=== PATIENT | female | born 1940 | race Caucasian/White ===

== ENCOUNTER → 2016-07-10 | Outpatient (CLI) | payer MEDICARE ==
--- NOTE | 2016-07-10 11:45 | MM ---
Reason for exam: additional evaluation requested from prior study. Last mammogram was performed 1 year ago. History: Patient is postmenopausal, has history of breast cancer at age 75, and has history of high-risk lesion on a previous biopsy at age 61. Family history of breast cancer in mother at age 66. Malignant MG pre op needle loc LT of the left breast, August 30, 2015. Malignant US biopsy breast VAD LT of the left breast, July 22, 2015. Malignant US biopsy breast add'l VAD LT of the left breast, July 22, 2015. Benign stereotactic core biopsy of the left breast, May 18, 2003. Excisional biopsy of the right breast, January 03, 2002. High risk stereotactic core biopsy of the right breast, December 16, 2001. Cyst aspiration of the left breast. Core biopsy of the left breast. Core biopsy of the right breast. Physical Findings: Nurse did not find any significant physical abnormalities on exam. MG Diagnostic Mammo w CAD TYRESE Bilateral CC and MLO view(s) were taken. Prior study comparison: July 22, 2015, left breast MG diagnostic mammo LT wo CAD. June 18, 2015, bilateral MG screening mammo w CAD. Finding: There is a 7 mm equal density (isodense), obscured mass in the upper outer quadrant of the right breast. These results were verbally communicated with the patient and result sheet given to the patient on 07/10/16. ASSESSMENT: Incomplete: need additional imaging evaluation, BI-RAD 0 RECOMMENDATION: Ultrasound of the right breast.
--- NOTE | 2016-07-10 11:48 | USB ---
Reason for exam: additional evaluation requested from abnormal screening. History: Patient is postmenopausal, has history of breast cancer at age 75, and has history of high-risk lesion on a previous biopsy at age 61. Family history of breast cancer in mother at age 66. Malignant MG pre op needle loc LT of the left breast, August 30, 2015. Malignant US biopsy breast VAD LT of the left breast, July 22, 2015. Malignant US biopsy breast add'l VAD LT of the left breast, July 22, 2015. Benign stereotactic core biopsy of the left breast, May 18, 2003. Excisional biopsy of the right breast, January 03, 2002. High risk stereotactic core biopsy of the right breast, December 16, 2001. Cyst aspiration of the left breast. Core biopsy of the left breast. Core biopsy of the right breast. US Breast Limited RT Right breast ultrasound demonstrates a 8mm cystic lesion at 9 o'clock and a 5 x 4 x 4mm solid, hypoechoic lesion at 10 o'clock. These results were verbally communicated with the patient and result sheet given to the patient on 07/10/16. ASSESSMENT: Suspicious, BI-RAD 4 RECOMMENDATION: Surgical consultation and stereotactic core biopsy of the right breast. Called Dr. Lynne with mammographic findings and has scheduled an appointment for the patient for 07/23/16 at 1:[address] Garibay. Right breast ultrasound core biopsy scheduled for 07/17/16 at 11:30. PRELIMINARY REPORT CALLED AND FAXED TO DR. GARIBAY ON 07/10/16 AT 300/TP.
== END | disposition home or self-care (01) ==
LOC: RADMAMWWP 08:49
PROVIDERS: ATTEND Radiology Radiation Oncology
DX: R92.2 Inconclusive mammogram (principal); R92.8 Other abnormal and inconclusive findings on diagnostic imaging of breast; C50.412 Malignant neoplasm of upper-outer quadrant of left female breast
CPT/HCPCS: 76642; G0204

== ENCOUNTER → 2016-07-17 | Day surgery (SDC) | payer MEDICARE ==
[~2016-07-17] MED LIST: ALPRAZolam 0.25 MG TAB ONE; BACITRACIN OINT 1 EACH PACKET TOPICAL ONE; LIDOCAINE 1% INJ 10MG/ML (20 ML MDV) ONE; SODIUM BICARB 4% 5 ML VIAL (0.48 MEQ/ML) ONE
--- NOTE | 2016-07-17 12:47 | USB ---
EXAMINATION TYPE: US biopsy breast VAD RT, MG diagnostic mammo RT wo CAD DATE OF EXAM: 07/17/2016 12:19 PM CLINICAL HISTORY: US. TECHNIQUE: Ultrasound guided core biopsy of right 10:00 breast. COMPARISON: NONE FINDINGS: The procedure of ultrasound guided core biopsy was explained to the patient. Benefits, alternatives, and risks were discussed. An informed consent was then obtained. The patient was placed in supine positioning for imaging and for the procedure. The overlying skin was prepped and draped in usual sterile fashion. Lidocaine buffered with bicarbonate was used as anesthetic into the skin and subcutaneous tissue up to area of concern in the right breast. A abdulaziz was made with surgical scalpel. Under ultrasound guidance, a 12-gauge vacuum assisted biopsy gun device was used to obtain 3 core samples. Following this, a biopsy clip was left in lesion with confirmatory mammogram. The patient tolerated the procedure well without any immediate complication. The patient was kept in the radiology department for short stay after the procedure and then discharged home in stable condition. IMPRESSION: Successful, uncomplicated ultrasound guided core biopsy of area of concern in the right breast, full pathology results to follow. Pathology Results: Benign BREAST, RIGHT, CORE BIOPSY: FIBROCYSTIC CHANGES WITH DENSE FIBROSIS AND SCAR SUGGESTIVE OF PREVIOUS PROCEDURE OR TREATMENT RELATED CHANGES. NEGATIVE FOR MALIGNANCY. Recommendation Follow up ultrasound of the right breast in 6 months. ODILOND
== END ==
LOC: RADUSWWP 10:04
PROVIDERS: ATTEND Surgery
DX: R92.8 Other abnormal and inconclusive findings on diagnostic imaging of breast (principal); N60.31 Fibrosclerosis of right breast; L90.5 Scar conditions and fibrosis of skin; Z88.1 Allergy status to other antibiotic agents; Z88.2 Allergy status to sulfonamides; Z88.8 Allergy status to other drugs, medicaments and biological substances
CPT/HCPCS: 88305; 19083; G0206; A4648; J2001

== ENCOUNTER → 2016-08-18 | Outpatient (CLI) | payer MEDICARE ==
[2016-08-18 16:18] LABS: Appearance,Urine Clear (Clear); Bilirubin,Urine Negative (Negative); Glucose,Urine (UA) Negative (Negative); Ketones,Urine Negative (Negative); Leukocyte Esterase,Urine Negative (Negative); Nitrite,Urine Negative (Negative); Particle Count 762; Protein,Urine 2+ (Negative); RBC,Urine <1 /hpf (0-5); Specific Gravity,Urine 1.006 (1.001-1.035); Squamous Epithelial Cell,Urine <1 /hpf (0-4); UA Billing (MACRO vs. MICRO) MICRO; Urobilinogen,Urine <2.0 mg/dL (<2.0); WBC,Urine 2 /hpf (0-5)
[2016-08-18 16:24] LABS: Calcium 9.1 mg/dL (8.4-10.2); Magnesium 2.1 mg/dL (1.6-2.3); Phosphorous 3.3 mg/dL (2.5-4.5); Potassium 4.5 mmol/L (3.5-5.1); Total Bilirubin 0.5 mg/dL (0.2-1.3); Total Protein 5.4 g/dL (6.3-8.2); Uric Acid 5.6 mg/dL (3.7-7.4)
[2016-08-18 16:39] LABS: Creatinine,Urine Random 49.4 mg/dL
[2016-08-19 08:53] LABS: Mis test requested (Non-blood) TP Urine Random
== END | disposition home or self-care (01) ==
LOC: LABWHC1 15:44
PROVIDERS: ATTEND Internal Medicine
DX: N18.3 Chronic kidney disease, stage 3 (moderate) (principal); N39.0 Urinary tract infection, site not specified; M10.9 Gout, unspecified; R80.9 Proteinuria, unspecified; E21.3 Hyperparathyroidism, unspecified; E55.9 Vitamin D deficiency, unspecified
CPT/HCPCS: 36415; 80053; 81001; 82306; 82570; 83735; 83970; 84100; 84156; 84550

== ENCOUNTER → 2016-11-12 | Outpatient (CLI) | payer MEDICARE ==
[2016-11-12 09:11] LABS: CH 33.9; CHCM 32.9; HCT 38.1 % (34.0-46.0); HDW 2.61; HGB 12.5 gm/dL (11.4-16.0); MCHC 32.9 g/dL (31.0-37.0); MCV 103.4 fL (80.0-100.0); Macrocytosis Slight; Mean Platelet Volume 9.8; RBC 3.68 m/uL (3.80-5.40); WBC 5.2 k/uL (3.8-10.6)
[2016-11-12 11:25] LABS: Calcium 9.1 mg/dL (8.4-10.2); Magnesium 2.1 mg/dL (1.6-2.3); Phosphorous 4.2 mg/dL (2.5-4.5); Potassium 4.6 mmol/L (3.5-5.1); Total Bilirubin 0.7 mg/dL (0.2-1.3); Uric Acid 6.1 mg/dL (3.7-7.4)
[2016-11-12 11:38] LABS: % Iron Saturation 31.8 % (20-50)
== END | disposition home or self-care (01) ==
LOC: LABWHC1 08:23
PROVIDERS: ATTEND Internal Medicine
DX: N18.3 Chronic kidney disease, stage 3 (moderate) (principal); D50.9 Iron deficiency anemia, unspecified; N25.81 Secondary hyperparathyroidism of renal origin; E55.9 Vitamin D deficiency, unspecified; M10.9 Gout, unspecified; G62.9 Polyneuropathy, unspecified
CPT/HCPCS: 36415; 80053; 82306; 82607; 82728; 83540; 83550; 83735; 83970; 84100; 84550; 85027

== ENCOUNTER → 2016-12-28 | Outpatient (CLI) | payer MEDICARE ==
--- NOTE | 2016-12-29 07:14 | MM ---
Reason for exam: follow-up at short interval from prior study. Last mammogram was performed 5 months ago. History: Patient is postmenopausal, has history of breast cancer at age 75, and has history of high-risk lesion on a previous biopsy at age 61. Family history of breast cancer in mother at age 66. Benign US biopsy breast VAD RT of the right breast, July 17, 2016. Malignant MG pre op needle loc LT of the left breast, August 30, 2015. Malignant US biopsy breast VAD LT of the left breast, July 22, 2015. Malignant US biopsy breast add'l VAD LT of the left breast, July 22, 2015. Benign stereotactic core biopsy of the left breast, May 18, 2003. Excisional biopsy of the right breast, January 03, 2002. High risk stereotactic core biopsy of the right breast, December 16, 2001. Cyst aspiration of the left breast. Core biopsy of the left breast. Core biopsy of the right breast. Physical Findings: Nurse did not find any significant physical abnormalities on exam. MG 3D Diag Mammo W/Cad RT CC and MLO view(s) were taken of the right breast. Prior study comparison: July 17, 2016, right breast MG diagnostic mammo RT wo CAD. July 10, 2016, bilateral MG diagnostic mammo w CAD TYRESE. The breast tissue is heterogeneously dense. This may lower the sensitivity of mammography. Previous mammotome biopsy in the right breast. Distortion noted in the right upper outer quadrant, 9.4cm from nipple. Ultrasound is recommended. These results were verbally communicated with the patient and result sheet given to the patient on 12/28/16. ASSESSMENT: Incomplete: need additional imaging evaluation, BI-RAD 0 RECOMMENDATION: Ultrasound of the right breast.
--- NOTE | 2016-12-29 07:17 | USB ---
Reason for exam: follow-up at short interval from prior study. History: Patient is postmenopausal, has history of breast cancer at age 75, and has history of high-risk lesion on a previous biopsy at age 61. Family history of breast cancer in mother at age 66. Benign US biopsy breast VAD RT of the right breast, July 17, 2016. Malignant MG pre op needle loc LT of the left breast, August 30, 2015. Malignant US biopsy breast VAD LT of the left breast, July 22, 2015. Malignant US biopsy breast add'l VAD LT of the left breast, July 22, 2015. Benign stereotactic core biopsy of the left breast, May 18, 2003. Excisional biopsy of the right breast, January 03, 2002. High risk stereotactic core biopsy of the right breast, December 16, 2001. Cyst aspiration of the left breast. Core biopsy of the left breast. Core biopsy of the right breast. US Breast Limited RT Right breast ultrasound demonstrates a hyperechoic lesion at 11 o'clock clip and a 0.4 x 0.6 x 0.4cm oval, cystic lesion at 10 o'clock. These results were verbally communicated with the patient and result sheet given to the patient on 12/28/16. ASSESSMENT: Benign, BI-RAD 2 RECOMMENDATION: Follow-up diagnostic mammogram of both breasts in 6 months.
== END | disposition home or self-care (01) ==
LOC: RADMAMWWP 13:20
PROVIDERS: ATTEND Surgery
DX: Z08 Encounter for follow-up examination after completed treatment for malignant neoplasm (principal); Z85.3 Personal history of malignant neoplasm of breast
CPT/HCPCS: 76642; G0206; G0279

== ENCOUNTER → 2017-02-17 | Outpatient (CLI) | payer MEDICARE ==
[2017-02-17 14:59] LABS: Appearance,Urine Clear (Clear); Bilirubin,Urine Negative (Negative); Glucose,Urine (UA) Negative (Negative); Ketones,Urine Negative (Negative); Leukocyte Esterase,Urine Negative (Negative); Mucus,Urine Rare /hpf; Nitrite,Urine Negative (Negative); Particle Count 1786; Protein,Urine 2+ (Negative); Squamous Epithelial Cell,Urine <1 /hpf (0-4); UA Billing (MACRO vs. MICRO) MICRO; Urobilinogen,Urine <2.0 mg/dL (<2.0); WBC,Urine 1 /hpf (0-5)
[2017-02-17 15:05] LABS: Calcium 8.3 mg/dL (8.4-10.2); Phosphorous 4.3 mg/dL (2.5-4.5); Potassium 4.6 mmol/L (3.5-5.1); Total Bilirubin 0.4 mg/dL (0.2-1.3); Total Protein 4.6 g/dL (6.3-8.2); Uric Acid 6.5 mg/dL (3.7-7.4)
[2017-02-17 15:21] LABS: Basophils % (A) 0 %; CHCM 33.4; Eosinophils # (A) 0.3 k/uL (0-0.7); Eosinophils % (A) 3 %; HCT 34.2 % (34.0-46.0); HDW 2.82; HGB 11.6 gm/dL (11.4-16.0); Luc # (Auto) 0.33; Luc % (Auto) 5; Lymphocytes # (A) 1.7 k/uL (1.0-4.8); Lymphocytes % (A) 23 %; MCH 33.8 pg (25.0-35.0); MCV 99.7 fL (80.0-100.0); Mean Platelet Volume 9.5; Monocytes # (A) 0.8 k/uL (0-1.0); Monocytes % (A) 12 %; Neutrophils # (A) 4.2 k/uL (1.3-7.7); Neutrophils % (A) 57 %; RBC 3.44 m/uL (3.80-5.40); RDW 14.7 % (11.5-15.5); WBC 7.3 k/uL (3.8-10.6); WBC (Perox) 7.23
[2017-02-17 19:49] LABS: % Iron Saturation 39.4 % (20-50)
== END | disposition home or self-care (01) ==
LOC: LABWHC1 14:05
PROVIDERS: ATTEND Internal Medicine
DX: N18.3 Chronic kidney disease, stage 3 (moderate) (principal); D64.9 Anemia, unspecified; E55.9 Vitamin D deficiency, unspecified; M10.9 Gout, unspecified; R39.15 Urgency of urination
CPT/HCPCS: 36415; 80053; 81001; 82306; 82570; 82728; 83540; 83550; 83735; 83970; 84100; 84156; 84550; 85025; 87086

== ENCOUNTER 2017-05-15 12:37 | Emergency (ER) | payer MEDICARE ==
[2017-05-15] MEDS ORDERED: SODIUM CHLORIDE 0.9% 1,000 ML IV STA (13:29)
[2017-05-15 13:46] LABS: Basophils # (A) 0.1 k/uL (0-0.2); Basophils % (A) 1 %; CH 33.1; CHCM 32.8; Eosinophils # (A) 0.2 k/uL (0-0.7); Eosinophils % (A) 3 %; HCT 41.1 % (34.0-46.0); HDW 2.43; HGB 13.2 gm/dL (11.4-16.0); Luc # (Auto) 0.25; Luc % (Auto) 3; Lymphocytes # (A) 1.6 k/uL (1.0-4.8); Lymphocytes % (A) 22 %; MCH 32.5 pg (25.0-35.0); MCV 101.5 fL (80.0-100.0); Macrocytosis Slight; Mean Platelet Volume 8.5; Monocytes # (A) 0.8 k/uL (0-1.0); Monocytes % (A) 10 %; Neutrophils # (A) 4.5 k/uL (1.3-7.7); Neutrophils % (A) 61 %; RBC 4.05 m/uL (3.80-5.40); WBC 7.4 k/uL (3.8-10.6); WBC (Perox) 7.74
--- NOTE | 2017-05-15 13:47 | ED ---
General Adult HPI - General Chief complaint: Allergic Reaction Stated complaint: Dizzy, poss reaction from medication Time Seen by Provider: 05/15/17 13:16 Source: patient, RN notes reviewed Mode of arrival: wheelchair Limitations: no limitations - History of Present Illness Initial comments: Patient is 77-year-old female who presents emergency room today with chief complaint of feeling lightheaded off and on over the last day. Patient does admit that she started a new antibiotic dose of Floxin. She states she was at [facility] doctor had earwax removed and was placed on antibiotics along with Claritin-D and eardrums. She states that her ears feel fine today. She states that she has felt somewhat lightheaded at times and states she is using a cane which usually does not have to use. She states it's like a "wave" that comes over and is conscious that quickly. She states she does have some old on something that it's gone. She was unsure if this was related to the medication as she was reading the side effects and believes that it might be due to this Floxin. She denies any other complaints or symptoms at this time. She states she feels relatively well down here in the emergency room. Patient denies any recent fever, chills, shortness of breath, chest pain, back pain, abdominal pain , nausea or vomiting, numbness or tingling, dysuria or hematuria, constipation or diarrhea, headaches or visual changes, or any other complaints. - Related Data Home Medications Medication Instructions Recorded Confirmed Acetaminophen Tab [Tylenol] 1,000 mg PO Q6HR PRN 11/11/13 05/15/17 Albuterol Sulfate [Proair Hfa] 1 puff INHALATION RT-Q6H PRN 11/11/13 05/15/17 Zolpidem [Ambien] 5 mg PO HS PRN 11/11/13 05/15/17 Brimonidine Tartrate [Alphagan P 1 drop BOTH EYES BID 08/28/15 05/15/17 0.1% Ophth Soln] Budesonide/Formoterol Fumarate 2 puff INHALATION RT-BID 08/28/15 05/15/17 [Symbicort 80-4.5 Mcg Inhaler] Desoximetasone [Topicort] 1 applic TOPICAL BID PRN 08/28/15 05/15/17 Flaxseed [Flaxseed Oil] 1,000 mg PO DAILY 08/28/15 05/15/17 Dyess-3 Fatty Acids/Fish Oil [Fish 900 mg PO DAILY 08/28/15 05/15/17 Oil 1,000 mg Softgel] Dorzolamide 2% [Trusopt 2%] 1 drops RIGHT EYE BID 03/02/16 05/15/17 Montelukast [Singulair] 10 mg PO DAILY 03/02/16 05/15/17 Omeprazole [PriLOSEC] 20 mg PO AC-BRKFST 03/02/16 05/15/17 Propylene Glycol/Peg 400/Pf 1 drop BOTH EYES BID 03/02/16 05/15/17 [Systane 0.3-0.4% Eye Drops] Acetaminophen Tab [Tylenol Tab] 500 mg PO HS 04/27/16 05/15/17 Cimetidine [Tagamet] 400 mg PO BID 04/27/16 05/15/17 Multivitamins, Thera [Multivitamin] 1 tab PO DAILY 04/27/16 05/15/17 Polyethylene Glycol 3350 [Miralax] 17 gm PO DAILY 04/27/16 05/15/17 Simvastatin [Zocor] 80 mg PO HS 04/27/16 05/15/17 Betamethasone Dipropionate 1 applic TOPICAL BID 05/15/17 05/15/17 [Betamethasone Dipropionate 0.05%] Ergocalciferol [Vitamin D2] 50,000 unit PO Q30D 05/15/17 05/15/17 Folic Acid 0.4 mg PO DAILY 05/15/17 05/15/17 Furosemide [Lasix] 40 mg PO DAILY 05/15/17 05/15/17 Meclizine [Antivert] 12.5 mg PO QID PRN 05/15/17 05/15/17 Prochlorperazine [Compazine] 10 mg PO Q8H PRN 05/15/17 05/15/17 Zylet 1 drop BOTH EYES DAILY PRN 05/15/17 05/15/17 traMADol HCL [Ultram] 50 mg PO Q4HR PRN 05/15/17 05/15/17 Allergies Allergy/AdvReac Type Severity Reaction Status Date / Time adhesive tape Allergy PEELS OFF Verified 05/15/17 13:37 SKIN aspirin Allergy Unknown Verified 05/15/17 13:37 ciprofloxacin [From Cipro] Allergy Unknown Verified 05/15/17 13:37 codeine Allergy Hallucinati Verified 05/15/17 13:37 ons Sulfa (Sulfonamide Allergy Unknown Verified 05/15/17 13:37 Antibiotics) NSAIDS (Non-Steroidal AdvReac CAUSED Verified 05/15/17 13:37 Anti-Inflamma BLEEDING ULCER prednisone AdvReac "I WAS Verified 05/15/17 13:37 GOING A MILE A MINUTE" BACTRIM/ZINC OINTMENT Allergy BUMPS Uncoded 05/15/17 12:52 Review of Systems ROS Statement: Those systems with pertinent positive or pertinent negative responses have been documented in the HPI. ROS Other: All systems not noted in ROS Statement are negative. Past Medical History Past Medical History: Asthma, Cancer, Hyperlipidemia, Osteoarthritis (OA), Rheumatoid Arthritis (RA) Additional Past Medical History / Comment(s): left breast ca, migraines, borderline high BP, hernia, hx ulcers, abdominal pain, irregular bowel movements , scrape on rt arm(skin thin on rt arm) History of Any Multi-Drug Resistant Organisms: None Reported Past Surgical History: Breast Surgery, Section, Joint Replacement, Orthopedic Surgery, Tonsillectomy Additional Past Surgical History / Comment(s): d&c, left sided lymph nodes removed- left breast lumpectomy, retina surgery, Yuval knee replacement, left ankle surgery, yuval cataracts,left knee arthroscopy Past Anesthesia/Blood Transfusion Reactions: Motion Sickness Additional Past Anesthesia/Blood Transfusion Reaction / Comment(s): motion sickness as child Past Psychological History: Anxiety, Depression Smoking Status: Never smoker Past Alcohol Use History: None Reported Past Drug Use History: None Reported - Past Family History Mother Family Medical History: Cancer General Exam - General Exam Comments Initial Comments: General: The patient is awake and alert, in no distress, and does not appear acutely ill. Eye: Pupils are equal, round and reactive to light, extra-ocular movements are intact. No nystagmus. There is normal conjunctiva bilaterally. No signs of icterus. Ears, nose, mouth and throat: There are moist mucous membranes and no oral lesions. Neck: The neck is supple, there is no tenderness or JVD. Cardiovascular: There is a regular rate and rhythm. No murmur, rub or gallop is appreciated. Respiratory: Lungs are clear to auscultation, respirations are non-labored, breath sounds are equal. No wheezes, stridor, rales, or rhonchi. Gastrointestinal: Soft, non-distended, non-tender abdomen without masses or organomegaly noted. There is no rebound or guarding present. No CVA tenderness. Bowel sounds are unremarkable. Musculoskeletal: Normal ROM, no tenderness. Strength 5/5. Sensation intact. Pulses equal bilaterally 2+. Neurological: A&O x 3. CN II-XII intact, There are no obvious motor or sensory deficits. Coordination appears grossly intact. Speech is normal. Skin: Skin is warm and dry and no rashes or lesions are noted. Psychiatric: Cooperative, appropriate mood & affect, normal judgment. Limitations: no limitations Course Vital Signs 05/15/17 05/15/17 12:45 15:04 Temperature 97.0 F L 97.5 F L Pulse Rate 89 68 Respiratory 18 13 Rate Blood Pressure 142/67 146/84 O2 Sat by Pulse 99 98 Oximetry EKG Findings - EKG Comments: EKG Findings:: EKG performed at 1358: Shows normal sinus rhythm at 75 bpm KS interval 176. QRS 146. QT/QTc 442/493. No acute ST changes. Compared to previous EKG on 01/19/2016. Medical Decision Making - Medical Decision Making Patient reexamined at this time showing no signs of distress. Patient's labs been reviewed and are unremarkable. Patient's patient feeling better after liter bolus emergency room. Patient's CT is negative. This is an attending physician Dr. Warner. Patient advised follow-up family doctor over the next 2 days return to emergency room if any symptoms increase or worsen or for any other concerns. - Lab Data Result diagrams: 05/15/17 13:35 05/15/17 13:35 Lab Results 05/15/17 05/15/17 05/15/17 Range/Units 13:35 13:35 13:35 WBC 7.4 (3.8-10.6) k/uL RBC 4.05 (3.80-5.40) m/uL Hgb 13.2 (11.4-16.0) gm/dL Hct 41.1 (34.0-46.0) % MCV 101.5 H (80.0-100.0) fL MCH 32.5 (25.0-35.0) pg MCHC 32.0 (31.0-37.0) g/dL RDW 14.0 (11.5-15.5) % Plt Count 252 (150-450) k/uL Neutrophils % 61 % Lymphocytes % 22 % Monocytes % 10 % Eosinophils % 3 % Basophils % 1 % Neutrophils # 4.5 (1.3-7.7) k/uL Lymphocytes # 1.6 (1.0-4.8) k/uL Monocytes # 0.8 (0-1.0) k/uL Eosinophils # 0.2 (0-0.7) k/uL Basophils # 0.1 (0-0.2) k/uL Macrocytosis Slight Sodium 134 L (137-145) mmol/L Potassium 3.9 (3.5-5.1) mmol/L Chloride 101 (98-107) mmol/L Carbon Dioxide 29 (22-30) mmol/L Anion Gap 4 mmol/L BUN 28 H (7-17) mg/dL Creatinine 1.63 H (0.52-1.04) mg/dL Est GFR (MDRD) Af Amer 37 (>60 ml/min/1.73 sqM) Est GFR (MDRD) Non-Af 31 (>60 ml/min/1.73 sqM) Glucose 119 H (74-99) mg/dL Calcium 8.9 (8.4-10.2) mg/dL Total Bilirubin 0.2 (0.2-1.3) mg/dL AST 39 H (14-36) U/L ALT 47 (9-52) U/L Alkaline Phosphatase 97 (38-126) U/L Troponin I 0.025 (0.000-0.034) ng/mL Total Protein 5.3 L (6.3-8.2) g/dL Albumin 3.1 L (3.5-5.0) g/dL Disposition Clinical Impression: Lightheaded Disposition: HOME SELF-CARE Condition: Good Instructions: Lightheadedness (ED) Additional Instructions: Please continue medication as discussed. Please follow-up with family doctor in the next 2 days of symptoms have not improved. Please return to emergency room if the symptoms increase or worsen or for any other concerns. Referrals: Que Pablo MD [Primary Care Provider] - 1-2 days Time of Disposition: 15:12
[2017-05-15 13:57] LABS: Calcium 8.9 mg/dL (8.4-10.2); Potassium 3.9 mmol/L (3.5-5.1); Total Bilirubin 0.2 mg/dL (0.2-1.3); Total Protein 5.3 g/dL (6.3-8.2)
--- NOTE | 2017-05-15 14:42 | CT ---
EXAMINATION TYPE: CT brain wo con DATE OF EXAM: 05/15/2017 COMPARISON: 02/20/2010 HISTORY: Dizziness CT DLP: 920.2 mGycm Automated exposure control for dose reduction was used. FINDINGS: There is mild cerebral cortical atrophy. There is no mass effect nor midline shift. There is no sign of intracranial hemorrhage. There is a 2 cm hypodense area in the insula left temporal lobe. The calv arium is intact. 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 NO ACUTE INTRACRANIAL ABNORMALITY. NO CHANGE.
[2017-05-15 15:27] VITALS: BP 144/71; PULSE 70; RESP 16; TEMP 97.4
== END 2017-05-15 15:27 | disposition home or self-care (01) ==
LOC: EC 12:37
DX: R42 Dizziness and giddiness (principal); J45.909 Unspecified asthma, uncomplicated; E78.5 Hyperlipidemia, unspecified; Z85.3 Personal history of malignant neoplasm of breast; Z79.51 Long term (current) use of inhaled steroids; Z79.899 Other long term (current) drug therapy; Z91.048 Other nonmedicinal substance allergy status; Z88.6 Allergy status to analgesic agent; Z88.1 Allergy status to other antibiotic agents; Z88.5 Allergy status to narcotic agent; Z88.8 Allergy status to other drugs, medicaments and biological substances; Z88.2 Allergy status to sulfonamides
CPT/HCPCS: 36415; 70450; 80053; 84484; 85025; 93005; 96360; 99284

== ENCOUNTER → 2017-06-22 | Outpatient (CLI) | payer MEDICARE ==
[2017-06-22 14:29] LABS: Calcium 9.1 mg/dL (8.4-10.2); Potassium 4.4 mmol/L (3.5-5.1)
== END | disposition home or self-care (01) ==
LOC: LABWHC1 13:36
PROVIDERS: ATTEND Internal Medicine
DX: N18.9 Chronic kidney disease, unspecified (principal)
CPT/HCPCS: 36415; 80048

== ENCOUNTER → 2017-07-14 | Outpatient (CLI) | payer MEDICARE ==
[2017-07-14 15:51] LABS: Albumin 3.3 g/dL (3.5-5.0); Calcium 9.2 mg/dL (8.4-10.2); Phosphorus 3.3 mg/dL (2.5-4.5); Potassium 4.2 mmol/L (3.5-5.1)
== END | disposition home or self-care (01) ==
LOC: LABWHC1 15:00
PROVIDERS: ATTEND Internal Medicine
DX: N18.3 Chronic kidney disease, stage 3 (moderate) (principal)
CPT/HCPCS: 36415; 80048; 80069

== ENCOUNTER → 2017-09-20 | Outpatient (CLI) | payer MEDICARE ==
[2017-09-20 09:37] LABS: HCT 40.4 % (34.0-46.0); HGB 13.7 gm/dL (11.4-16.0); MCH 31.4 pg (25.0-35.0); MCHC 33.9 g/dL (31.0-37.0); MCV 92.4 fL (80.0-100.0); Mean Platelet Volume 7.6; Platelet Count 275 k/uL (150-450); RBC 4.37 m/uL (3.80-5.40); RDW 13.5 % (11.5-15.5); WBC 7.5 k/uL (3.8-10.6)
[2017-09-20 09:56] LABS: Magnesium 1.9 mg/dL (1.6-2.3); Phosphorus 4.6 mg/dL (2.5-4.5); Potassium 4.2 mmol/L (3.5-5.1); Total Bilirubin 0.4 mg/dL (0.2-1.3); Total Protein 5.3 g/dL (6.3-8.2); Uric Acid 5.4 mg/dL (3.7-7.4)
[2017-09-20 10:10] LABS: Creatinine,Urine Random 35.8 mg/dL
[2017-09-20 10:28] LABS: Appearance,Urine Clear (Clear); Bacteria,Urine Rare /hpf; Bilirubin,Urine Negative (Negative); Blood,Urine Negative (Negative); Color,Urine Light Yellow; Glucose,Urine (UA) Negative (Negative); Ketones,Urine Negative (Negative); Leukocyte Esterase,Urine Negative (Negative); Nitrite,Urine Negative (Negative); Protein,Urine 2+ (Negative); RBC,Urine 1 /hpf (0-5); Specific Gravity,Urine 1.006 (1.001-1.035); Squamous Epithelial Cell,Urine <1 /hpf (0-4); Urobilinogen,Urine <2.0 mg/dL (<2.0); WBC,Urine 1 /hpf (0-5)
[2017-09-20 15:46] LABS: Protein, Total 5.1 g/dL (6.2-8.2)
[2017-09-20 15:50] LABS: Iron Saturation 32.48 (12.00-45.00)
[2017-09-20 15:54] LABS: Parathyroid Hormone Intact 47.2 pg/mL (14.0-72.0)
[2017-09-20 15:59] LABS: Vitamin D 25 Hydroxy 29.7 ng/mL (30.0-100.0)
[2017-09-21 11:47] LABS: Immunoglobulin M 35.5 mg/dL (40.0-280.0)
[2017-09-22 10:33] LABS: Albumin 3.04 g/dL (3.80-4.90)
== END | disposition home or self-care (01) ==
LOC: LABWHC1 08:22
PROVIDERS: ATTEND Internal Medicine
DX: C50.512 Malignant neoplasm of lower-outer quadrant of left female breast (principal); J45.909 Unspecified asthma, uncomplicated; G62.9 Polyneuropathy, unspecified; E85.9 Amyloidosis, unspecified; N18.3 Chronic kidney disease, stage 3 (moderate); D63.1 Anemia in chronic kidney disease; N39.0 Urinary tract infection, site not specified; R80.9 Proteinuria, unspecified; E21.3 Hyperparathyroidism, unspecified; E55.9 Vitamin D deficiency, unspecified; M10.9 Gout, unspecified
CPT/HCPCS: 36415; 80053; 81001; 82306; 82570; 82728; 82784; 83540; 83550; 83735; 83883; 83970; 84100; 84156; 84165; 84550; 85027; 86334

== ENCOUNTER → 2017-12-20 | Outpatient (CLI) | payer MEDICARE ==
[2017-12-20 14:30] LABS: HCT 40.2 % (34.0-46.0); HGB 13.3 gm/dL (11.4-16.0); MCH 30.4 pg (25.0-35.0); MCV 92.2 fL (80.0-100.0); Mean Platelet Volume 7.8; Platelet Count 236 k/uL (150-450); RBC 4.36 m/uL (3.80-5.40); RDW 14.2 % (11.5-15.5); WBC 8.1 k/uL (3.8-10.6)
[2017-12-20 14:33] LABS: Appearance,Urine Clear (Clear); Bilirubin,Urine Negative (Negative); Blood,Urine Negative (Negative); Color,Urine Yellow; Glucose,Urine (UA) Negative (Negative); Ketones,Urine Negative (Negative); Leukocyte Esterase,Urine Trace (Negative); Mucus,Urine Rare /hpf; Nitrite,Urine Negative (Negative); Protein,Urine 2+ (Negative); RBC,Urine 1 /hpf (0-5); Specific Gravity,Urine 1.011 (1.001-1.035); Squamous Epithelial Cell,Urine <1 /hpf (0-4); Urobilinogen,Urine <2.0 mg/dL (<2.0); WBC,Urine 2 /hpf (0-5)
[2017-12-20 14:43] LABS: Albumin 3.3 g/dL (3.5-5.0); Potassium 4.6 mmol/L (3.5-5.1); Total Protein 5.3 g/dL (6.3-8.2); Uric Acid 5.5 mg/dL (3.7-7.4)
[2017-12-20 14:44] LABS: Calcium 8.9 mg/dL (8.4-10.2); Phosphorus 3.7 mg/dL (2.5-4.5); Total Bilirubin 0.3 mg/dL (0.2-1.3)
[2017-12-20 15:02] LABS: Creatinine,Urine Random 76.7 mg/dL
[2017-12-20 18:32] LABS: Parathyroid Hormone Intact 59.6 pg/mL (14.0-72.0)
[2017-12-20 18:51] LABS: Iron Saturation 22.77 (12.00-45.00)
[2017-12-20 19:03] LABS: Vitamin D 25 Hydroxy 41.7 ng/mL (30.0-100.0)
== END | disposition home or self-care (01) ==
LOC: LABWHC1 13:59
PROVIDERS: ATTEND Internal Medicine
DX: N18.3 Chronic kidney disease, stage 3 (moderate) (principal); D64.9 Anemia, unspecified; E55.9 Vitamin D deficiency, unspecified; M10.9 Gout, unspecified
CPT/HCPCS: 36415; 80053; 81001; 82306; 82570; 82728; 83540; 83550; 83735; 83970; 84100; 84156; 84550; 85027

== ENCOUNTER → 2018-03-16 | Outpatient (CLI) | payer MEDICARE ==
--- NOTE | 2018-03-16 10:23 | MM ---
Reason for exam: history of breast cancer, mastectomy. Last mammogram was performed 7 months ago. History: Patient is postmenopausal, has history of breast cancer at age 75, and has history of high-risk lesion on a previous biopsy at age 61. Family history of breast cancer in mother at age 66. Benign US biopsy breast VAD RT of the right breast, July 17, 2016. Malignant MG pre op needle loc LT of the left breast, August 30, 2015. Malignant US biopsy breast VAD LT of the left breast, July 22, 2015. Malignant US biopsy breast add'l VAD LT of the left breast, July 22, 2015. Benign stereotactic core biopsy of the left breast, May 18, 2003. Excisional biopsy of the right breast, January 03, 2002. High risk stereotactic core biopsy of the right breast, December 16, 2001. Cyst aspiration of the left breast. Core biopsy of the left breast. Core biopsy of the right breast. Took hormonal contraceptives for 6 months beginning at age 25. Physical Findings: Nurse did not find any significant physical abnormalities on exam. MG 3D Diag Mammo W/Cad TYRESE Bilateral CC and MLO view(s) were taken. Prior study comparison: August 09, 2017, bilateral MG 3d diag mammo w/cad TYRESE. December 28, 2016, right breast MG 3d diag mammo w/cad RT. June 18, 2015, bilateral MG screening mammo w CAD. The breast tissue is heterogeneously dense. This may lower the sensitivity of mammography. Previous mammotome biopsy in the right breast. Stable scattered dystrophic calcifications on the left. Fat necrosis calcifications at the left lumpectomy site, stable from 2017. No significant new findings when compared with previous films. These results were verbally communicated with the patient and result sheet given to the patient on 03/16/18. ASSESSMENT: Benign, BI-RAD 2 RECOMMENDATION: Follow-up diagnostic mammogram of both breasts in 1 year.
== END | disposition home or self-care (01) ==
LOC: RADMAMWWP 08:54
PROVIDERS: ATTEND Radiology Radiation Oncology
DX: C50.412 Malignant neoplasm of upper-outer quadrant of left female breast (principal)
CPT/HCPCS: 77066; G0279; 77062

== ENCOUNTER → 2018-04-22 | Outpatient (CLI) | payer MEDICARE ==
[2018-04-22 12:54] LABS: Appearance,Urine Clear (Clear); Bacteria,Urine Rare /hpf; Bilirubin,Urine Negative (Negative); Blood,Urine Negative (Negative); Color,Urine Light Yellow; Glucose,Urine (UA) Negative (Negative); HCT 38.2 % (34.0-46.0); HGB 12.8 gm/dL (11.4-16.0); Ketones,Urine Negative (Negative); Leukocyte Esterase,Urine Negative (Negative); MCH 31.2 pg (25.0-35.0); MCHC 33.5 g/dL (31.0-37.0); MCV 93.2 fL (80.0-100.0); Mean Platelet Volume 7.5; Nitrite,Urine Negative (Negative); PH, Urine 6.5 (5.0-8.0); Platelet Count 269 k/uL (150-450); Protein,Urine 2+ (Negative); RDW 13.8 % (11.5-15.5); Specific Gravity,Urine 1.008 (1.001-1.035); Urobilinogen,Urine <2.0 mg/dL (<2.0); WBC 9.5 k/uL (3.8-10.6); WBC,Urine <1 /hpf (0-5)
[2018-04-22 13:16] LABS: Albumin 3.2 g/dL (3.5-5.0); Calcium 8.9 mg/dL (8.4-10.2); Phosphorus 4.1 mg/dL (2.5-4.5); Potassium 4.8 mmol/L (3.5-5.1); Total Bilirubin 0.4 mg/dL (0.2-1.3); Total Protein 5.8 g/dL (6.3-8.2); Uric Acid 5.1 mg/dL (3.7-7.4)
[2018-04-22 13:18] LABS: Creatinine,Urine Random 53.4 mg/dL
[2018-04-22 19:48] LABS: Parathyroid Hormone Intact 55.9 pg/mL (14.0-72.0)
[2018-04-22 21:04] LABS: Iron Saturation 31.44 (12.00-45.00)
[2018-04-22 21:14] LABS: Vitamin D 25 Hydroxy 29.5 ng/mL (30.0-100.0)
== END | disposition home or self-care (01) ==
LOC: LABWHC1 11:24
PROVIDERS: ATTEND Internal Medicine
DX: N18.3 Chronic kidney disease, stage 3 (moderate) (principal); D63.1 Anemia in chronic kidney disease; N39.0 Urinary tract infection, site not specified; R80.9 Proteinuria, unspecified; E21.3 Hyperparathyroidism, unspecified; E55.9 Vitamin D deficiency, unspecified; M10.9 Gout, unspecified
CPT/HCPCS: 36415; 80053; 81001; 82306; 82570; 82728; 83540; 83550; 83735; 83970; 84100; 84156; 84550; 85027

== ENCOUNTER → 2018-07-29 | Outpatient (CLI) | payer MEDICARE ==
[2018-07-29 17:47] LABS: HCT 42.3 % (34.0-46.0); HGB 13.1 gm/dL (11.4-16.0); MCH 29.4 pg (25.0-35.0); MCHC 31.1 g/dL (31.0-37.0); MCV 94.6 fL (80.0-100.0); Mean Platelet Volume 7.4; Platelet Count 239 k/uL (150-450); RBC 4.47 m/uL (3.80-5.40); RDW 14.1 % (11.5-15.5); WBC 7.7 k/uL (3.8-10.6)
[2018-07-29 18:02] LABS: Appearance,Urine Clear (Clear); Bacteria,Urine Rare /hpf; Bilirubin,Urine Negative (Negative); Blood,Urine Negative (Negative); Color,Urine Light Yellow; Glucose,Urine (UA) Negative (Negative); Ketones,Urine Negative (Negative); Leukocyte Esterase,Urine Negative (Negative); Nitrite,Urine Negative (Negative); PH, Urine 6.5 (5.0-8.0); Protein,Urine 2+ (Negative); RBC,Urine <1 /hpf (0-5); Specific Gravity,Urine 1.006 (1.001-1.035); Urobilinogen,Urine <2.0 mg/dL (<2.0); WBC,Urine 3 /hpf (0-5)
[2018-07-29 22:29] LABS: Parathyroid Hormone Intact 48.4 pg/mL (14.0-72.0)
[2018-07-29 22:46] LABS: Iron Saturation 19.31 (12.00-45.00)
[2018-07-29 22:49] LABS: Vitamin D 25 Hydroxy 22.4 ng/mL (30.0-100.0)
[2018-07-29 22:51] LABS: Albumin 3.7 g/dL (3.80-4.90); Albumin/Globulin Ratio 2.06 (1.20-2.10); Anion Gap 6.3 mmol/L (4.00-12.00); Carbon Dioxide 30.7 mmol/L (21.6-31.8); Globulin 1.8 g/dL (1.6-3.3); Magnesium 1.8 mg/dL (1.5-2.4); Phosphorus 3.6 mg/dL (2.4-5.1); Potassium 4.6 mmol/L (3.5-5.5); Total Bilirubin 0.4 mg/dL (0.3-1.2); Total Protein 5.5 g/dL (6.2-8.2); Uric Acid 5.2 mg/dL (2.9-7.7)
[2018-07-29 23:09] LABS: Creatinine,Urine Random 33.5 mg/dL
== END | disposition home or self-care (01) ==
LOC: LABWHC1 16:47
PROVIDERS: ATTEND Internal Medicine
DX: N18.3 Chronic kidney disease, stage 3 (moderate) (principal); D63.1 Anemia in chronic kidney disease; N39.0 Urinary tract infection, site not specified; R80.9 Proteinuria, unspecified; E21.3 Hyperparathyroidism, unspecified; E55.9 Vitamin D deficiency, unspecified; M10.9 Gout, unspecified
CPT/HCPCS: 36415; 80053; 81001; 82306; 82570; 82728; 83540; 83550; 83735; 83970; 84100; 84156; 84550; 85027

== ENCOUNTER → 2018-10-24 | Outpatient (CLI) | payer MEDICARE ==
[2018-10-24 19:35] LABS: Albumin 3.4 g/dL (3.80-4.90); Albumin/Globulin Ratio 2.13 (1.60-3.17); Anion Gap 5.3 mmol/L (4.00-12.00); Calcium 8.6 mg/dL (8.7-10.3); Carbon Dioxide 28.7 mmol/L (21.6-31.8); Globulin 1.6 g/dL (1.6-3.3); Magnesium 1.9 mg/dL (1.5-2.4); Phosphorus 3.8 mg/dL (2.4-5.1); Potassium 4.4 mmol/L (3.5-5.5); Total Bilirubin 0.4 mg/dL (0.3-1.2)
[2018-10-24 20:16] LABS: Vitamin D 25 Hydroxy 31.3 ng/mL (30.0-100.0)
[2018-10-24 21:04] LABS: Parathyroid Hormone Intact 67.6 pg/mL (14.0-72.0)
[2018-10-25 12:51] LABS: Immunoglobulin M 43.1 mg/dL (40.0-280.0)
[2018-10-25 13:32] LABS: Albumin 2.88 g/dL (3.80-4.90); Gamma Globulin 0.67 g/dL (0.70-1.50)
== END ==
LOC: LABWHC1 13:32
PROVIDERS: ATTEND Internal Medicine Hematology & Oncology
DX: E85.9 Amyloidosis, unspecified (principal); C50.512 Malignant neoplasm of lower-outer quadrant of left female breast; G62.9 Polyneuropathy, unspecified; J45.909 Unspecified asthma, uncomplicated; N18.3 Chronic kidney disease, stage 3 (moderate); E21.3 Hyperparathyroidism, unspecified; E55.9 Vitamin D deficiency, unspecified
CPT/HCPCS: 36415; 80053; 82306; 82784; 83735; 83883; 83970; 84100; 84165; 86334

== ENCOUNTER → 2019-01-19 | Outpatient (CLI) | payer MEDICARE ==
[2019-01-19 14:22] LABS: Basophils # (A) 0.1 k/uL (0-0.2); Basophils % (A) 1 %; Eosinophils # (A) 0.2 k/uL (0-0.7); Eosinophils % (A) 3 %; HCT 41.1 % (34.0-46.0); HGB 13.2 gm/dL (11.4-16.0); Lymphocytes # (A) 2.3 k/uL (1.0-4.8); Lymphocytes % (A) 28 %; MCH 29.7 pg (25.0-35.0); MCV 92.7 fL (80.0-100.0); Mean Platelet Volume 7.8; Monocytes # (A) 0.6 k/uL (0-1.0); Monocytes % (A) 8 %; Neutrophils # (A) 4.7 k/uL (1.3-7.7); Neutrophils % (A) 57 %; Platelet Count 234 k/uL (150-450); RBC 4.43 m/uL (3.80-5.40); RDW 13.9 % (11.5-15.5); WBC 8.2 k/uL (3.8-10.6)
[2019-01-19 17:13] LABS: Erythrocyte Sedimentation Rate 14 mm/hr (0-20)
== END | disposition home or self-care (01) ==
LOC: LABWHC1 13:38
PROVIDERS: ATTEND Orthopaedic Surgery
DX: M25.571 Pain in right ankle and joints of right foot (principal); M19.071 Primary osteoarthritis, right ankle and foot
CPT/HCPCS: 36415; 85025; 85652; 86140

== ENCOUNTER → 2019-02-22 | Outpatient (CLI) | payer MEDICARE ==
[2019-02-22 15:25] LABS: HCT 39.9 % (34.0-46.0); HGB 13.3 gm/dL (11.4-16.0); MCH 31.2 pg (25.0-35.0); MCHC 33.3 g/dL (31.0-37.0); MCV 93.9 fL (80.0-100.0); Mean Platelet Volume 7.7; Platelet Count 226 k/uL (150-450); RBC 4.24 m/uL (3.80-5.40); WBC 7.4 k/uL (3.8-10.6)
[2019-02-22 15:26] LABS: Amorphous Sediment,Urine Rare /hpf; Appearance,Urine Clear (Clear); Bilirubin,Urine Negative (Negative); Blood,Urine Negative (Negative); Color,Urine Light Yellow; Glucose,Urine (UA) Negative (Negative); Hyaline Casts,Urine 1 /lpf (0-2); Ketones,Urine Negative (Negative); Leukocyte Esterase,Urine Trace (Negative); Nitrite,Urine Negative (Negative); PH, Urine 6.5 (5.0-8.0); Protein,Urine 3+ (Negative); Squamous Epithelial Cell,Urine <1 /hpf (0-4); Urobilinogen,Urine <2.0 mg/dL (<2.0); WBC,Urine 4 /hpf (0-5)
[2019-02-22 19:43] LABS: Vitamin D 25 Hydroxy 26.3 ng/mL (30.0-100.0)
[2019-02-22 19:55] LABS: African American GFR (CKD) 35.9 (60.0-200.0); Albumin 3.3 g/dL (3.80-4.90); Albumin/Globulin Ratio 1.94 (1.60-3.17); Anion Gap 5.3 mmol/L (4.00-12.00); Calcium 8.7 mg/dL (8.7-10.3); Carbon Dioxide 29.7 mmol/L (21.6-31.8); Globulin 1.7 g/dL (1.6-3.3); Magnesium 1.9 mg/dL (1.5-2.4); Phosphorus 3.6 mg/dL (2.4-5.1); Potassium 4.7 mmol/L (3.5-5.5); Total Bilirubin 0.3 mg/dL (0.3-1.2)
[2019-02-23 01:17] LABS: Creatinine,Urine Random 63.9 mg/dL
[2019-02-23 01:37] LABS: Total Protein,Urine Random 250.2 mg/dL (0.0-13.5)
== END | disposition home or self-care (01) ==
LOC: LABWHC1 14:53
PROVIDERS: ATTEND Internal Medicine
DX: N39.0 Urinary tract infection, site not specified (principal); N25.81 Secondary hyperparathyroidism of renal origin; E55.9 Vitamin D deficiency, unspecified; M10.9 Gout, unspecified; N18.3 Chronic kidney disease, stage 3 (moderate)
CPT/HCPCS: 36415; 80053; 81001; 82306; 82570; 83735; 83970; 84100; 84156; 84550; 85027

== ENCOUNTER → 2019-05-08 | Outpatient (CLI) | payer MEDICARE ==
--- NOTE | 2019-05-08 12:02 | MM ---
Reason for exam: additional evaluation requested from prior study. Last mammogram was performed 1 year and 2 months ago. History: Patient is postmenopausal, has history of breast cancer at age 75, and has history of high-risk lesion on a previous biopsy at age 61. Family history of breast cancer in mother at age 66. Benign US biopsy breast VAD RT of the right breast, July 17, 2016. Malignant MG pre op needle loc LT of the left breast, August 30, 2015. Malignant US biopsy breast VAD LT of the left breast, July 22, 2015. Malignant US biopsy breast add'l VAD LT of the left breast, July 22, 2015. Benign stereotactic core biopsy of the left breast, May 18, 2003. Excisional biopsy of the right breast, January 03, 2002. High risk stereotactic core biopsy of the right breast, December 16, 2001. Cyst aspiration of the left breast. Core biopsy of the left breast. Core biopsy of the right breast. Took hormonal contraceptives for 6 months beginning at age 25. Physical Findings: Nurse did not find any significant physical abnormalities on exam. MG 3D Diag Mammo W/Cad TYRESE Bilateral CC and MLO view(s) were taken. Prior study comparison: March 16, 2018, bilateral MG 3d diag mammo w/cad TYRESE. August 09, 2017, bilateral MG 3d diag mammo w/cad TYRESE. The breast tissue is heterogeneously dense. This may lower the sensitivity of mammography. Benign appearing bilateral calcifications. Right upper outer quadrant middle posterior depth architectural distortion 8-9cm from nipple. Post therapy change on the left. These results were verbally communicated with the patient and result sheet given to the patient on 05/08/19. ASSESSMENT: Incomplete: need additional imaging evaluation, BI-RAD 0 RECOMMENDATION: Ultrasound of the right breast. (lateral)
--- NOTE | 2019-05-08 12:05 | USB ---
Reason for exam: additional evaluation requested from abnormal screening. History: Patient is postmenopausal, has history of breast cancer at age 75, and has history of high-risk lesion on a previous biopsy at age 61. Family history of breast cancer in mother at age 66. Benign US biopsy breast VAD RT of the right breast, July 17, 2016. Malignant MG pre op needle loc LT of the left breast, August 30, 2015. Malignant US biopsy breast VAD LT of the left breast, July 22, 2015. Malignant US biopsy breast add'l VAD LT of the left breast, July 22, 2015. Benign stereotactic core biopsy of the left breast, May 18, 2003. Excisional biopsy of the right breast, January 03, 2002. High risk stereotactic core biopsy of the right breast, December 16, 2001. Cyst aspiration of the left breast. Core biopsy of the left breast. Core biopsy of the right breast. Took hormonal contraceptives for 6 months beginning at age 25. US Breast Limited RT Right limited breast ultrasound including focal area of concern, retroareolar and axilla demonstrates a 0.5 x 0.3 x 0.3cm oval, mixed, hypoechoic lesion at 10 o'clock, smaller than prior (prior 0.7 x 0.7 x 0.8cm). These results were verbally communicated with the patient and result sheet given to the patient on 05/08/19. ASSESSMENT: Suspicious, BI-RAD 4 RECOMMENDATION: Stereotactic core biopsy of the right breast. (Noted patient did not undergo biopsy recommendation in 2018) Called Dr. Lynne's office with mammographic findings. PRELIMINARY REPORT CALLED AND FAXED TO DR. LYNNE ON 05/08/19.
== END | disposition home or self-care (01) ==
LOC: RADMAMWWP 07:14
PROVIDERS: ATTEND Radiology Radiation Oncology
DX: R92.8 Other abnormal and inconclusive findings on diagnostic imaging of breast (principal)
CPT/HCPCS: 77066; 76642; G0279; 77062

== ENCOUNTER → 2019-07-03 | Outpatient (CLI) | payer MEDICARE ==
[2019-07-03 10:23] LABS: HCT 41.5 % (34.0-46.0); HGB 13.3 gm/dL (11.4-16.0); MCH 30.7 pg (25.0-35.0); MCHC 32.1 g/dL (31.0-37.0); MCV 95.6 fL (80.0-100.0); Mean Platelet Volume 8.7; Platelet Count 235 k/uL (150-450); RBC 4.34 m/uL (3.80-5.40); RDW 13.4 % (11.5-15.5); WBC 8.3 k/uL (3.8-10.6)
[2019-07-03 10:45] LABS: Appearance,Urine Clear (Clear); Bilirubin,Urine Negative (Negative); Blood,Urine Negative (Negative); Color,Urine Yellow; Glucose,Urine (UA) Negative (Negative); Ketones,Urine Negative (Negative); Leukocyte Esterase,Urine Trace (Negative); Nitrite,Urine Negative (Negative); PH, Urine 6.5 (5.0-8.0); Protein,Urine 3+ (Negative); RBC,Urine <1 /hpf (0-5); Specific Gravity,Urine 1.011 (1.001-1.035); Urobilinogen,Urine <2.0 mg/dL (<2.0); WBC,Urine 5 /hpf (0-5)
[2019-07-03 16:37] LABS: African American GFR (CKD) 35.7 (60.0-200.0); Albumin 3.4 g/dL (3.80-4.90); Anion Gap 4.5 mmol/L (4.00-12.00); BUN/Creat Ratio 17.5 Ratio (12.00-20.00); Calcium 8.8 mg/dL (8.7-10.3); Carbon Dioxide 31.5 mmol/L (21.6-31.8); Globulin 1.7 g/dL (1.6-3.3); Non-African American GFR(CKD) 30.8 (60.0-200.0); Potassium 4.7 mmol/L (3.5-5.5); Total Bilirubin 0.5 mg/dL (0.2-1.2); Total Protein 5.1 g/dL (6.2-8.2); Uric Acid 6.9 mg/dL (2.9-7.7)
[2019-07-03 19:33] LABS: Creatinine,Urine Random 85.7 mg/dL
== END ==
LOC: LABWHC1 09:40
PROVIDERS: ATTEND Nurse Practitioner Family
DX: N18.3 Chronic kidney disease, stage 3 (moderate) (principal)
CPT/HCPCS: 36415; 80053; 81001; 82306; 82570; 84156; 84550; 85027

== ENCOUNTER → 2019-10-05 | Outpatient (CLI) | payer MEDICARE ==
[2019-10-05 10:38] LABS: Basophils # (A) 0.1 k/uL (0-0.2); Basophils % (A) 1 %; Eosinophils # (A) 0.2 k/uL (0-0.7); Eosinophils % (A) 3 %; HCT 38.1 % (34.0-46.0); HGB 12.4 gm/dL (11.4-16.0); Lymphocytes # (A) 1.7 k/uL (1.0-4.8); Lymphocytes % (A) 25 %; MCHC 32.7 g/dL (31.0-37.0); MCV 94.7 fL (80.0-100.0); Mean Platelet Volume 8.8; Monocytes # (A) 0.7 k/uL (0-1.0); Monocytes % (A) 10 %; Neutrophils # (A) 3.8 k/uL (1.3-7.7); Neutrophils % (A) 56 %; Platelet Count 223 k/uL (150-450); RBC 4.02 m/uL (3.80-5.40); RDW 12.9 % (11.5-15.5); WBC 6.8 k/uL (3.8-10.6)
[2019-10-05 17:25] LABS: % Iron Saturation 32.47 (12.00-45.00); African American GFR (CKD) 33.1 (60.0-200.0); Albumin/Globulin Ratio 1.76 (1.60-3.17); Anion Gap 5.5 mmol/L (4.00-12.00); BUN/Creat Ratio 18.82 Ratio (12.00-20.00); Calcium 8.3 mg/dL (8.7-10.3); Carbon Dioxide 28.5 mmol/L (21.6-31.8); Chol/HDL Ratio 2.01; Globulin 1.7 g/dL (1.6-3.3); LDL Cholesterol,Calculated 47.8 mg/dL (0.0-131.0); Non-African American GFR(CKD) 28.6 (60.0-200.0); Potassium 4.5 mmol/L (3.5-5.5); Total Bilirubin 0.3 mg/dL (0.3-1.2); Total Protein 4.7 g/dL (6.2-8.2); VLDL Calculation 25.2 mg/dL (5.00-40.00)
[2019-10-05 17:27] LABS: T4, Free (Free Thyroxine) 1.3 ng/dL (0.80-1.80)
== END | disposition home or self-care (01) ==
LOC: LABWHC1 10:08
PROVIDERS: ATTEND Radiology Radiation Oncology
DX: E03.2 Hypothyroidism due to medicaments and other exogenous substances (principal); C50.412 Malignant neoplasm of upper-outer quadrant of left female breast; C90.00 Multiple myeloma not having achieved remission; E11.22 Type 2 diabetes mellitus with diabetic chronic kidney disease; E55.9 Vitamin D deficiency, unspecified; E78.2 Mixed hyperlipidemia; D63.0 Anemia in neoplastic disease; R53.82 Chronic fatigue, unspecified
CPT/HCPCS: 36415; 80053; 80061; 82306; 82607; 82784; 83540; 83550; 84439; 84443; 84481; 85025

== ENCOUNTER → 2019-10-12 | Outpatient (CLI) | payer MEDICARE ==
[2019-10-12 15:44] LABS: Chol/HDL Ratio 1.97
== END | disposition home or self-care (01) ==
LOC: LABWHC1 08:51
PROVIDERS: ATTEND Otolaryngology
DX: E78.5 Hyperlipidemia, unspecified (principal)
CPT/HCPCS: 36415; 80061

== ENCOUNTER → 2019-11-24 | Outpatient (CLI) | payer MEDICARE ==
[2019-11-24 12:43] LABS: HCT 38.6 % (34.0-46.0); HGB 12.6 gm/dL (11.4-16.0); MCH 31.2 pg (25.0-35.0); MCHC 32.6 g/dL (31.0-37.0); MCV 95.8 fL (80.0-100.0); Mean Platelet Volume 9.3; Platelet Count 246 k/uL (150-450); RBC 4.03 m/uL (3.80-5.40); RDW 13.5 % (11.5-15.5); WBC 7.1 k/uL (3.8-10.6)
[2019-11-24 14:09] LABS: Protein/Creatinine Ratio,Urine 7.207
[2019-11-24 14:30] LABS: Appearance,Urine Clear (Clear); Bilirubin,Urine Negative (Negative); Blood,Urine Negative (Negative); Color,Urine Light Yellow; Glucose,Urine (UA) Negative (Negative); Ketones,Urine Negative (Negative); Leukocyte Esterase,Urine Negative (Negative); Nitrite,Urine Negative (Negative); Protein,Urine 3+ (Negative); RBC,Urine <1 /hpf (0-5); Specific Gravity,Urine 1.007 (1.001-1.035); Squamous Epithelial Cell,Urine <1 /hpf (0-4); Urobilinogen,Urine <2.0 mg/dL (<2.0); WBC,Urine 1 /hpf (0-5)
[2019-11-24 19:54] LABS: Protein, Total 4.6 g/dL (6.2-8.2)
[2019-11-24 20:08] LABS: African American GFR (CKD) 33.1 (60.0-200.0); Albumin 2.8 g/dL (3.80-4.90); Albumin/Globulin Ratio 1.47 (1.60-3.17); Anion Gap 8.1 mmol/L (4.00-12.00); BUN/Creat Ratio 19.41 Ratio (12.00-20.00); Calcium 8.4 mg/dL (8.7-10.3); Carbon Dioxide 27.9 mmol/L (21.6-31.8); Globulin 1.9 g/dL (1.6-3.3); Magnesium 1.8 mg/dL (1.5-2.4); Non-African American GFR(CKD) 28.6 (60.0-200.0); Phosphorus 4.1 mg/dL (2.4-5.1); Potassium 5.5 mmol/L (3.5-5.5); Total Bilirubin 0.3 mg/dL (0.3-1.2); Total Protein 4.7 g/dL (6.2-8.2); Uric Acid 5.5 mg/dL (2.9-7.7)
[2019-11-25 10:02] LABS: Free Kappa Lt Chain Qnt, Serum 2.24 mg/dL (0.33-1.94)
[2019-11-29 15:47] LABS: Albumin 2.35 g/dL (3.80-4.90); Gamma Globulin 0.65 g/dL (0.70-1.50)
== END | disposition home or self-care (01) ==
LOC: LABWHC1 10:00
PROVIDERS: ATTEND Internal Medicine
DX: R00.0 Tachycardia, unspecified (principal); E85.4 Organ-limited amyloidosis; N08 Glomerular disorders in diseases classified elsewhere; N39.0 Urinary tract infection, site not specified; R80.9 Proteinuria, unspecified; E55.9 Vitamin D deficiency, unspecified; M10.9 Gout, unspecified; N18.3 Chronic kidney disease, stage 3 (moderate); D63.1 Anemia in chronic kidney disease
CPT/HCPCS: 36415; 80053; 81001; 82306; 82570; 83735; 83883; 83970; 84100; 84156; 84165; 84166; 84443; 84550; 85027

== ENCOUNTER → 2020-01-04 | Outpatient (CLI) | payer MEDICARE ==
[2020-01-04 08:03] LABS: Basophils # (A) 0.1 k/uL (0-0.2); Basophils % (A) 1 %; Eosinophils # (A) 0.2 k/uL (0-0.7); Eosinophils % (A) 1 %; HGB 11.7 gm/dL (11.4-16.0); Lymphocytes # (A) 1.2 k/uL (1.0-4.8); Lymphocytes % (A) 9 %; MCH 31.7 pg (25.0-35.0); MCHC 32.6 g/dL (31.0-37.0); MCV 97.2 fL (80.0-100.0); Mean Platelet Volume 8.8; Monocytes # (A) 0.8 k/uL (0-1.0); Monocytes % (A) 5 %; Neutrophils # (A) 11.8 k/uL (1.3-7.7); Neutrophils % (A) 83 %; Platelet Count 203 k/uL (150-450); RDW 13.7 % (11.5-15.5); WBC 14.2 k/uL (3.8-10.6)
[2020-01-04 08:13] LABS: Appearance,Urine Cloudy (Clear); Bacteria,Urine Occasional /hpf; Bilirubin,Urine Negative (Negative); Blood,Urine Moderate (Negative); Color,Urine Light Yellow; Glucose,Urine (UA) Negative (Negative); Ketones,Urine Negative (Negative); Leukocyte Esterase,Urine Large (Negative); Mucus,Urine Rare /hpf; Nitrite,Urine Negative (Negative); Protein,Urine 3+ (Negative); RBC,Urine 89 /hpf (0-5); Urobilinogen,Urine <2.0 mg/dL (<2.0); WBC,Urine 141 /hpf (0-5)
[2020-01-04 11:44] LABS: Protein, Total 4.5 g/dL (6.2-8.2)
[2020-01-04 11:55] LABS: T4, Free (Free Thyroxine) 1.3 ng/dL (0.80-1.80)
[2020-01-04 12:03] LABS: Albumin 2.9 g/dL (3.80-4.90); Albumin/Globulin Ratio 1.71 (1.60-3.17); Anion Gap 6.4 mmol/L (4.00-12.00); BUN/Creat Ratio 18.95 Ratio (12.00-20.00); Bilirubin, Conjugated 0.2 mg/dL (0.20-0.40); Bilirubin,Unconjugated 0.3 mg/dL; Calcium 8.5 mg/dL (8.7-10.3); Carbon Dioxide 27.6 mmol/L (21.6-31.8); Globulin 1.7 g/dL (1.6-3.3); Potassium 4.5 mmol/L (3.5-5.5); Total Bilirubin 0.5 mg/dL (0.3-1.2); Total Protein 4.6 g/dL (6.2-8.2)
[2020-01-04 12:09] LABS: Immunoglobulin E 28.1 IU/mL (0.00-114.00)
[2020-01-04 13:09] LABS: Free Kappa Lt Chain Qnt, Serum 1.95 mg/dL (0.33-1.94); Immunoglobulin M 27.1 mg/dL (40.0-280.0)
[2020-01-10 09:10] LABS: Albumin 2.31 g/dL (3.80-4.90); Gamma Globulin 0.63 g/dL (0.70-1.50)
== END | disposition home or self-care (01) ==
LOC: LABWHC1 07:11
PROVIDERS: ATTEND Radiology Radiation Oncology
DX: C90.00 Multiple myeloma not having achieved remission (principal); C50.912 Malignant neoplasm of unspecified site of left female breast; Z92.3 Personal history of irradiation; Z17.0 Estrogen receptor positive status [ER+]; N18.3 Chronic kidney disease, stage 3 (moderate); E55.9 Vitamin D deficiency, unspecified
CPT/HCPCS: 36415; 80048; 80076; 81001; 82306; 82607; 82784; 82785; 83883; 84165; 84439; 84443; 84481; 85025; 87077; 87086; 87186

== ENCOUNTER → 2020-01-10 | Outpatient (CLI) | payer MEDICARE ==
--- NOTE | 2020-01-10 13:27 | MM ---
Reason for exam: follow-up at short interval from prior study. Last mammogram was performed 8 months ago. History: Patient is postmenopausal, has history of breast cancer at age 75, and has history of high-risk lesion on a previous biopsy at age 61. Family history of breast cancer in mother at age 66. Benign US biopsy breast VAD RT of the right breast, July 17, 2016. Malignant MG pre op needle loc LT of the left breast, August 30, 2015. Malignant US biopsy breast VAD LT of the left breast, July 22, 2015. Malignant US biopsy breast add'l VAD LT of the left breast, July 22, 2015. Benign stereotactic core biopsy of the left breast, May 18, 2003. Excisional biopsy of the right breast, January 03, 2002. High risk stereotactic core biopsy of the right breast, December 16, 2001. Cyst aspiration of the left breast. Core biopsy of the left breast. Core biopsy of the right breast. Took hormonal contraceptives for 6 months beginning at age 25. Physical Findings: Nurse did not find any significant physical abnormalities on exam. MG 3D Diag Mammo W/Cad TYRESE Bilateral CC and MLO view(s) were taken. Prior study comparison: May 08, 2019, bilateral MG 3d diag mammo w/cad TYRESE. March 16, 2018, bilateral MG 3d diag mammo w/cad TYRESE. The breast tissue is heterogeneously dense. This may lower the sensitivity of mammography. No significant new findings when compared with previous films. These results were verbally communicated with the patient and result sheet given to the patient on 01/10/20. ASSESSMENT: Benign, BI-RAD 2 RECOMMENDATION: Follow-up diagnostic mammogram of both breasts in 1 year. Manage patient on a clinical basis.
== END | disposition home or self-care (01) ==
LOC: RADMAMWWP 08:43
PROVIDERS: ATTEND Radiology Radiation Oncology
DX: C50.912 Malignant neoplasm of unspecified site of left female breast (principal); R92.8 Other abnormal and inconclusive findings on diagnostic imaging of breast; C90.00 Multiple myeloma not having achieved remission; Z92.3 Personal history of irradiation; Z17.0 Estrogen receptor positive status [ER+]
CPT/HCPCS: 77066; G0279; 77062

== ENCOUNTER → 2020-02-28 | Outpatient (CLI) | payer MEDICARE ==
[2020-02-28 09:07] LABS: Appearance,Urine Clear (Clear); Bilirubin,Urine Negative (Negative); Blood,Urine Trace (Negative); Color,Urine Light Yellow; Glucose,Urine (UA) Negative (Negative); Ketones,Urine Negative (Negative); Leukocyte Esterase,Urine Negative (Negative); Nitrite,Urine Negative (Negative); PH, Urine 6.5 (5.0-8.0); Protein,Urine 2+ (Negative); Specific Gravity,Urine 1.004 (1.001-1.035); Urobilinogen,Urine <2.0 mg/dL (<2.0); WBC,Urine 2 /hpf (0-5)
[2020-02-28 09:20] LABS: HGB 11.1 gm/dL (11.4-16.0); MCH 30.5 pg (25.0-35.0); MCHC 31.8 g/dL (31.0-37.0); MCV 96.1 fL (80.0-100.0); Platelet Count 167 k/uL (150-450); RBC 3.64 m/uL (3.80-5.40); RDW 13.9 % (11.5-15.5); WBC 6.7 k/uL (3.8-10.6)
[2020-02-28 09:25] LABS: Creatinine,Urine Random 40.1 mg/dL
[2020-02-28 09:33] LABS: Protein/Creatinine Ratio,Urine 8.504
[2020-02-28 16:52] LABS: % Iron Saturation 30.21 (12.00-45.00); Albumin 2.7 g/dL (3.80-4.90); Albumin/Globulin Ratio 1.69 (1.60-3.17); Anion Gap 3.3 mmol/L (4.00-12.00); Calcium 8.4 mg/dL (8.7-10.3); Carbon Dioxide 30.7 mmol/L (21.6-31.8); Globulin 1.6 g/dL (1.6-3.3); Magnesium 1.9 mg/dL (1.5-2.4); Non-African American GFR(CKD) 23.3 (60.0-200.0); Phosphorus 4.2 mg/dL (2.4-5.1); Potassium 4.1 mmol/L (3.5-5.5); Total Bilirubin 0.4 mg/dL (0.2-1.2); Total Protein 4.3 g/dL (6.2-8.2)
[2020-02-28 17:00] LABS: Ferritin 258.9 ng/mL (10.0-291.0)
== END | disposition home or self-care (01) ==
LOC: LAB 07:24
PROVIDERS: ATTEND Internal Medicine
DX: N39.0 Urinary tract infection, site not specified (principal); D63.1 Anemia in chronic kidney disease; N18.3 Chronic kidney disease, stage 3 (moderate); N25.81 Secondary hyperparathyroidism of renal origin; E55.9 Vitamin D deficiency, unspecified; R80.9 Proteinuria, unspecified; M10.9 Gout, unspecified
CPT/HCPCS: 36415; 80053; 81001; 82306; 82570; 82728; 83540; 83550; 83735; 83970; 84100; 84156; 84550; 85027

== ENCOUNTER → 2020-07-12 | Outpatient (CLI) | payer MEDICARE ==
[2020-07-12 11:38] LABS: Basophils # (A) 0.1 k/uL (0-0.2); Basophils % (A) 2 %; Eosinophils # (A) 0.6 k/uL (0-0.7); Eosinophils % (A) 9 %; HGB 10.9 gm/dL (11.4-16.0); Lymphocytes # (A) 1.2 k/uL (1.0-4.8); Lymphocytes % (A) 17 %; MCH 32.4 pg (25.0-35.0); MCV 95.3 fL (80.0-100.0); Mean Platelet Volume 8.7; Monocytes # (A) 0.5 k/uL (0-1.0); Monocytes % (A) 8 %; Neutrophils # (A) 4.1 k/uL (1.3-7.7); Neutrophils % (A) 61 %; Platelet Count 209 k/uL (150-450); RBC 3.36 m/uL (3.80-5.40); WBC 6.7 k/uL (3.8-10.6)
[2020-07-12 12:20] LABS: Appearance,Urine Clear (Clear); Bilirubin,Urine Negative (Negative); Blood,Urine Small (Negative); Color,Urine Colorless; Glucose,Urine (UA) Negative (Negative); Ketones,Urine Negative (Negative); Leukocyte Esterase,Urine Negative (Negative); Mucus,Urine Rare /hpf; Nitrite,Urine Negative (Negative); Protein,Urine 2+ (Negative); RBC,Urine <1 /hpf (0-5); Specific Gravity,Urine 1.005 (1.001-1.035); Squamous Epithelial Cell,Urine <1 /hpf (0-4); Urobilinogen,Urine <2.0 mg/dL (<2.0); WBC,Urine 1 /hpf (0-5)
[2020-07-12 20:18] LABS: ALT 48 U/L (8-44); AST 62 U/L (13-35); African American GFR (CKD) 24.1 (60.0-200.0); Alkaline Phosphatase 97 U/L (41-126); BUN/Creat Ratio 19.55 Ratio (12.00-20.00); Bilirubin, Conjugated <0.20 mg/dL (0.20-0.40); Calcium 8.4 mg/dL (8.7-10.3); Carbon Dioxide 33.5 mmol/L (21.6-31.8); Chloride 101 mmol/L (96-109); Globulin 1.5 g/dL (1.6-3.3); Glucose 94 mg/dL (70-110); Non-African American GFR(CKD) 20.8 (60.0-200.0); Potassium 3.7 mmol/L (3.5-5.5); Sodium 139 mmol/L (135-145); Total Bilirubin 0.2 mg/dL (0.3-1.2); Total Protein 4.2 g/dL (6.2-8.2)
[2020-07-14 12:01] LABS: Free Kappa Lt Chain Qnt, Serum 3.58 mg/dL (0.33-1.94)
== END | disposition home or self-care (01) ==
LOC: LABWHC1 10:06
PROVIDERS: ATTEND Radiology Radiation Oncology
DX: E03.2 Hypothyroidism due to medicaments and other exogenous substances (principal); C90.00 Multiple myeloma not having achieved remission; C50.912 Malignant neoplasm of unspecified site of left female breast; D63.0 Anemia in neoplastic disease; E55.9 Vitamin D deficiency, unspecified; N39.0 Urinary tract infection, site not specified; R53.82 Chronic fatigue, unspecified; Z92.3 Personal history of irradiation; Z17.0 Estrogen receptor positive status [ER+]
CPT/HCPCS: 36415; 80048; 80076; 81001; 83883; 84439; 84443; 84481; 85025; 87086

== ENCOUNTER 2020-11-03 09:58 | Inpatient (IN) | payer MEDICARE ==
[2020-11-03] MEDS ORDERED: DIPH,PERTUS(ACELL)TETVAC-LF 0.5 ML VIAL IM ONE (10:16)
--- NOTE | 2020-11-03 10:20 | ED ---
General Adult HPI - General Chief complaint: Syncope Stated complaint: Syncope Time Seen by Provider: 11/03/20 10:10 Source: patient, EMS, RN notes reviewed Mode of arrival: EMS Limitations: no limitations - History of Present Illness Initial comments: Patient is a pleasant 80-year-old female presenting to the emergency Department with complaints of syncopal episode. Patient was in her kitchen when she suddenly felt woke up on the floor. He should states she did scratch her right hand. Otherwise no injury. Patient does not believe she hit her head however is not certain. Patient does believe that she lost consciousness. Patient believes she has had similar symptoms previously however unclear how many. No chest pain or dyspnea. No neck or back pain. No abdominal pain. No headache. No weakness or confusion. Patient is essentially symptom-free at this point. - Related Data Home Medications Medication Instructions Recorded Confirmed Ergocalciferol [Vitamin D2] 50,000 unit PO Q14D 05/15/17 11/03/20 Atorvastatin [Lipitor] 80 mg PO HS 11/03/20 11/03/20 Famotidine [Pepcid] 20 mg PO DAILY 11/03/20 11/03/20 Fludrocortisone Acetate 0.1 mg PO DAILY 11/03/20 11/03/20 Levothyroxine Sodium 25 mcg PO DAILY 11/03/20 11/03/20 Olopatadine HCl [Pataday] 1 drop BOTH EYES DAILY 11/03/20 11/03/20 Allergies Allergy/AdvReac Type Severity Reaction Status Date / Time adhesive tape Allergy PEELS OFF Verified 11/03/20 11:24 SKIN aspirin Allergy Unknown Verified 11/03/20 11:24 bacitracin Allergy Rash/Hives Verified 11/03/20 11:24 ciprofloxacin [From Cipro] Allergy Unknown Verified 11/03/20 11:24 Sulfa (Sulfonamide Allergy Unknown Verified 11/03/20 11:24 Antibiotics) zinc oxide Allergy Rash/Hives Verified 11/03/20 11:24 codeine AdvReac Hallucinati Verified 11/03/20 11:24 ons NSAIDS (Non-Steroidal AdvReac CAUSED Verified 11/03/20 11:24 Anti-Inflamma BLEEDING ULCER prednisone AdvReac "I WAS Verified 11/03/20 11:24 GOING A MILE A MINUTE" Review of Systems ROS Statement: Those systems with pertinent positive or pertinent negative responses have been documented in the HPI. ROS Other: All systems not noted in ROS Statement are negative. Constitutional: Denies: fever Eyes: Denies: eye pain ENT: Denies: ear pain Respiratory: Denies: cough Cardiovascular: Denies: chest pain Endocrine: Denies: fatigue Gastrointestinal: Denies: abdominal pain Genitourinary: Denies: urgency Musculoskeletal: Denies: back pain Skin: Denies: rash Neurological: Denies: headache, weakness, confusion Past Medical History Past Medical History: Asthma, Cancer, Hyperlipidemia, Osteoarthritis (OA), Rheumatoid Arthritis (RA) Additional Past Medical History / Comment(s): left breast ca, migraines, border line high BP, hernia, hx ulcers, abdominal pain, irregular bowel movements, scrape on rt arm(skin thin on rt arm) History of Any Multi-Drug Resistant Organisms: None Reported Past Surgical History: Breast Surgery, Section, Joint Replacement, Orthopedic Surgery, Tonsillectomy Additional Past Surgical History / Comment(s): d&c, left sided lymph nodes removed- left breast lumpectomy, retina surgery, Yuval knee replacement, left ankle surgery, yuval cataracts,left knee arthroscopy Past Anesthesia/Blood Transfusion Reactions: Motion Sickness Additional Past Anesthesia/Blood Transfusion Reaction / Comment(s): motion sickness as child Past Psychological History: Anxiety, Depression Smoking Status: Never smoker Past Alcohol Use History: None Reported Past Drug Use History: None Reported - Past Family History Mother Family Medical History: Cancer General Exam Limitations: no limitations General appearance: alert, in no apparent distress Head exam: Present: atraumatic, normocephalic Eye exam: Present: normal appearance, PERRL, EOMI ENT exam: Present: normal oropharynx Neck exam: Present: normal inspection. Absent: tenderness Respiratory exam: Present: normal lung sounds bilaterally Cardiovascular Exam: Present: regular rate, normal rhythm Expanded Peripheral pulses: 2+: Radial (R), Radial (L), Posterior Tibialis (R), Posterior Tibialis (L) GI/Abdominal exam: Present: soft. Absent: tenderness Extremities exam: Present: normal inspection, full ROM. Absent: tenderness, pedal edema, calf tenderness Back exam: Present: normal inspection. Absent: tenderness, vertebral tenderness Neurological exam: Present: alert, oriented X3, CN II-XII intact. Absent: motor sensory deficit Expanded Neurological exam: Present: protecting the airway Patient oriented to: Present: person, place, time Speech: Present: fluid speech Motor strength exam: RUE: 5, LUE: 5, RLE: 5, LLE: 5 Eye Response: (4) open spontaneously Motor Response: (6) obeys commands Verbal Response: (5) oriented Psychiatric exam: Present: normal affect, normal mood Skin exam: Present: normal color Course Vital Signs 11/03/20 10:02 Temperature 97.7 F Pulse Rate 80 Respiratory 18 Rate Blood Pressure 141/90 O2 Sat by Pulse 98 Oximetry EKG Findings - EKG Comments: EKG Findings:: Sinus rhythm with a rate of 90. For screening AV block AR 234. QRS 132. QT 402. QTC 41. Left axis. Right bundle branch block. No acute ST change. Medical Decision Making - Medical Decision Making Patient reevaluated and resting comfortably in bed. Patient and family updated on results and plan. Dr. Pablo has been paged for admission. Case was discussed with Dr. Pablo who will admit with nephrology consult. - Lab Data Result diagrams: 11/03/20 10:18 11/03/20 10:18 Lab Results 11/03/20 11/03/20 11/03/20 Range/Units 10:18 10:18 10:18 WBC 5.1 (3.8-10.6) k/uL RBC 3.46 L (3.80-5.40) m/uL Hgb 10.6 L (11.4-16.0) gm/dL Hct 33.0 L (34.0-46.0) % MCV 95.2 (80.0-100.0) fL MCH 30.6 (25.0-35.0) pg MCHC 32.1 (31.0-37.0) g/dL RDW 14.9 (11.5-15.5) % Plt Count 172 (150-450) k/uL MPV 9.3 Neutrophils % 49 % Lymphocytes % 35 % Monocytes % 7 % Eosinophils % 4 % Basophils % 1 % Neutrophils # 2.5 (1.3-7.7) k/uL Lymphocytes # 1.8 (1.0-4.8) k/uL Monocytes # 0.4 (0-1.0) k/uL Eosinophils # 0.2 (0-0.7) k/uL Basophils # 0.1 (0-0.2) k/uL PT 11.0 (9.0-12.0) sec INR 1.0 (<1.2) APTT 20.2 L (22.0-30.0) sec Sodium 130 L (137-145) mmol/L Potassium 4.7 (3.5-5.1) mmol/L Chloride 101 (98-107) mmol/L Carbon Dioxide 27 (22-30) mmol/L Anion Gap 2 mmol/L BUN 52 H (7-17) mg/dL Creatinine 3.53 H (0.52-1.04) mg/dL Est GFR (CKD-EPI)AfAm 14 (>60 ml/min/1.73 sqM) Est GFR (CKD-EPI)NonAf 12 (>60 ml/min/1.73 sqM) Glucose 92 (74-99) mg/dL Calcium 7.8 L (8.4-10.2) mg/dL Magnesium 2.7 H (1.6-2.3) mg/dL Total Bilirubin 0.3 (0.2-1.3) mg/dL AST 43 H (14-36) U/L ALT 33 (4-34) U/L Alkaline Phosphatase 65 (38-126) U/L Troponin I (0.000-0.034) ng/mL Total Protein 4.3 L (6.3-8.2) g/dL Albumin 2.0 L (3.5-5.0) g/dL 11/03/20 Range/Units 10:18 WBC (3.8-10.6) k/uL RBC (3.80-5.40) m/uL Hgb (11.4-16.0) gm/dL Hct (34.0-46.0) % MCV (80.0-100.0) fL MCH (25.0-35.0) pg MCHC (31.0-37.0) g/dL RDW (11.5-15.5) % Plt Count (150-450) k/uL MPV Neutrophils % % Lymphocytes % % Monocytes % % Eosinophils % % Basophils % % Neutrophils # (1.3-7.7) k/uL Lymphocytes # (1.0-4.8) k/uL Monocytes # (0-1.0) k/uL Eosinophils # (0-0.7) k/uL Basophils # (0-0.2) k/uL PT (9.0-12.0) sec INR (<1.2) APTT (22.0-30.0) sec Sodium (137-145) mmol/L Potassium (3.5-5.1) mmol/L Chloride (98-107) mmol/L Carbon Dioxide (22-30) mmol/L Anion Gap mmol/L BUN (7-17) mg/dL Creatinine (0.52-1.04) mg/dL Est GFR (CKD-EPI)AfAm (>60 ml/min/1.73 sqM) Est GFR (CKD-EPI)NonAf (>60 ml/min/1.73 sqM) Glucose (74-99) mg/dL Calcium (8.4-10.2) mg/dL Magnesium (1.6-2.3) mg/dL Total Bilirubin (0.2-1.3) mg/dL AST (14-36) U/L ALT (4-34) U/L Alkaline Phosphatase (38-126) U/L Troponin I 0.027 (0.000-0.034) ng/mL Total Protein (6.3-8.2) g/dL Albumin (3.5-5.0) g/dL - Radiology Data Radiology results: report reviewed (Computed tomography scan of the brain reveals degenerative and remote ischemic change without acute hemorrhage or mass effect.), image reviewed (Chest x-ray shows no acute process) Disposition Clinical Impression: Syncope, Renal insufficiency Disposition: ADMITTED IP TO THIS HOSP Is patient prescribed a controlled substance at d/c from ED?: No Decision Time: 11:25
[2020-11-03 10:31] LABS: Basophils # (A) 0.1 k/uL (0-0.2); Basophils % (A) 1 %; Eosinophils # (A) 0.2 k/uL (0-0.7); Eosinophils % (A) 4 %; HGB 10.6 gm/dL (11.4-16.0); Lymphocytes # (A) 1.8 k/uL (1.0-4.8); Lymphocytes % (A) 35 %; MCH 30.6 pg (25.0-35.0); MCHC 32.1 g/dL (31.0-37.0); MCV 95.2 fL (80.0-100.0); Mean Platelet Volume 9.3; Monocytes # (A) 0.4 k/uL (0-1.0); Monocytes % (A) 7 %; Neutrophils # (A) 2.5 k/uL (1.3-7.7); Neutrophils % (A) 49 %; Platelet Count 172 k/uL (150-450); RBC 3.46 m/uL (3.80-5.40); RDW 14.9 % (11.5-15.5); WBC 5.1 k/uL (3.8-10.6)
[2020-11-03 10:46] LABS: Calcium 7.8 mg/dL (8.4-10.2); Magnesium 2.7 mg/dL (1.6-2.3); Potassium 4.7 mmol/L (3.5-5.1); Total Bilirubin 0.3 mg/dL (0.2-1.3); Total Protein 4.3 g/dL (6.3-8.2)
--- NOTE | 2020-11-03 11:00 | XR ---
EXAMINATION TYPE: XR chest 2V DATE OF EXAM: 11/03/2020 COMPARISON: NONE TECHNIQUE: PA and lateral views submitted. HISTORY: Syncope FINDINGS: The lungs are clear and there is no pneumothorax, pleural effusion, or focal pneumonia. Diffuse ost eopenia and arthropathy of the shoulders. Hyperinflation lungs. Heart size normal no overt failure. H ypertrophic and degenerative change of the spine. Atherosclerotic change aorta. IMPRESSION: 1. No acute process.
--- NOTE | 2020-11-03 11:03 | CT ---
EXAMINATION TYPE: CT brain wo con DATE OF EXAM: 11/03/2020 COMPARISON: 05/15/2017 HISTORY: Syncope/Fall CT DLP: 1090.4 mGycm Automated exposure control for dose reduction was used. FINDINGS: Low attenuation involving the left basal ganglia suggestive of remote infarct. Mild generalized degen erative change of the slightly greater frontal lobe component stable. Dural calcifications are seen. No midline shift or mass effect. No acute hemorrhage. Intracranial atherosclerotic changes noted. Cerebellar tonsils slightly low-lying in position level of foramen magnum. Calvarium intact. Orbits s ymmetric. No significant changes of sinusitis. Sella turcica has a normal appearance. IMPRESSION: DEGENERATIVE AND REMOTE ISCHEMIC CHANGE WITH NO ACUTE HEMORRHAGE OR MASS EFFECT.
[2020-11-03 11:05] LABS: Partial Thromboplastin Time 20.2 sec (22.0-30.0)
[2020-11-03] MEDS ORDERED: NALOXONE 0.4 MG/ML 1 ML VIAL IV PRN (11:25)
[2020-11-03] MEDS: SODIUM CHLORIDE 0.9% 1,000 ML IV SCH (11:49)
--- NOTE | 2020-11-03 16:52 | P.NPCON ---
History of Present Illness - Reason for Consult Consult date: 11/03/20 acute renal failure - Chief Complaint Syncope - History of Present Illness Admitted to the hospital with syncope. She was in the kitchen and suddenly woke up on the floor. CT head was negative for any bleed. She follows with Dr. Saucedo for C daily care. She had biopsy-proven amyloidosis. Her baseline creatinine was 1.5-1.6 in 2015, slowly progressing to 3.1 in October 2020. She also got proteinuria currently nephrotic range about 10 g in October 2020. She was treated with dexamethasone and bortezomib for amyloidosis which was held in due to side effects. Currently not on any treatment. On admission serum creatinine 3.5. She developed hyperkalemia in October 2020 for which she was prescribed fludrocortisone. Denies any nausea vomiting diarrhea. No chest pain or shortness of breath. No recent contrast studies or NSAID use. Review of Systems Constitutional: Reports as per HPI Past Medical History Past Medical History: Asthma, Cancer, Hyperlipidemia, Osteoarthritis (OA), Rheumatoid Arthritis (RA) Additional Past Medical History / Comment(s): left breast ca, migraines, borderline high BP, hernia, hx ulcers, abdominal pain, irregular bowel movements, scrape on rt arm(skin thin on rt arm) History of Any Multi-Drug Resistant Organisms: None Reported Past Surgical History: Breast Surgery, Section, Joint Replacement, Orthopedic Surgery, Tonsillectomy Additional Past Surgical History / Comment(s): d&c, left sided lymph nodes removed- left breast lumpectomy, retina surgery, Yuval knee replacement, left ankle surgery, yuval cataracts,left knee arthroscopy Past Anesthesia/Blood Transfusion Reactions: Motion Sickness Additional Past Anesthesia/Blood Transfusion Reaction / Comment(s): motion sickness as child Past Psychological History: Anxiety, Depression Smoking Status: Never smoker Past Alcohol Use History: None Reported Past Drug Use History: None Reported - Past Family History Mother Family Medical History: Cancer Medications and Allergies Home Medications Medication Instructions Recorded Confirmed Type Ergocalciferol [Vitamin D2] 50,000 unit PO Q14D 05/15/17 11/03/20 History Atorvastatin [Lipitor] 80 mg PO HS 11/03/20 11/03/20 History Famotidine [Pepcid] 20 mg PO DAILY 11/03/20 11/03/20 History Fludrocortisone Acetate 0.1 mg PO DAILY 11/03/20 11/03/20 History Levothyroxine Sodium 25 mcg PO DAILY 11/03/20 11/03/20 History Olopatadine HCl [Pataday] 1 drop BOTH EYES DAILY 11/03/20 11/03/20 History Allergies Allergy/AdvReac Type Severity Reaction Status Date / Time adhesive tape Allergy PEELS OFF Verified 11/03/20 11:24 SKIN aspirin Allergy Unknown Verified 11/03/20 11:24 bacitracin Allergy Rash/Hives Verified 11/03/20 11:24 ciprofloxacin [From Cipro] Allergy Unknown Verified 11/03/20 11:24 Sulfa (Sulfonamide Allergy Unknown Verified 11/03/20 11:24 Antibiotics) zinc oxide Allergy Rash/Hives Verified 11/03/20 11:24 codeine AdvReac Hallucinati Verified 11/03/20 11:24 ons NSAIDS (Non-Steroidal AdvReac CAUSED Verified 11/03/20 11:24 Anti-Inflamma BLEEDING ULCER prednisone AdvReac "I WAS Verified 11/03/20 11:24 GOING A MILE A MINUTE" Physical Exam Vitals: Vital Signs Temp Pulse Resp BP Pulse Ox 11/03/20 12:15 96 18 128/84 98 11/03/20 11:40 107 H 18 132/92 99 11/03/20 10:02 97.7 F 80 18 141/90 98 Intake and Output 11/03/20 11/03/20 11/03/20 06:59 14:59 22:59 Other: Weight 49.895 kg No acute distress S1-S2 heard Lungs clear No edema Results - Lab Results Most recent lab results Calcium 7.8 mg/dL (8.4-10.2) L 11/03/20 10:18 Magnesium 2.7 mg/dL (1.6-2.3) H 11/03/20 10:18 11/03/20 10:18 11/03/20 10:18 Assessment and Plan Assessment: #1 acute kidney injury/progressive chronic kidney disease with underlying amyloidosis. 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 Currently not on treatment. 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 #4 hyperkalemia currently on fludrocortisone. Potassiums better. #5 hypertension with chronic kidney disease #6 metabolic bone disease. Plan: #1 syncope workup by the primary team. #2 check orthostatic vitals, with history of neuropathy #3 stop fludrocortisone, continue with IV fluids at 75 ML's an hour. #4 check urine analysis, protein creatinine ratio. #5 avoid nephrotoxic agents and hypotensive episodes.
[2020-11-04] MEDS: SODIUM CHLORIDE 0.9% 1,000 ML IV SCH ×2 (02:57→18:19)
[2020-11-04 06:05] LABS: Appearance,Urine Clear (Clear); Bacteria,Urine Rare /hpf; Bilirubin,Urine Negative (Negative); Blood,Urine Trace (Negative); Color,Urine Light Yellow; Glucose,Urine (UA) Negative (Negative); Ketones,Urine Negative (Negative); Leukocyte Esterase,Urine Negative (Negative); Nitrite,Urine Negative (Negative); Protein,Urine 3+ (Negative); RBC,Urine <1 /hpf (0-5); Specific Gravity,Urine 1.008 (1.001-1.035); Squamous Epithelial Cell,Urine <1 /hpf (0-4); Urobilinogen,Urine <2.0 mg/dL (<2.0); WBC,Urine 3 /hpf (0-5)
[2020-11-04 08:55] LABS: Glucose,Whole Blood 90 mg/dL (75-99)
[2020-11-04 09:26] LABS: African American GFR (CKD) 13.3 (60.0-200.0); Anion Gap 5.7 mmol/L (4.00-12.00); BUN/Creat Ratio 14.72 Ratio (12.00-20.00); Calcium 7.7 mg/dL (8.7-10.3); Carbon Dioxide 25.3 mmol/L (21.6-31.8); Non-African American GFR(CKD) 11.5 (60.0-200.0)
--- NOTE | 2020-11-04 14:43 | PN ---
PROGRESS NOTE Patient is seen for followup for chronic kidney disease and acute kidney injury. The patient has underlying CKD with baseline creatinine about 1.7-2 mg/dL. Creatinine was 2.2 in on 07/12/2020. The patient was admitted to the hospital with syncope. Her creatinine was at 3.5 on initial admission. Blood pressures are slightly on the lower side, although no significant hypotension with systolic less than 100 documented at this point. The patient is maintained on IV fluids. She has been voiding. Patient was not on any nephrotoxic medications prior to admission. PHYSICAL EXAMINATION: On examination today, blood pressure was 115/77, heart rate 81 per minute. Patient is afebrile. EXAMINATION OF THE HEART: S1, S2. EXAMINATION OF THE LUNGS: Bilateral breath sounds are heard. Abdomen is soft, nontender. Examination of lower extremities shows no significant edema. ELEVATOR CONDUCTOR exam grossly intact. LABS: Labs show sodium 132, potassium 5.0, BUN 53, creatinine 3.6. UA shows 3+ protein, trace blood. ASSESSMENT: 1. Acute kidney injury most likely prerenal, maintained on IV fluids. No significant improvement in 24 hours yet. Rule out urine retention. 2. Chronic kidney disease with history of biopsy-proven amyloidosis, status post treatment in 2017. Currently not on any treatment. 3. The patient does have nephrotic range proteinuria. 4. Syncope, currently being worked up. A CT of the brain was negative for acute findings. Blood pressure was not low, although I do not have a blood pressure on initial presentation when EMS arrived. PLAN: Continue with IV fluids. Repeat labs in a.m. Check bladder scan. Rule out urine retention. MMODL / IJN: [id number] /
--- NOTE | 2020-11-04 18:38 | HP ---
HISTORY AND PHYSICAL CHIEF COMPLAINT: Syncope. HISTORY OF PRESENT ILLNESS: This is another admission for this 80-year-old white female. The day before her coming to the hospital we had a telehealth discussion with her, whereby she indicated her blood pressure had been getting quite low from time to time. She described it as getting down to 70 or 80 systolically. The next day she apparently passed out in her kitchen and was brought to the emergency room. At the time she passed out she was standing up. She had no prodrome. She had no dizziness, aura, chest pain, focal neurologic symptoms, etc. She woke up and found herself on the floor and was able to summon EMS. When she awoke she had no focal neurologic signs or symptoms, chest pain, abdominal pain, loss of sphincter control, etc. In the emergency room she was completely normal. REVIEW OF SYSTEMS: She denied any other complaints or symptoms. She had no chills, fever, nausea, vomiting, confusion, etc. Past medical history, family history, and personal and social histories are significant in that she has amyloidosis, which is probably causing slow deterioration in her kidney function, for which she also sees Nephrology. She has been having a little bit more shortness of breath lately and there has been concern that she may be developing congestive heart failure. She has had a prior malignancy in the breast, for which she was treated with a lumpectomy, but she refused radiation therapy. CURRENT MEDICATIONS: Current medications include: 1. Levothyroxine 0.025 mg once a day. 2. Atorvastatin 80 mg once a day. 3. Fludrocortisone 0.1 mg once a day. 4. Pepcid 20 mg once a day. 5. ProAir inhaler p.r.n. 6. Vitamin D 2000 units a day. 7. Olopatadine eye drops. 8. Dorzolamide eye drops. 9. Symbicort. 10.Systane ophthalmic solution. ALLERGIES: QUINOLONES, XANAX, BACITRACIN, PREDNISONE, NSAIDS, SULFA, CODEINE AND ASPIRIN. PHYSICAL EXAMINATION: Blood pressure is 100/60 with a pulse of 83 and regular, respirations of 25, and she is afebrile. In general she appeared to be slightly pale and in no acute distress. Skin color was normal otherwise. Lymph nodes were not enlarged. Head, ears, eyes, nose, mouth and throat were normal. Neck veins were not distended. Thyroid was not enlarged. Carotids were normal. The chest was clear. Cardiac exam demonstrated normal sinus rhythm and no murmurs or extra sounds. The abdomen was soft and nontender without any visceromegaly or masses. Bowel sounds were present. Extremities were normal. She did have mild edema of the ankles. Neurologically she was intact. Cranial nerves were intact. Sensory and motor exam was normal. She is admitted to the hospital with diagnoses: 1. Syncope. 2. Hypotension. 3. Amyloidosis. 4. Chronic renal failure. 5. History of carcinoma of the left breast. PLAN: 1. Bedrest. 2. IV fluids. 3. Rehydrate. 4. Consult with Nephrology and Cardiology. MMODL / IJN: [id number] /
--- NOTE | 2020-11-04 18:57 | PN ---
PROGRESS NOTE DATE OF SERVICE: 11/04/2020 CHIEF COMPLAINT: Syncope. HISTORY OF PRESENT ILLNESS: This lady has been stable during the night, with no chest pain or any other abnormalities. She has had no arrhythmias. PHYSICAL EXAMINATION: Her chest is clear. Cardiac exam is normal. Abdomen is soft, nontender. IMPRESSION: Syncope. PLAN: Continue with further workup and await recommendations from Cardiology and Nephrology. MMODL / IJN: [id number] /
[2020-11-04] MEDS: DORZOLAMIDE HCL 2% DROPS 10 ML BTL RIGHT EYE SCH (20:46)
[2020-11-04] MEDS: ATORVASTATIN 40 MG TAB PO SCH (20:46)
[2020-11-04] MEDS: traZODone HCL 50 MG TAB PO SCH (21:22)
[2020-11-05] MEDS: SODIUM CHLORIDE 0.9% 1,000 ML IV SCH ×2 (03:44→18:12)
[2020-11-05] MEDS: LEVOTHYROXINE 25 MCG TAB PO SCH (05:44)
[2020-11-05] MEDS: FAMOTIDINE 20 MG TAB PO SCH (08:02)
[2020-11-05] MEDS: FLUDROCORTISONE 0.1 MG TAB PO SCH (08:02)
[2020-11-05] MEDS: KETOTIFEN 0.025% OPHTH DROPS 5 ML BTL BOTH EYES SCH (08:05)
[2020-11-05] MEDS: DORZOLAMIDE HCL 2% DROPS 10 ML BTL RIGHT EYE SCH ×2 (08:05→22:45)
[2020-11-05 09:04] LABS: African American GFR (CKD) 15 (>60 ml/min/1.73 sqM); Anion Gap 3 mmol/L; Blood Urea Nitrogen 49 mg/dL (7-17); Calcium 7.6 mg/dL (8.4-10.2); Carbon Dioxide 22 mmol/L (22-30); Chloride 104 mmol/L (98-107); Glucose 122 mg/dL (74-99); Non-African American GFR(CKD) 13 (>60 ml/min/1.73 sqM); Potassium 4.8 mmol/L (3.5-5.1); Sodium 129 mmol/L (137-145)
--- NOTE | 2020-11-05 10:41 | P.CRDCN ---
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 She follows in the office with Dr Cee. We have been asked to see in consultation for syncope. She states over the previous couple of months she has had frequent episodes of syncope at home. Most recently on Wednesday she was up in her kitchen when she started to feel acutely dizzy and fell to the floor striking her right knee and hand. She did pass out for unknown amount of time. She denies feeling chest pain, shortness of breath, palpitations, nausea or diaphoresis prior to or after waking up. She denies prior history of arrhythmia or seizures. She states last night while being assisted back to the bathroom by the nurse she had a similar type episode however she did not actually pass out she just felt dizzy. The nurse was able to stabilize her and get her back to bed. Telemetry tracings throughout that episode were unremarkable. DIAGNOSTICS EKG reveals sinus mechanism with heart rate of 90 with first-degree AV block, right bundle branch block and left anterior fascicular block with nonspecific ST abnormalities noted. Telemetry tracings indicate sinus mechanism with no significant pauses or arrhythmia. Chest xray negative for any acute cardiopulmonary process. CT of the brain reveals low attenuation involving the left basal ganglia suggestive of remote infarct. Laboratory reviewed, WBC 5.1, hemoglobin 10.6, platelets 172, sodium 129, potassium 4.8, creatinine 3.22, cardiac enzymes negative 3, magnesium 2.7. Current cardiac medications include Orva statin 40 mg at bedtime. REVIEW OF SYSTEMS At the time of my exam: CONSTITUTIONAL: Denies fever or chills. CARDIOVASCULAR: Denies chest pain, shortness of breath, orthopnea, PND or palpitations. RESPIRATORY: Denies cough. GASTROINTESTINAL: Denies abdominal pain, diarrhea, constipation, nausea or vomiting. MUSCULOSKELETAL: Denies myalgias. NEUROLOGIC: Denies numbness, tingling, headacbe or weakness. ENDOCRINE: Denies fatigue, weight change, polydipsia or polyurina. GENITOURINARY: Denies burning, hematuria or urgency with micturation. HEMATOLOGIC: Denies history of anemia or bleeding. PHYSICAL EXAMINATION Blood pressure 133/68 heart rate 84 afebrile and maintaining oxygen saturation on room air. CONSTITUTIONAL: No apparent distress. HEENT: Head is normocephalic. Pupils are equal, round. Sclerae anicteric. Mucous membranes of the mouth are moist. No JVD. No carotid bruit. CHEST EXAMINATION: Lungs are clear to auscultation. No chest wall tenderness is noted on palpation or with deep breathing. HEART EXAMINATION: Regular rate and rhythm. S1, S2 heard. No murmurs, gallops or rub. ABDOMEN: Soft, nontender. Positive bowel sounds. EXTREMITIES: 2+ peripheral pulses, no lower extremity edema and no calf tenderness. NEUROLOGIC EXAMINATION: Patient is awake, alert and oriented x3. 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 Ongoing telemetry monitoring. She may require pacemaker implantation. Check for orthostatic changes. Repeat magnesium level and check TSH. Obtain 2D echocardiogram and doppler study to assess cardiac structure and function. Neurology is following. Further recommendations to follow based on clinical course. Thank you kindly for this consultation. Nurse Practitioner note has been reviewed, I agree with a documented findings and plan of care. Patient was seen and examined. Past Medical History Past Medical History: Asthma, Cancer, Hyperlipidemia, Osteoarthritis (OA), Rheumatoid Arthritis (RA) Additional Past Medical History / Comment(s): 2016 L breast cancer with lumpectomy, 2016 amloidosis with chemotherapy and numbness/tingling bilateral hands/feet from chemo, bilateral leg weakness especially R leg, havfever, sinus problems, generalized arthritis, RA also affects eyes soft tissue, migraines, hypothyroid History of Any Multi-Drug Resistant Organisms: None Reported Past Surgical History: Breast Surgery, Section, Joint Replacement, Orthopedic Surgery, Tonsillectomy Additional Past Surgical History / Comment(s): Bilateral breast biopsies, L breast lumpectomy, bone marrow aspiration, renal biopsy, multiple D&Cs, R eye retinal surgery, bilateral cataract removals, bilateral blepharoplasties, colonoscopy, L ankle ORIF, L knee arthroscopy, bilateral total knee arth roplasties. Past Anesthesia/Blood Transfusion Reactions: Motion Sickness Additional Past Anesthesia/Blood Transfusion Reaction / Comment(s): motion si ckness as child Smoking Status: Never smoker - Past Family History Mother Family Medical History: Cancer Additional Family Medical History / Comment(s): Mother had breast cancer. Father Family Medical History: Coronary Artery Disease (CAD) Medications and Allergies Home Medications Medication Instructions Recorded Confirmed Type Ergocalciferol [Vitamin D2] 50,000 unit PO Q14D 05/15/17 11/03/20 History Atorvastatin [Lipitor] 40 mg PO HS 11/03/20 11/04/20 History Famotidine [Pepcid] 20 mg PO DAILY 11/03/20 11/03/20 History Fludrocortisone Acetate 0.1 mg PO DAILY 11/03/20 11/03/20 History Levothyroxine Sodium 25 mcg PO DAILY 11/03/20 11/03/20 History Olopatadine HCl [Pataday] 1 drop BOTH EYES DAILY 11/03/20 11/03/20 History Dorzolamide 2% [Trusopt 2%] 1 drops RIGHT EYE BID 11/04/20 11/04/20 History Allergies Allergy/AdvReac Type Severity Reaction Status Date / Time adhesive tape Allergy PEELS OFF Verified 11/03/20 11:24 SKIN aspirin Allergy Unknown Verified 11/03/20 11:24 bacitracin Allergy Rash/Hives Verified 11/03/20 11:24 ciprofloxacin [From Cipro] Allergy Unknown Verified 11/03/20 11:24 Sulfa (Sulfonamide Allergy Unknown Verified 11/03/20 11:24 Antibiotics) zinc oxide Allergy Rash/Hives Verified 11/03/20 11:24 codeine AdvReac Hallucinati Verified 11/03/20 11:24 ons NSAIDS (Non-Steroidal AdvReac CAUSED Verified 11/03/20 11:24 Anti-Inflamma BLEEDING ULCER prednisone AdvReac "I WAS Verified 11/03/20 11:24 GOING A MILE A MINUTE" Physical Exam Vitals: Vital Signs Temp Pulse Pulse Resp BP BP Pulse Ox 11/05/20 07:00 97.9 F 84 16 133/68 98 11/05/20 02:00 100 15 11/05/20 00:52 97.9 F 100 15 105/61 97 11/04/20 19:10 16 11/04/20 19:09 97.5 F L 98 16 123/67 98 11/04/20 14:00 18 11/04/20 12:50 97.6 F 100 18 133/88 98 Intake and Output 11/04/20 11/05/20 11/05/20 22:59 06:59 14:59 Intake Total 540 200 Balance 540 200 Intake: Oral 540 200 Other: Voiding Method Toilet Toilet # Voids 2 1 Results 11/03/20 10:18 11/05/20 08:30 Comprehensive Metabolic Panel 11/05/20 Range/Units 08:30 Sodium 129 L (137-145) mmol/L Potassium 4.8 (3.5-5.1) mmol/L Chloride 104 (98-107) mmol/L Carbon Dioxide 22 (22-30) mmol/L BUN 49 H (7-17) mg/dL Creatinine 3.22 H (0.52-1.04) mg/dL Glucose 122 H (74-99) mg/dL Calcium 7.6 L (8.4-10.2) mg/dL Current Medications Generic Name Dose Route Start Last Admin Trade Name Freq PRN Reason Stop Dose Admin Atorvastatin Calcium 40 mg 11/04/20 21:00 11/04/20 20:46 Atorvastatin 40 Mg Tab PO 40 mg HS KAITLIN Administration Dorzolamide HCl 1 drops 11/04/20 21:00 11/05/20 08:05 Dorzolamide Hcl 2% Drops 10 Ml Btl RIGHT EYE 1 drops BID KAITLIN Administration Famotidine 20 mg 11/05/20 09:00 11/05/20 08:02 Famotidine 20 Mg Tab PO 20 mg DAILY KAITLIN Administration Fludrocortisone Acetate 0.1 mg 11/05/20 09:00 11/05/20 08:02 Fludrocortisone 0.1 Mg Tab PO 0.1 mg DAILY KAITLIN Administration Sodium Chloride 1,000 mls @ 75 mls/hr 11/03/20 11:30 11/05/20 03:44 Saline 0.9% IV 75 mls/hr .[id number] KAITLIN Administration Ketotifen Fumarate 1 drops 11/05/20 09:00 11/05/20 08:05 Ketotifen 0.025% Ophth Drops 5 Ml Btl BOTH EYES 1 drops DAILY KAITLIN Administration Levothyroxine Sodium 25 mcg 11/05/20 06:30 11/05/20 05:44 Levothyroxine 25 Mcg Tab PO 25 mcg DAILY@0630 KAITLIN Administration Naloxone HCl 0.2 mg 11/03/20 11:25 Naloxone 0.4 Mg/Ml 1 Ml Vial IV Q2M PRN Opioid Reversal Trazodone HCl 50 mg 11/04/20 21:15 11/04/20 21:22 Trazodone Hcl 50 Mg Tab PO 50 mg HS KAITLIN Administration Intake and Output 11/04/20 11/05/20 11/05/20 22:59 06:59 14:59 Intake Total 540 200 Balance 540 200 Intake: Oral 540 200 Other: Voiding Method Toilet Toilet # Voids 2 1 11/03/20 10:18 11/05/20 08:30
[2020-11-05 11:07] LABS: Magnesium 2.3 mg/dL (1.6-2.3)
--- NOTE | 2020-11-05 12:23 | P.CNNES ---
History of Present Illness Consult date: 11/05/20 Requesting physician: Que Pablo Reason for Consult: Syncope History of Present Illness: Patient is a 80-year-old female came to the hospital by ambulance on 11/03/2020 for syncopal episode. Patient states she has been having these syncopal episodes for last 3-5 years. There could be months apart between she has these episodes. However this seems to be getting worse, occurring more often. Patient states that on Wednesday, 2 days ago she was in usual state of health, walking with her walker with tray, trying to get glass to drink cranberry juice when she felt it coming on. She felt a sensation in the head like something is closing on the top of head and she has a feeling that if she would not sit, will fall on the floor. She tried to sit, but did not make it and went on the floor. She does not know if she passed out, but she thinks may have been out for just a few seconds. If she did, was not too long. She did not have any tongue bite, loss of control of urine, or any seizure-like activity. She came to the ER. EMS flow sheet not available in the chart. Patient's vitals on arrival blood pressure 141/90, pulse rate 80, temperature 97.7. Computed tomography scan of head showed degenerative and remote ischemic changes with no acute hemorrhage or mass effect. Chest x-ray showed no acute process. EKG shows sinus rhythm with sinus arrhythmia with first-degree AV block. Right bundle branch block. Left anterior fascicular block. Blood test shows normal WBC hemoglobin 10.6, platelets 172. PT is normal INR 1.0. Sodium 1:30 potassium 4.7, BUN 52, creatinine 3.53. Patient does have a history of mild renal insufficiency, but is not acutely worse. AST is mildly elevated 43, ALT 33. Troponins negative. UA negative. Influenza screen negative, RSV negative, SARS Cov-2 PCR negative Patient takes Florinef 0.1 mg, levothyroxine, Lipitor 40 mg and vitamin D. On her medication list separately, it appears that patient was also on midodrine in the past and was doing better. Somehow her dose of midodrine was decreased to only as needed if she has blood pressure less than 100. Patient has history of amyloidosis that was diagnosed after she has unexplained weight loss. She was given chemotherapy after which she has developed bilateral leg weakness, right more than left. She uses a walker. The neuropathy is affecting her hands and feet. Review of Systems As above in detail. All other review of systems noncontributory. Denies any chest pain, shortness of breath, wheezing or cough. Denies any bowel pain, nausea vomiting diarrhea. Patient has peripheral neuropathy. Denies loss of control of urine. No bowel incontinence. Past Medical History Past Medical History: Asthma, Cancer, Hyperlipidemia, Osteoarthritis (OA), Rheumatoid Arthritis (RA) Additional Past Medical History / Comment(s): 2015 L breast cancer with lumpectomy, 2016 amloidosis with chemotherapy and numbness/tingling bilateral hands/feet from chemo, bilateral leg weakness especially R leg, havfever, sinus problems, generalized arthritis, RA also affects eyes soft tissue, migraines, hypothyroid History of Any Multi-Drug Resistant Organisms: None Reported Past Surgical History: Breast Surgery, Section, Joint Replacement, Orthopedic Surgery, Tonsillectomy Additional Past Surgical History / Comment(s): Bilateral breast biopsies, L breast lumpectomy, bone marrow aspiration, renal biopsy, multiple D&Cs, R eye retinal surgery, bilateral cataract removals, bilateral blepharoplasties, colonoscopy, L ankle ORIF, L knee arthroscopy, bilateral total knee arthroplasties. Past Anesthesia/Blood Transfusion Reactions: Motion Sickness Additional Past Anesthesia/Blood Transfusion Reaction / Comment(s): motion sickness as child Smoking Status: Never smoker - Past Family History Mother Family Medical History: Cancer Additional Family Medical History / Comment(s): Mother had breast cancer. Father Family Medical History: Coronary Artery Disease (CAD) Medications and Allergies Home Medications Medication Instructions Recorded Confirmed Type Ergocalciferol [Vitamin D2] 50,000 unit PO Q14D 05/15/17 11/03/20 History Atorvastatin [Lipitor] 40 mg PO HS 11/03/20 11/04/20 History Famotidine [Pepcid] 20 mg PO DAILY 11/03/20 11/03/20 History Fludrocortisone Acetate 0.1 mg PO DAILY 11/03/20 11/03/20 History Levothyroxine Sodium 25 mcg PO DAILY 11/03/20 11/03/20 History Olopatadine HCl [Pataday] 1 drop BOTH EYES DAILY 11/03/20 11/03/20 History Dorzolamide 2% [Trusopt 2%] 1 drops RIGHT EYE BID 11/04/20 11/04/20 History Allergies Allergy/AdvReac Type Severity Reaction Status Date / Time adhesive tape Allergy PEELS OFF Verified 11/03/20 11:24 SKIN aspirin Allergy Unknown Verified 11/03/20 11:24 bacitracin Allergy Rash/Hives Verified 11/03/20 11:24 ciprofloxacin [From Cipro] Allergy Unknown Verified 11/03/20 11:24 Sulfa (Sulfonamide Allergy Unknown Verified 11/03/20 11:24 Antibiotics) zinc oxide Allergy Rash/Hives Verified 11/03/20 11:24 codeine AdvReac Hallucinati Verified 11/03/20 11:24 ons NSAIDS (Non-Steroidal AdvReac CAUSED Verified 11/03/20 11:24 Anti-Inflamma BLEEDING ULCER prednisone AdvReac "I WAS Verified 11/03/20 11:24 GOING A MILE A MINUTE" Physical Examination - Vital Signs Vital Signs: Vital Signs Temp Pulse Pulse Resp BP BP Pulse Ox 11/05/20 07:00 97.9 F 84 16 133/68 98 11/05/20 02:00 100 15 11/05/20 00:52 97.9 F 100 15 105/61 97 11/04/20 19:10 16 11/04/20 19:09 97.5 F L 98 16 123/67 98 11/04/20 14:00 18 11/04/20 12:50 97.6 F 100 18 133/88 98 Intake and Output 11/04/20 11/05/20 11/05/20 22:59 06:59 14:59 Intake Total 540 Balance 540 Intake: Oral 540 Other: Voiding Method Toilet Toilet # Voids 2 1 Patient is an elderly female, in no acute distress. Patient is alert awake oriented to time place and person. Speech and language functions are normal. Attention, concentration and fund of knowledge is adequa te. On cranial examination, pupils are round and reacting to light, visual lockwood are full on confrontation, extraocular muscles are intact with no nystagmus. Face is symmetric, tongue protrudes to the midline. Palatal elevation and sensation normal, hearing and shoulder shrug normal, facial sensation normal. Shoulder shrug normal. On muscle strength testing, there is no pronator drift and the strength is normal in arms except interossei which is 5-bilaterally. In the lower extremities, Hip flexion 4, knees are 5, ankles 2-3 on the right, 4 on the left. Deep tendon reflexes are trace at the biceps, 0 brachioradialis, 0 at the knees and 0 at the ankles and plantars are flat. Sensory to touch is equal with no neglect. Cerebellar function showed no ataxia for [id number] testing. No dysdiadochokinesia. Tone and bulk of muscles normal. Gait deferred. On general examination, there is no carotid bruit or murmur, S1-S2 audible. Abdomen is soft nontender. Chest is clear. Peripheral pulses are present. No edema. Results Patient is an elderly female, very pleasant, in no acute distress. Patient is alert awake oriented to time place and person. Speech and language functions are normal. Attention, concentration and fund of knowledge is adequate. On cranial examination, pupils are round and reacting to light, visual lockwood are full on confrontation, extraocular muscles are intact with no nystagmus. Face is symmetric, tongue protrudes to the midline. Palatal elevation and sensation normal, hearing and shoulder shrug normal, facial sensation normal. Shoulder shrug normal. On muscle strength testing, there is no pronator drift and the strength is normal in arms proximally in the shoulder biceps and triceps. [place] is 5-, interossei 5-. Hip flexion is 4+, knee extension 5, ankle dorsiflexion 3 right/4+ left. Deep tendon reflexes are trace at the biceps, but absent elsewhere and big radialis, knees and ankles. Sensory to touch is equal with no neglect. Cerebellar function showed no ataxia for [id number] testing. No dysdiadochokinesia. Tone and bulk of muscles normal. Gait deferred. On general examination, there is no carotid bruit or murmur, S1-S2 audible. Abdomen is soft nontender. Chest is clear. Peripheral pulses are present. No edema. - Laboratory Findings CBC and BMP: 11/03/20 10:18 11/05/20 08:30 Abnormal Lab Findings: Abnormal Labs 11/03/20 11/03/20 11/03/20 10:18 10:18 10:18 RBC 3.46 L Hgb 10.6 L Hct 33.0 L APTT 20.2 L Sodium 130 L BUN 52 H Creatinine 3.53 H Est GFR (CKD-EPI)AfAm Est GFR (CKD-EPI)NonAf Calcium 7.8 L Magnesium 2.7 H AST 43 H Total Protein 4.3 L Albumin 2.0 L Urine Protein Urine Blood Urine Bacteria 11/04/20 11/04/20 05:35 05:52 RBC Hgb Hct APTT Sodium 132 L BUN 53.0 H Creatinine 3.6 H Est GFR (CKD-EPI)AfAm 13.3 L Est GFR (CKD-EPI)NonAf 11.5 L Calcium 7.7 L Magnesium AST Total Protein Albumin Urine Protein 3+ H Urine Blood Trace H Urine Bacteria Rare H Assessment and Plan Assessment: * Recurrent syncopal spells, likely orthostatic. Patient had orthostatics checked, which was significantly abnormal. Patient has history of amyloidosis, which can produce autonomic dysfunction with orthostatic hypotension as well. * Rheumatoid arthritis * History of amyloidosis, with history of chemotherapy with subsequent development of peripheral neuropathy. * History of bilateral total knee arthroplasty. Plan: * Orthostatics were checked and her supine blood pressure was 137/89, with pulse of 85. Sitting up was 106/68 and pulse of 120. Standing up was 98/65 with pulse of 122. * Suggest starting midodrine 10 mg 3 times a day if okay from a cardiology standpoint. Patient is already on Florinef 0.1 mg every morning. If symptoms persist, patient could be a candidate for Northera. * Carotid Doppler was performed, which revealed mild atherosclerotic changes bilaterally with no hemodynamic significant stenosis. Antegrade flow in both vertebral arteries. * Telemetry monitoring showing heart rate of 91 with normal sinus rhythm. Cardiology also on the case.
--- NOTE | 2020-11-05 13:07 | US ---
EXAMINATION TYPE: US carotid duplex BILAT DATE OF EXAM: 11/05/2020 COMPARISON: NONE CLINICAL HISTORY: Syncope. EXAM MEASUREMENTS: RIGHT: Peak Systolic Velocity (PSV) cm/sec ----- Right CCA: 61.1 ----- Right ICA: 40.2 ----- Right ECA: 74.5 ICA/CCA ratio: 0.65 RIGHT: End Diastole cm/sec ----- Right CCA: 18.0 ----- Right ICA: 15.5 ----- Right ECA: 8.2 LEFT: Peak Systolic Velocity (PSV) cm/sec ----- Left CCA: 65.2 ----- Left ICA: 70.5 ----- Left ECA: 90.7 ICA/CCA ratio: 1.07 LEFT: End Diastole cm/sec ----- Left CCA: 19.3 ----- Left ICA: 24.6 ----- Left ECA: 10.9 VERTEBRALS (direction of flow): Right Vertebral: Antegrade Left Vertebral: Antegrade Rhythm: Normal Mild atherosclerotic changes with no significant velocity increases seen bilaterally. IMPRESSION: Mild sclerotic changes bilaterally, no hemodynamic significant stenoses in either internet marketing strategist al carotid artery. Criteria for Assigning % of Stenosis / Diameter reduction (Estimation based on the indirect measurements of the internal carotid artery velocities (ICA PSV). 1. Normal (no stenosis)=ICA PSV < 125 cm/s: ratio < 2.0: ICA EDV<40 cm/s. 2. Less than 50% stenosis=ICA PSV < 125 cm/s: ratio < 2.0: ICA EDV<40 cm/s. 3. 50 to 69% stenosis=ICA PSV of 125 to 230 cm/s: ration 2.0 ? 4.0: ICA EDV 40-100 cm/s. 4. Greater than 70% stenosis to near occlusion= ICA PSV > 230 cm/s: ratio > 4.0: ICA EDV > 100 cm/s. 5. Near occlusion= ICA PSV velocities may be low or undetectable: variable ratio and ICA EDV. 6. Total occlusion=unable to detect flow.
[2020-11-05 13:29] VITALS: BMI 21.4
--- NOTE | 2020-11-05 15:53 | PN ---
PROGRESS NOTE Patient is seen for followup for chronic kidney disease. She was admitted to the hospital with syncope. She is currently maintained on IV fluids. Serum creatinine was noted to be 3.5 and 3.6 mg/dL on admission, which is up from her usual baseline of about 2 to 2.2 mg/dL. Patient is currently maintained on IV fluids. Overall she states she is feeling better. She is scheduled for further cardiac evaluation for episodes of complete heart block. PHYSICAL EXAMINATION: On examination today, blood pressure is 133/68, heart rate 84 per minute. Patient is afebrile. She does have evidence of orthostatic hypotension. EXAMINATION OF THE HEART: S1 and S2. EXAMINATION OF LUNGS: Bilateral breath sounds are heard. ABDOMEN: Soft, non-tender. Examination of lower extremities shows no evidence of edema. ASSORTER exam is grossly intact. LABS: Sodium 129, potassium 4.8, chloride 104, BUN 49, creatinine 3.2 mg/dL. ASSESSMENT: 1. Acute kidney injury, mostly prerenal, associated with hypoperfusion and possible hypotension as well. Patient has had episodes of heart block which most likely contributed to her syncope. Her creatinine is slightly improved. She is maintained on IV fluids, which I will continue for now. No nephrotoxic agents on board. Blood pressure is currently stable, although she does have orthostatic hypotension. 2. Hypothyroidism. 3. Syncope, mostly related to heart block and orthostatic hypotension. 4. Chronic kidney disease, stage 4, with history of biopsy-proven amyloidosis; baseline creatinine 1.7 to 2 mg/dL. PLAN: Repeat labs in a.m. Continue IV fluids. Check cortisol level. MMODL / IJN: [id number] /
--- NOTE | 2020-11-05 19:35 | PN ---
PROGRESS NOTE DATE OF SERVICE: 11/05/2020 CHIEF COMPLAINT: Syncope. HISTORY OF PRESENT ILLNESS: This lady seems to be stable, but she is complaining of being dizzy. She has had no headache, difficulties with her vital signs. Blood pressure is adequate and it is not low any longer. Renal function is not good, with a BUN of 49 and creatinine of 3.2. PHYSICAL EXAMINATION: She is slightly pale. Chest is clear. Cardiac exam is normal. Abdomen is soft, nontender. IMPRESSION: 1. Syncope, etiology unknown. 2. Dizziness or vertigo, etiology unknown. 3. Episode of hypotension. 4. Chronic renal failure. PLAN: Await further evaluation and reports from Cardiology and Nephrology as well as Neurology. MMODL / IJN: [id number] /
[2020-11-05 21:17] LABS: Urine Creatinine 22.8 mg/dL
[2020-11-05] MEDS: traZODone HCL 50 MG TAB PO SCH (22:20)
[2020-11-05] MEDS: ATORVASTATIN 40 MG TAB PO SCH (22:20)
[2020-11-06] MEDS: SODIUM CHLORIDE 0.9% 1,000 ML IV SCH ×2 (04:43→21:23)
[2020-11-06] MEDS: LEVOTHYROXINE 25 MCG TAB PO SCH (06:00)
[2020-11-06] MEDS: FAMOTIDINE 20 MG TAB PO SCH (07:42)
[2020-11-06] MEDS: DORZOLAMIDE HCL 2% DROPS 10 ML BTL RIGHT EYE SCH ×2 (07:42→21:23)
[2020-11-06] MEDS: KETOTIFEN 0.025% OPHTH DROPS 5 ML BTL BOTH EYES SCH (07:42)
[2020-11-06] MEDS: FLUDROCORTISONE 0.1 MG TAB PO SCH (07:42)
[2020-11-06] MEDS: MIDODRINE 5 MG TAB PO SCH ×3 (08:58→17:53)
--- NOTE | 2020-11-06 10:09 | P.PN ---
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 She follows in the office with Dr Cee. We have been asked to see in consultation for syncope. She states over the previous couple of months she has had frequent episodes of syncope at home. Most recently on Wednesday she was up in her kitchen when she started to feel ac utely dizzy and fell to the floor striking her right knee and hand. She did pass out for unknown amount of time. She denies feeling chest pain, shortness of breath, palpitations, nausea or diaphoresis prior to or after waking up. She denies prior history of arrhythmia or seizures. She states last night while being assisted back to the bathroom by the nurse she had a similar type episode however she did not actually pass out she just felt dizzy. The nurse was able to stabilize her and get her back to bed. Telemetry tracings throughout that episode were unremarkable. EKG reveals sinus mechanism with heart rate of 90 with first-degree AV block, right bundle branch block and left anterior fascicular block with nonspecific ST abnormalities noted. Telemetry tracings indicate sinus mechanism with no significant pauses or arrhythmia. Chest xray negative for any acute cardiopulmonary process. CT of the brain reveals low attenuation involving the left basal ganglia suggestive of remote infarct. Laboratory reviewed, WBC 5.1, hemoglobin 10.6, platelets 172, sodium 129, potassium 4.8, creatinine 3.22, cardiac enzymes negative 3, magnesium 2.7. Current cardiac medications include Orva statin 40 mg at bedtime. 11/06/2020 Patient examined this morning at the bedside. Patient denies chest pain or pressure. She denies shortness of breath. She reports feeling "woozy" this morning. She reports dizziness when she gets out of bed or changes positions quickly. Orthostatic blood pressures obtained this morning reveal a blood pressure supine 131/77, blood pressure sitting 97/62, and blood pressure standing 85/52. Patient gives further history of having approximately 5 episodes of syncope over the past few months. PHYSICAL EXAM: VITAL SIGNS: Reviewed. GENERAL: Well-developed in no acute distress. NECK: Supple. No JVD or thyromegaly LUNGS: Respirations even and unlabored. Lungs essentially clear to auscultation bilaterally. HEART: Regular rate and rhythm. S1 and S2 heard. EXTREMITIES: Normal range of motion. No clubbing or cyanosis. Peripheral pul ses intact. No lower extremity edema ASSESSMENT: Trifascicular block Syncope, recurrent Orthostatic hypotension Possibly left basal ganglia remote infarct Chronic kidney disease secondary to amyloidosis Hyponatremia Dyslipidemia History of breast cancer status post lumpectomy PLAN: Obtain 2D echo to assess cardiac structure and function Continue telemetry monitoring Begin Midodrine 10mg TID Monitor orthostatic blood pressures daily Recommend permanent pacemaker insertion. Will speak with Dr. Wu regarding timing of procedure. Further recommendations pending patient course Nurse practitioner note has been reviewed by physician. Signing provider agrees with the documented findings, assessment, and plan of care. Objective - Vital Signs Vital signs: Vital Signs Temp 97.7 F 11/06/20 07:00 Pulse 109 H 11/06/20 07:26 Resp 18 11/06/20 07:00 BP 131/77 11/06/20 07:26 Pulse Ox 97 11/06/20 07:00 Intake & Output 11/05/20 11/06/20 11/06/20 18:59 06:59 18:59 Intake Total 200 350 Balance 200 350 Weight 49.895 kg Intake: Oral 200 350 Other: Voiding Method Toilet # Voids 1 3 1 - Labs CBC & Chem 7: 11/03/20 10:18 11/05/20 08:30 Labs: Abnormal Lab Results - Last 24 Hours (Table) 11/05/20 Range/Units 06:28 Ur Random Microalbumin 130.4 H (0.0-1.9) mg/dL Microalb/Creat Ratio 5719 H (0-30) mg/g Creat <Timothy Jones - Last Filed: 11/06/20 21:55> Objective - Vital Signs Vital signs: Vital Signs Temp 98.4 F 11/06/20 20:00 Pulse 66 11/06/20 21:25 Resp 17 11/06/20 21:25 BP 118/73 11/06/20 20:00 Pulse Ox 97 11/06/20 20:00 Intake & Output 11/06/20 11/06/20 11/07/20 06:59 18:59 06:59 Intake Total 350 860 Output Total 150 Balance 350 710 Intake: Oral 350 860 Output: Urine 150 Post Void Residual 0 Other: Voiding Method Toilet Toilet # Voids 3 1 1 - Labs CBC & Chem 7: 11/03/20 10:18 11/06/20 06:56 Labs: Abnormal Lab Results - Last 24 Hours (Table) 11/06/20 Range/Units 06:56 BUN 47.0 H (9.0-27.0) mg/dL Creatinine 3.5 H (0.6-1.5) mg/dL Est GFR (CKD-EPI)AfAm 13.7 L (60.0-200.0) Est GFR (CKD-EPI)NonAf 11.9 L (60.0-200.0) Calcium 7.3 L (8.7-10.3) mg/dL AST 48 H (13-35) U/L ALT 45 H (8-44) U/L Total Protein 3.7 L (6.2-8.2) g/dL Albumin 2.10 L (3.80-4.90) g/dL Albumin/Globulin Ratio 1.31 L (1.60-3.17) g/dL
--- NOTE | 2020-11-06 12:35 | ECHOF ---
Referral Reason:LV function MEASUREMENTS -------- HEIGHT: 152.4 cm WEIGHT: 49.9 kg BP: 97/62 RVIDd: 3.7 cm (< 3.3) IVSd: 1.4 cm (0.6 - 1.1) LVIDd: 3.0 cm (3.9 - 5.3) LVPWd: 1.5 cm (0.6 - 1.1) IVSs: 2.0 cm LVIDs: 1.9 cm LVPWs: 2.1 cm LAESV Index (A-L): 29.50 ml/m Ao Diam: 2.8 cm (2.0 - 3.7) AV Cusp: 1.7 cm (1.5 - 2.6) MV EXCURSION: 25.206 mm (> 18.000) MV EF SLOPE: 79 mm/s (70 - 150) EPSS: 0.1 cm RAP: 5.00 mmHg RVSP: 36.30 mmHg FINDINGS -------- Resting tachycardia (HR>100bpm). This was a technically adequate study. The left ventricular size is normal. There is moderate concentric left ventricular hypertrophy. O verall left ventricular systolic function is normal with, an EF between 55 - 60 %. There is increa sed LV thickness with mild speckled appearance. May be consistent with cardiac amyloidosis. Diasto lic filling is predominantly A wave dependent. The right ventricle is mildly enlarged. LA is midly dilated 29-33ml/m2. The right atrial size is normal. Interatrial and interventricular septum intact. There is mild aortic valve sclerosis. There is no evidence of aortic regurgitation. There is no e vidence of aortic stenosis. Mild mitral annular calcification present. There is trace to mild mitral regurgitation. Mild tricuspid regurgitation present. There is no evidence of pulmonary hypertension. The right v entricular systolic pressure, as measured by Doppler, is 36.30mmHg. There is no pulmonic regurgitation present. The aortic root size is normal. IVC Not well visulized. There is no pericardial effusion. CONCLUSIONS -------- 1. Resting tachycardia (HR>100bpm). 2. The left ventricular size is normal. 3. There is moderate concentric left ventricular hypertrophy. 4. Overall left ventricular systolic function is normal with, an EF between 55 - 60 %. 5. 6. There is increased LV thickness with mild speckled appearance. May be consistent with cardiac danielle loidosis. 7. The right ventricle is mildly enlarged. 8. LA is midly dilated 29-33ml/m2. 9. There is mild aortic valve sclerosis. 10. Mild mitral annular calcification present. 11. There is trace to mild mitral regurgitation. 12. Mild tricuspid regurgitation present. 13. There is no evidence of pulmonary hypertension. 14. The right ventricular systolic pressure, as measured by Doppler, is 36.30mmHg. WOODYARD OPERATOR: Addie Silverio RDCS
[2020-11-06 13:22] LABS: African American GFR (CKD) 13.7 (60.0-200.0); Albumin 2.1 g/dL (3.80-4.90); Albumin/Globulin Ratio 1.31 (1.60-3.17); Anion Gap 4.5 mmol/L (4.00-12.00); BUN/Creat Ratio 13.43 Ratio (12.00-20.00); Calcium 7.3 mg/dL (8.7-10.3); Carbon Dioxide 22.5 mmol/L (21.6-31.8); Globulin 1.6 g/dL (1.6-3.3); Non-African American GFR(CKD) 11.9 (60.0-200.0); Potassium 4.5 mmol/L (3.5-5.5); Total Bilirubin 0.3 mg/dL (0.2-1.2); Total Protein 3.7 g/dL (6.2-8.2)
--- NOTE | 2020-11-06 14:52 | PN ---
PROGRESS NOTE Patient is seen for followup for chronic kidney disease and acute kidney injury. Her renal function remains about the same since admission. Patient is maintained on IV fluids. Her creatinine did go down to 3.2 yesterday. Today it is back up to 3.5. She is scheduled for pacemaker placement today. The patient did have evidence of orthostatic hypotension when she first came in. She was found to have heart block and is scheduled for pacemaker placement today. No significant complaints. PHYSICAL EXAMINATION: On examination today, blood pressure was 97/62, heart rate 109 per minute. She is afebrile. Examination shows patient appears to be euvolemic with no evidence of edema lower extremity. SALES FACILITATOR exam grossly intact. LABS: Labs show sodium 136, potassium 4.5, BUN of 47, creatinine 3.5 mg/dL. ASSESSMENT: 1. Acute kidney injury, most likely related to some degree of hypoperfusion, although serum creatinine has not improved much since admission. It did go down to 3.2 yesterday, but back up to 3.5. Patient has had good urine output. I will obtain an ultrasound of the kidneys and we will check a post-void residual. Rule out urine retention. 2. Heart block, being followed by Cardiology. Scheduled for pacemaker placement. 3. Hypothyroidism. 4. Syncope, most likely related to underlying heart block. 5. 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 Baseline creatinine now 1.7-2 mg/dL. PLAN: Check ultrasound of the kidneys and check postvoid residual. Continue with the IV fluids. Repeat labs in a.m.. MMODL / IJN: [id number] /
--- NOTE | 2020-11-06 16:10 | P.PN ---
Subjective Progress Note Date: 11/06/20 Patient was seen for a follow-up. No new syncopal spells. Patient states that she has not been walking long enough to check for any symptoms. Patient's orthostatics today this morning was supine blood pressure 131/77, pulse rate 108, sitting was 97/62 with pulse of 109 and on standing up was 85/52 with pulse of 89. Patient was started on midodrine 10 mg 3 times a day. Her blood pressure seems to be now going up 196/100. Objective - Vital Signs Vital signs: Vital Signs Temp 97.5 F L 11/06/20 14:10 Pulse 103 H 11/06/20 14:10 Resp 17 11/06/20 14:10 BP 210/102 11/06/20 16:01 Pulse Ox 97 11/06/20 14:10 Intake & Output 11/05/20 11/06/20 11/06/20 18:59 06:59 18:59 Intake Total 200 350 680 Output Total 150 Balance 200 350 530 Weight 49.895 kg Intake: Oral 200 350 680 Output: Urine 150 Other: Voiding Method Toilet # Voids 1 3 1 - Exam Essentially unchanged. Detail testing deferred. Patient undergoing physical therapy evaluation now. - Labs CBC & Chem 7: 11/03/20 10:18 11/06/20 06:56 Labs: Abnormal Lab Results - Last 24 Hours (Table) 11/05/20 11/06/20 Range/Units 06:28 06:56 BUN 47.0 H (9.0-27.0) mg/dL Creatinine 3.5 H (0.6-1.5) mg/dL Est GFR (CKD-EPI)AfAm 13.7 L (60.0-200.0) Est GFR (CKD-EPI)NonAf 11.9 L (60.0-200.0) Calcium 7.3 L (8.7-10.3) mg/dL AST 48 H (13-35) U/L ALT 45 H (8-44) U/L Total Protein 3.7 L (6.2-8.2) g/dL Albumin 2.10 L (3.80-4.90) g/dL Albumin/Globulin Ratio 1.31 L (1.60-3.17) g/dL Ur Random Microalbumin 130.4 H (0.0-1.9) mg/dL Microalb/Creat Ratio 5719 H (0-30) mg/g Creat Assessment and Plan Assessment: * Recurrent syncopal spells, likely orthostatic. Patient had orthostatics checked, which was significantly abnormal. Patient has history of amyloidosis, which can produce autonomic dysfunction with orthostatic hypotension as well. * Rheumatoid arthritis * History of amyloidosis, with history of chemotherapy with subsequent development of peripheral neuropathy. * History of bilateral total knee arthroplasty. Plan: * Patient continues to have severe orthostatics. Midodrine has been started. Watch for blood pressure, as it seems to be rising up. Cardiology on the case. * Patient is already on Florinef 0.1 mg every morning. If symptoms persist, patient could be a candidate for Northera. * Carotid Doppler was performed, which revealed mild atherosclerotic changes bilaterally with no hemodynamic significant stenosis. Antegrade flow in both vertebral arteries. * Telemetry monitoring showing heart rate of 91 with normal sinus rhythm. Cardiology also on the case.
[2020-11-06] MEDS ORDERED: lisinopriL 20 MG TAB PO SCH (17:30)
--- NOTE | 2020-11-06 17:55 | PN ---
PROGRESS NOTE CHIEF COMPLAINT: Syncopal episode. HISTORY OF PRESENT ILLNESS: This lady is doing fairly well and studies so far have not revealed any significant abnormality or pathology. Her blood pressure is starting to rise. She was orthostatic when she came in. REVIEW OF SYSTEMS: She denies any headaches, neurologic problems, dizziness, syncope, shortness of breath, chest pain, etc. PHYSICAL EXAMINATION: Blood pressure is elevating, with systolic running up into the 170s. Her chest is clear. Cardiac exam is normal. Abdomen is soft, nontender. IMPRESSION: 1. Syncope, probably due to hypotension. 2. Hypertension. 3. Amyloidosis. PLAN: 1. Continue workup. 2. Introduce Lotensin 40 mg once a day to see if her blood pressure can be tolerated without hypotension. MMODL / IJN: [id number] /
[2020-11-06] MEDS: traZODone HCL 50 MG TAB PO SCH (21:23)
[2020-11-06] MEDS: ATORVASTATIN 40 MG TAB PO SCH (21:23)
--- NOTE | 2020-11-06 23:57 | US ---
EXAMINATION TYPE: US kidneys/renal and bladder DATE OF EXAM: 11/06/2020 COMPARISON: US, 04/24/16, CT 01/23/16 CLINICAL HISTORY: rf. EXAM MEASUREMENTS: Right Kidney: 11.3 x 5.5 x 5.2 cm Left Kidney: 11.8 x 5.6 x 5.3 cm Right Kidney: No hydronephrosis or masses seen Left Kidney: 2 lower pole cysts = 2.4 x 1.7 x 1.7 cm lateral 2.0 x 1.4 x 1.2 cm medial Bladder: fully distended Bilateral Jets seen: yes Normal Post Void Residual: Not calculated on this inpatient. There is no evidence for hydronephrosis at this point in time. No nephrolithiasis is seen. No blank s are identified. The urinary bladder is anechoic. Bilateral ureteral jets are seen. IMPRESSION: There is left renal simple cortical cysts. No solid renal mass or obstruction. Normal urinary bladder .
[2020-11-07] MEDS: LEVOTHYROXINE 25 MCG TAB PO SCH (05:32)
[2020-11-07] MEDS: SODIUM CHLORIDE 0.9% 1,000 ML IV SCH ×2 (08:25→17:59)
[2020-11-07] MEDS: MIDODRINE 5 MG TAB PO SCH ×3 (08:25→17:57)
[2020-11-07] MEDS: DORZOLAMIDE HCL 2% DROPS 10 ML BTL RIGHT EYE SCH ×2 (08:26→20:48)
[2020-11-07] MEDS: KETOTIFEN 0.025% OPHTH DROPS 5 ML BTL BOTH EYES SCH (08:26)
[2020-11-07] MEDS: FLUDROCORTISONE 0.1 MG TAB PO SCH (08:26)
[2020-11-07] MEDS: FAMOTIDINE 20 MG TAB PO SCH (08:26)
--- NOTE | 2020-11-07 10:48 | P.PN ---
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 She follows in the office with Dr Cee. We have been asked to see in consultation for syncope. She states over the previous couple of months she has had frequent episodes of syncope at home. Most recently on Wednesday she was up in her kitchen when she started to feel acutely dizzy and fell to the floor striking her right knee and hand. She did pass out for unknown amount of time. She denies feeling chest pain, shortness of breath, palpitations, nausea or diaphoresis prior to or after waking up. She denies prior history of arrhythmia or seizures. She states last night while being assisted back to the bathroom by the nurse she had a similar type episode however she did not actually pass out she just felt dizzy. The nurse was able to stabilize her and get her back to bed. Telemetry tracings throughout that episode were unremarkable. EKG reveals sinus mechanism with heart rate of 90 with first-degree AV block, right bundle branch block and left anterior fascicular block with nonspecific ST abnormalities noted. Telemetry tracings indicate sinus mechanism with no significant pauses or arrhythmia. Chest xray negative for any acute cardiopulmonary process. CT of the brain reveals low attenuation involving the left basal ganglia suggestive of remote infarct. Laboratory reviewed, WBC 5.1, hemoglobin 10.6, platelets 172, sodium 129, potassium 4.8, creatinine 3.22, cardiac enzymes negative 3, magnesium 2.7. Current cardiac medications include Orva statin 40 mg at bedtime. 11/06/2020 Patient examined this morning at the bedside. Patient denies chest pain or pressure. She denies shortness of breath. She reports feeling "woozy" this morning. She reports dizziness when she gets out of bed or changes positions quickly. Orthostatic blood pressures obtained this morning reveal a blood pressure supine 131/77, blood pressure sitting 97/62, and blood pressure standing 85/52. Patient gives further history of having approximately 5 episodes of syncope over the past few months. 11/07/2020 Patient examined this morning at the bedside with Dr. Jones. Patient was started on Midodrine yesterday for orthostatic hypotension. Her blood pressure subsequently increased to the 180-200s. She was started on 40mg of lisinopril by Dr. Pablo. Patients blood pressure then dropped to 67/41 when orthostatic blood pressures were performed overnight. Patient continues to report feeling lightheaded. Orthostatic blood pressures this morning were 113/70 supine, 91/58 sitting, and 93/53 standing. Echocardiogram completed yesterday revealed ejection fraction 55-60%, trace to mild mitral regurgitation, and mild tricuspid regurgitation. PHYSICAL EXAM: VITAL SIGNS: Reviewed. GENERAL: Well-developed in no acute distress. NECK: Supple. No JVD or thyromegaly LUNGS: Respirations even and unlabored. Lungs essentially clear to auscultation bilaterally. HEART: Regular rate and rhythm. S1 and S2 heard. EXTREMITIES: Normal range of motion. No clubbing or cyanosis. Peripheral pulses intact. No lower extremity edema ASSESSMENT: Trifascicular block Syncope, recurrent Orthostatic hypotension Possibly left basal ganglia remote infarct Chronic kidney disease secondary to amyloidosis Hyponatremia Dyslipidemia History of breast cancer status post lumpectomy PLAN: Continue telemetry monitoring Discontinue Lisinopril Decrease Midodrine to 5mg TID Monitor orthostatic blood pressures daily Dr. Jones spoke with Dr. Wu regarding patient case and possible PPM secondary to trifascicular block and recurrent syncope. Dr. Wu recommends tilt table testing to be performed first. Further recommendations to follow after tilt table testing is performed. Nurse practitioner note has been reviewed by physician. Signing provider agrees with the documented findings, assessment, and plan of care. Objective - Vital Signs Vital signs: Vital Signs Temp 97.8 F 11/07/20 07:00 Pulse 103 H 11/07/20 07:00 Resp 20 11/07/20 07:00 BP 113/70 11/07/20 07:00 Pulse Ox 96 11/07/20 07:00 Intake & Output 11/06/20 11/07/20 11/07/20 18:59 06:59 18:59 Intake Total 860 Output Total 150 Balance 710 Intake: Oral 860 Output: Urine 150 Post Void Residual 0 Other: Voiding Method Toilet # Voids 1 1 # Bowel Movements 1 - Labs CBC & Chem 7: 11/03/20 10:18 11/06/20 06:56 Labs: Abnormal Lab Results - Last 24 Hours (Table) 11/06/20 Range/Units 06:56 BUN 47.0 H (9.0-27.0) mg/dL Creatinine 3.5 H (0.6-1.5) mg/dL Est GFR (CKD-EPI)AfAm 13.7 L (60.0-200.0) Est GFR (CKD-EPI)NonAf 11.9 L (60.0-200.0) Calcium 7.3 L (8.7-10.3) mg/dL AST 48 H (13-35) U/L ALT 45 H (8-44) U/L Total Protein 3.7 L (6.2-8.2) g/dL Albumin 2.10 L (3.80-4.90) g/dL Albumin/Globulin Ratio 1.31 L (1.60-3.17) g/dL
[2020-11-07 15:22] LABS: African American GFR (CKD) 15 (>60 ml/min/1.73 sqM); Anion Gap 1 mmol/L; Blood Urea Nitrogen 45 mg/dL (7-17); Calcium 7.9 mg/dL (8.4-10.2); Carbon Dioxide 21 mmol/L (22-30); Chloride 108 mmol/L (98-107); Glucose 83 mg/dL (74-99); Non-African American GFR(CKD) 13 (>60 ml/min/1.73 sqM); Potassium 3.9 mmol/L (3.5-5.1); Sodium 130 mmol/L (137-145)
--- NOTE | 2020-11-07 15:34 | P.EPPROC ---
- EP Procedure Note Electrophysiology Procedure Note: Diagnosis Recurrent syncope Twelve-lead EKG was reviewed and shows sinus rhythm mildly prolonged TX interval right bundle branch block left anterior fascicular block, QRS duration 134 ms Tilt table test per protocol Baseline blood pressure elevated at 174/87 mmHg, pulse rate 112 beats a minute Patient was tilted upright at an angle of 70 per protocol She had an abrupt immediate drop in blood pressure with a heart rate going up 120 beats a minute. With ClearSite, blood pressure is between 40-50 mmHg systolic recorded She felt dizzy and then became syncopal When she was laid supine she did not even remember standing up. She complained of nausea After about 15 minutes this was repeated once again Supine blood pressure 158/85 mmHg, pulse rate 89 beats a minute She was tilted upright once again Initial blood pressure dropped to 106/60 mmHg then subsequently to 90/54, 82/46 and 74/59 and then was unrecordable by arm cuff blood pressure readings ClearSite recorded lows blood pressure at 39mmHg She complained of nausea felt as if she will pass out and then became syncopal She was laid supine and her blood pressure rebounded back 269/92 mmHg At no point did she experience any bradycardia. Lowest heart rate 89 beats a minute Impression Very Severe dysautonomic response with orthostatic hypotension syndrome and syncope Is the most likely mechanism of her syncope rather than AV block of bradycardia
--- NOTE | 2020-11-07 15:41 | PN ---
PROGRESS NOTE Patient is seen for followup for chronic kidney disease. Patient was admitted with syncope. She has significant postural hypotension. She is maintained on IV fluids and midodrine. Patient does have history of amyloidosis, and this is most likely contributing to her orthostatic hypotension. Initially there were plans for pacemaker placement; however, it looks like it is on hold at this time. ON EXAMINATION Pt is comfortable, awake, alert and oriented x3. Euvolemic. No edema noted. Lungs are clear CVS. S1 and S2 SKIN FORMER exam grossly intact ASSESSMENT 1.Chronic kidney disease, stage 4, with biopsy-proven amyloidosis, status post initial treatment 2016. Currently creatinine is staying at about 1.7 to 2 mg/dL prior to this admission. 2Orthostatic hypotension, most likely related to underlying amyloidosis. 3.NATHALIA, pre renal versus progression of underlying kidney disease. PLAN: Continue with IV fluids. Check labs today. If renal function does not improve, we may need to consider re-biopsy, as she does continue to have proteinuria. At this time I am not sure how much it would add to her management unless we try to treat amyloidosis again. MMODL / IJN: [id number] / CASIE
--- NOTE | 2020-11-07 17:41 | PN ---
PROGRESS NOTE DATE OF SERVICE: 11/07/2020 CHIEF COMPLAINT: Syncope. HISTORY OF PRESENT ILLNESS: This lady is doing fairly well and is stable. She is reportedly going for a tilt-table test. Last night, her blood sugars were quite high and she was started on lisinopril 40 mg once a day. Today they have dropped down and her lisinopril will be stopped. PHYSICAL EXAMINATION: Chest is clear. Cardiac exam is normal. Abdomen is soft, nontender. Extremities are normal. IMPRESSION: 1. Syncope. 2. Hypertension. 3. Amyloidosis. 4. Renal failure. 5. Depression. PLAN: 1. Stop Lotensin. 2. Work on discharge plan. MMODL / IJN: [id number] /
[2020-11-07] MEDS: ATORVASTATIN 40 MG TAB PO SCH (20:47)
[2020-11-07] MEDS: traZODone HCL 50 MG TAB PO SCH (20:48)
[2020-11-08] MEDS: LEVOTHYROXINE 25 MCG TAB PO SCH (05:43)
[2020-11-08] MEDS: KETOTIFEN 0.025% OPHTH DROPS 5 ML BTL BOTH EYES SCH (07:24)
[2020-11-08] MEDS: MIDODRINE 5 MG TAB PO SCH (07:24)
[2020-11-08] MEDS: FLUDROCORTISONE 0.1 MG TAB PO SCH (07:24)
[2020-11-08] MEDS: FAMOTIDINE 20 MG TAB PO SCH (07:24)
[2020-11-08] MEDS: DORZOLAMIDE HCL 2% DROPS 10 ML BTL RIGHT EYE SCH (07:25)
[2020-11-08 07:28] VITALS: BP 120/72; PULSE 112; RESP 16; TEMP 98.4
[2020-11-08] MEDS: SODIUM CHLORIDE 0.9% 1,000 ML IV SCH (11:00)
--- NOTE | 2020-11-08 12:22 | P.PN ---
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 She follows in the office with Dr Cee. We have been asked to see in consultation for syncope. She states over the previous couple of months she has had frequent episodes of syncope at home. Most recently on Wednesday she was up in her kitchen when she started to feel acutely dizzy and fell to the floor striking her right knee and hand. She did pass out for unknown amount of time. She denies feeling chest pain, shortness of breath, palpitations, nausea or diaphoresis prior to or after waking up. She denies prior history of arrhythmia or seizures. She states last night while being assisted back to the bathroom by the nurse she had a similar type episode however she did not actually pass out she just felt dizzy. The nurse was able to stabilize her and get her back to bed. Telemetry tracings throughout that episode were unremarkable. EKG reveals sinus mechanism with heart rate of 90 with first-degree AV block, right bundle branch block and left anterior fascicular block with nonspecific ST abnormalities noted. Telemetry tracings indicate sinus mechanism with no significant pauses or arrhythmia. Chest xray negative for any acute cardiopulmonary process. CT of the brain reveals low attenuation involving the left basal ganglia suggestive of remote infarct. Laboratory reviewed, WBC 5.1, hemoglobin 10.6, platelets 172, sodium 129, potassium 4.8, creatinine 3.22, cardiac enzymes negative 3, magnesium 2.7. Current cardiac medications include Orva statin 40 mg at bedtime. 11/06/2020 Patient examined this morning at the bedside. Patient denies chest pain or pressure. She denies shortness of breath. She reports feeling "woozy" this morning. She reports dizziness when she gets out of bed or changes positions quickly. Orthostatic blood pressures obtained this morning reveal a blood pressure supine 131/77, blood pressure sitting 97/62, and blood pressure standing 85/52. Patient gives further history of having approximately 5 episodes of syncope over the past few months. 11/07/2020 Patient examined this morning at the bedside with Dr. Jones. Patient was started on Midodrine yesterday for orthostatic hypotension. Her blood pressure subsequently increased to the 180-200s. She was started on 40mg of lisinopril by Dr. Pablo. Patients blood pressure then dropped to 67/41 when orthostatic blood pressures were performed overnight. Patient continues to report feeling lightheaded. Orthostatic blood pressures this morning were 113/70 supine, 91/58 sitting, and 93/53 standing. Echocardiogram completed yesterday revealed ejection fraction 55-60%, trace to mild mitral regurgitation, and mild tricuspid regurgitation. 11/08/2020 Patient underwent tilt table test yesterday revealing severe dysautonomia and syncope. Patient examined this morning at the bedside. Systolic blood pressures running 100-120. She is on midodrine 5mg TID. Lisinopril has been discontinued PHYSICAL EXAM: VITAL SIGNS: Reviewed. GENERAL: Well-developed in no acute distress. NECK: Supple. No JVD or thyromegaly LUNGS: Respirations even and unlabored. Lungs essentially clear to auscultation bilaterally. HEART: Regular rate and rhythm. S1 and S2 heard. EXTREMITIES: Normal range of motion. No clubbing or cyanosis. Peripheral pulses intact. No lower extremity edema ASSESSMENT: Trifascicular block Syncope, recurrent Orthostatic hypotension Severe dysautonomia Possibly left basal ganglia remote infarct Chronic kidney disease secondary to amyloidosis Hyponatremia Dyslipidemia History of breast cancer status post lumpectomy PLAN: Increase Midodrine to 10mg TID Patient to have thigh high YOSI hose applied today Patient instructed in increase fluid intake and salt intake by Dr. Jones 30 day event monitor to be placed today No plans for PPM at this time Patient may be discharged home today from a cardiac standpoint Nurse practitioner note has been reviewed by physician. Signing provider agrees with the documented findings, assessment, and plan of care. Objective - Vital Signs Vital signs: Vital Signs Temp 98.4 F 11/08/20 07:00 Pulse 112 H 11/08/20 07:00 Resp 16 11/08/20 07:00 BP 120/72 11/08/20 07:00 Pulse Ox 97 11/08/20 07:00 Intake & Output 11/07/20 11/08/20 11/08/20 18:59 06:59 18:59 Intake Total 200 240 Balance 200 240 Weight 49.895 kg Intake: Oral 200 240 Other: Voiding Method Toilet Toilet # Voids 2 2 # Bowel Movements 1 - Labs CBC & Chem 7: 11/03/20 10:18 11/07/20 13:50 Labs: Abnormal Lab Results - Last 24 Hours (Table) 11/07/20 Range/Units 13:50 Sodium 130 L (137-145) mmol/L Chloride 108 H (98-107) mmol/L Carbon Dioxide 21 L (22-30) mmol/L BUN 45 H (7-17) mg/dL Creatinine 3.19 H (0.52-1.04) mg/dL Calcium 7.9 L (8.4-10.2) mg/dL
[2020-11-08] MEDS ORDERED: MIDODRINE 5 MG TAB PO SCH (12:30)
--- NOTE | 2020-11-08 14:32 | PN ---
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 There was possible component of prerenal state with episodes of heart block with significant orthostatic hypotension. However, creatinine has not improved much in spite of being on fluids for about 3 days now. No plans for pacemaker placement. The patient is encouraged to follow with her primary care professionals/oncologist as outpatient for another trial of treatment of amyloidosis. PHYSICAL EXAMINATION: On examination today, blood pressure was 100/58, heart rate 84 per minute. She is afebrile. Examination shows patient is euvolemic. No evidence of edema lower extremities. LABS: Labs show sodium 130, potassium 3.9, BUN 45, creatinine of 3.1. ASSESSMENT: 1. Acute kidney injury, most likely related to progression of underlying kidney disease which is amyloidosis with plans for possible second trial of treatment. First trial was in 2017 and patient had developed significant neuropathy at that time. She will follow up with her primary care professionals as outpatient. 2. Orthostatic hypotension most likely related to amyloidosis. 3. Heart block noted on initial admission, being followed by Cardiology. PLAN: The patient is encouraged to follow up as outpatient with Hematology for second trial of treatment of amyloidosis. The orthostatic hypotension is most likely secondary to the amyloidosis as well. MMODL / IJN: [id number] /
--- NOTE | 2020-11-08 18:31 | DS ---
DISCHARGE SUMMARY CHIEF COMPLAINT: Syncope. HISTORY OF PRESENT ILLNESS AND PHYSICAL EXAMINATION: Details of this lady's history and physical can be found in the initial workup. LABORATORY STUDIES: While she was in the hospital, she had laboratory studies, details which can be found in the laboratory section of her chart. COURSE IN THE HOSPITAL: After admission, she was placed at bedrest and followed by Neurology and Cardiology. She was also seen by Nephrology. After her antihypertensives were stopped, her blood pressure started to climb. She underwent a workup by Cardiology and it was recognized that she did not respond normally to orthostatic testing and it was thought that this may be due to amyloid heart. She was cleared to go home on November 08 and will try to live independently at home. She does have some family support. She will be supplied with a walker and a wheelchair. She will be set up with home nursing. Her prognosis is poor considering her extremely poor renal function, congestive heart failure and probable amyloidosis of the heart. FINAL DIAGNOSES: 1. Syncope. 2. Bradycardia. 3. Orthostatic hypotension. 4. Amyloidosis. 5. Chronic renal failure, stage IV. OPERATIONS: None. CONSULTATIONS: Nephrology, cardiology and Neurology. MMODL / IJN: [id number] /
--- NOTE | 2020-11-10 17:01 | P.PN ---
Subjective Progress Note Date: 11/07/20 Patient was seen for a follow-up. Patient denies any further syncopal spells. She is going for tilt table test today. Patient states that she did went up and down the hallway. Cardiology is contemplating if syncope is due to orthostatic hypotension or from heart block/bradycardia. In later case, patient may need a pacer. Her orthostatics today, supine blood pressure 101/55 with pulse of 90. Sitting up was 67/41 with pulse of 109. On standing up 71/39 and pulse of 120. Another reading later was supine 113/70, sitting 91/58 and standing 93/53. This is somewhat better than yesterday. Objective - Vital Signs Vital signs: Vital Signs Temp 97.8 F 11/07/20 07:00 Pulse 103 H 11/07/20 07:00 Resp 20 11/07/20 07:00 BP 113/70 11/07/20 07:00 Pulse Ox 96 11/07/20 07:00 Intake & Output 11/06/20 11/07/20 11/07/20 18:59 06:59 18:59 Intake Total 860 Output Total 150 Balance 710 Intake: Oral 860 Output: Urine 150 Post Void Residual 0 Other: Voiding Method Toilet # Voids 1 1 # Bowel Movements 1 - Exam Essentially unchanged. Detail testing deferred. Patient's mental status speech and language functions are normal. No ataxia. Cranial nerves normal. No ataxia, gait deferred. - Labs CBC & Chem 7: 11/03/20 10:18 11/07/20 13:50 Labs: Abnormal Lab Results - Last 24 Hours (Table) 11/06/20 Range/Units 06:56 BUN 47.0 H (9.0-27.0) mg/dL Creatinine 3.5 H (0.6-1.5) mg/dL Est GFR (CKD-EPI)AfAm 13.7 L (60.0-200.0) Est GFR (CKD-EPI)NonAf 11.9 L (60.0-200.0) Calcium 7.3 L (8.7-10.3) mg/dL AST 48 H (13-35) U/L ALT 45 H (8-44) U/L Total Protein 3.7 L (6.2-8.2) g/dL Albumin 2.10 L (3.80-4.90) g/dL Albumin/Globulin Ratio 1.31 L (1.60-3.17) g/dL Assessment and Plan Assessment: * Severe orthostatic hypotension, with recurrent syncope. * Severe dysautonomia due to history of amyloidosis, which can produce autonomic dysfunction with orthostatic hypotension as well. * Rheumatoid arthritis * History of amyloidosis, with history of chemotherapy with subsequent development of peripheral neuropathy. * History of bilateral total knee arthroplasty. Plan: * Patient continues to have severe orthostatics. Midodrine has been started. Her orthostatics have slightly improved. * Patient underwent tilt table test today. It revealed very severe dysautonomic response with orthostatic hypotension syndrome and syncope is most likely mechanism of her syncope, rather than AV block or bradycardia. Cardiology on the case. * Patient is already on Florinef 0.1 mg every morning, and also started on midodrine. If symptoms persist, patient could be a candidate for Northera. * Carotid Doppler was performed, which revealed mild atherosclerotic changes bilaterally with no hemodynamic significant stenosis. Antegrade flow in both vertebral arteries.
== END 2020-11-08 15:13 | disposition home health service (06) | DRG 312 ==
LOC: EC 09:58 → 6NMEDSUR 11:26 → OBSVTOIN 11-05 15:57
PROVIDERS: ADMIT Family Medicine; ATTEND Family Medicine
PROC: 4A02XFZ Measurement of Cardiac Rhythm, External Approach (ICD-10-PCS; principal; 2020-11-07 07:30)
PROC: 4A03XB1 Measurement of Arterial Pressure, Peripheral, External Approach (ICD-10-PCS; principal; 2020-11-07 07:30)
DX: I95.1 Orthostatic hypotension (principal); I45.3 Trifascicular block; E85.9 Amyloidosis, unspecified; E87.1 Hypo-osmolality and hyponatremia; N17.9 Acute kidney failure, unspecified; N18.4 Chronic kidney disease, stage 4 (severe); I44.0 Atrioventricular block, first degree; I45.10 Unspecified right bundle-branch block; M05.60 Rheumatoid arthritis of unspecified site with involvement of other organs and systems; J45.909 Unspecified asthma, uncomplicated; E03.9 Hypothyroidism, unspecified; E78.5 Hyperlipidemia, unspecified; E87.5 Hyperkalemia; E83.9 Disorder of mineral metabolism, unspecified; F32.9 Major depressive disorder, single episode, unspecified; G62.0 Drug-induced polyneuropathy; G90.1 Familial dysautonomia [Riley-Day]; I12.9 Hypertensive chronic kidney disease with stage 1 through stage 4 chronic kidney disease, or unspecified chronic kidney disease; M06.9 Rheumatoid arthritis, unspecified; M13.0 Polyarthritis, unspecified; T45.1X5A Adverse effect of antineoplastic and immunosuppressive drugs, initial encounter; Z91.81 History of falling; R00.1 Bradycardia, unspecified; Z20.822 Contact with and (suspected) exposure to COVID-19; Z79.52 Long term (current) use of systemic steroids; Z79.890 Hormone replacement therapy; Z79.899 Other long term (current) drug therapy; Z80.3 Family history of malignant neoplasm of breast; Z82.49 Family history of ischemic heart disease and other diseases of the circulatory system; Z85.3 Personal history of malignant neoplasm of breast; Z96.653 Presence of artificial knee joint, bilateral; Z98.42 Cataract extraction status, left eye; Z98.41 Cataract extraction status, right eye; Z88.1 Allergy status to other antibiotic agents; Z88.2 Allergy status to sulfonamides; Z88.8 Allergy status to other drugs, medicaments and biological substances
CPT/HCPCS: 36415; 70450; 71046; 76770; 80048; 80053; 81001; 82043; 82533; 82570; 83735; 84300; 84443; 84484; 84540; 85025; 85610; 85730; 87636; 90715; 93005; 93270; 93306; 93660; 93880; 99285

== ENCOUNTER 2020-11-16 08:27 | Inpatient (IN) | payer MEDICARE ==
--- NOTE | 2020-11-16 08:41 | ED ---
General Adult HPI - General Stated complaint: Syncope Time Seen by Provider: 11/16/20 08:32 Source: patient, RN notes reviewed, old records reviewed Mode of arrival: ambulatory Limitations: no limitations - History of Present Illness Initial comments: 80-year-old female presents with syncope, collapsed. Patient has had recurrent episodes and has been diagnosed with severe dysautonomia and orthostatic hypotension. She is on Midodrine. She had not taken this yet this morning. She was transported by EMS after they were called for fall. She is found to be hypotensive by EMS. Additionally she when she was discharged one week ago she was discharged with a Holter monitor. She denies chest pain or palpitations. She denies dyspnea or cough. Denies fever. No vomiting. No abdominal pain. No injury with the fall. She did have one episode of diarrhea but has not had c onsistent diarrhea. No dysuria or urinary frequency. - Related Data Home Medications Medication Instructions Recorded Confirmed Ergocalciferol [Vitamin D2 50,000 unit PO Q14D 05/15/17 11/03/20 (DRISDOL)] Atorvastatin [Lipitor] 40 mg PO HS 11/03/20 11/04/20 Famotidine [Pepcid] 20 mg PO DAILY 11/03/20 11/03/20 Fludrocortisone Acetate 0.1 mg PO DAILY 11/03/20 11/03/20 Levothyroxine Sodium 25 mcg PO DAILY 11/03/20 11/03/20 Olopatadine HCl [Pataday] 1 drop BOTH EYES DAILY 11/03/20 11/03/20 Dorzolamide 2% [Trusopt 2%] 1 drops RIGHT EYE BID 11/04/20 11/04/20 Previous Rx's Medication Instructions Recorded Midodrine [ProAmatine] 10 mg PO AC-TID #30 tab 11/08/20 Allergies Allergy/AdvReac Type Severity Reaction Status Date / Time adhesive tape Allergy PEELS OFF Verified 11/03/20 11:24 SKIN aspirin Allergy Unknown Verified 11/03/20 11:24 bacitracin Allergy Rash/Hives Verified 11/03/20 11:24 ciprofloxacin [From Cipro] Allergy Unknown Verified 11/03/20 11:24 Sulfa (Sulfonamide Allergy Unknown Verified 11/03/20 11:24 Antibiotics) zinc oxide Allergy Rash/Hives Verified 11/03/20 11:24 codeine AdvReac Hallucinati Verified 11/03/20 11:24 ons NSAIDS (Non-Steroidal AdvReac CAUSED Verified 11/03/20 11:24 Anti-Inflamma BLEEDING ULCER prednisone AdvReac "I WAS Verified 11/03/20 11:24 GOING A MILE A MINUTE" Review of Systems ROS Statement: Those systems with pertinent positive or pertinent negative responses have been documented in the HPI. ROS Other: All systems not noted in ROS Statement are negative. Past Medical History Past Medical History: Asthma, Cancer, Hyperlipidemia, Osteoarthritis (OA), Rheumatoid Arthritis (RA) Additional Past Medical History / Comment(s): 2015 L breast cancer with lumpectomy, 2015 amloidosis with chemotherapy and numbness/tingling bilateral hands/feet from chemo, bilateral leg weakness especially R leg, havfever, sinus problems, generalized arthritis, RA also affects eyes soft tissue, migraines, hypothyroid, November 20- pt wearing holer monitor History of Any Multi-Drug Resistant Organisms: None Reported Past Surgical History: Breast Surgery, Section, Joint Replacement, Ort hopedic Surgery, Tonsillectomy Additional Past Surgical History / Comment(s): Bilateral breast biopsies, L breast lumpectomy, bone marrow aspiration, renal biopsy, multiple D&Cs, R eye retinal surgery, bilateral cataract removals, bilateral blepharoplasties, colonoscopy, L ankle ORIF, L knee arthroscopy, bilateral total knee arthroplasties. Past Anesthesia/Blood Transfusion Reactions: Motion Sickness Additional Past Anesthesia/Blood Transfusion Reaction / Comment(s): motion sickness as child Past Psychological History: Anxiety, Depression Smoking Status: Never smoker Past Alcohol Use History: None Reported Past Drug Use History: None Reported - Past Family History Mother Family Medical History: Cancer Additional Family Medical History / Comment(s): Mother had breast cancer. Father Family Medical History: Coronary Artery Disease (CAD) General Exam Limitations: no limitations General appearance: alert, in no apparent distress Head exam: Present: atraumatic, normocephalic Eye exam: Present: normal appearance, PERRL ENT exam: Present: normal exam Neck exam: Present: normal inspection. Absent: tenderness, meningismus Respiratory exam: Present: normal lung sounds bilaterally. Absent: respiratory distress, wheezes Cardiovascular Exam: Present: regular rate, normal rhythm GI/Abdominal exam: Present: soft. Absent: distended, tenderness, guarding Extremities exam: Present: normal inspection, normal capillary refill. Absent: pedal edema, calf tenderness Neurological exam: Present: alert, oriented X3, CN II-XII intact. Absent: motor sensory deficit Psychiatric exam: Present: normal affect, normal mood Skin exam: Present: warm, dry, intact. Absent: cyanosis, diaphoretic Course Vital Signs 11/16/20 11/16/20 08:29 08:59 Temperature 98.0 F Pulse Rate 69 72 Respiratory 18 18 Rate Blood Pressure 156/85 137/85 O2 Sat by Pulse 98 98 Oximetry EKG Findings - EKG Comments: EKG Findings:: Sinus rhythm first-degree AV block,, right bundle branch block, left anterior fascicular block, trifascicular block rate of 72, KS interval 240, QRS duration 142, QTC 510. Medical Decision Making - Medical Decision Making 72-year-old female with recurrent syncope. Patient has initial stable blood pressure. She has a trifascicular block on EKG. No complaints of chest pain or palpitations. No vomiting. No fever. Patient is well-appearing. Chest x-rays clear no focal pneumonia or acute findings. She has mild anemia which is stable. Electrolytes abnormality including a potassium of 3.0 which is replaced. She has an elevated creatinine which is slightly worse than baseline at 3.64. Her troponin minimally elevated 0.097 with no active chest pain in the setting of chronic kidney disease. This level will be trended. Additionally her albumin is low at 2.1 which is likely contributing. She will be observed on telemetry, cardiology placed on consult, troponin level will be trended. - Lab Data Result diagrams: 11/16/20 08:38 11/16/20 08:38 Lab Results 11/16/20 11/16/20 11/16/20 Range/Units 08:38 08:38 08:38 WBC 5.8 (3.8-10.6) k/uL RBC 3.11 L (3.80-5.40) m/uL Hgb 10.3 L (11.4-16.0) gm/dL Hct 29.3 L (34.0-46.0) % MCV 94.0 (80.0-100.0) fL MCH 33.0 (25.0-35.0) pg MCHC 35.1 (31.0-37.0) g/dL RDW 14.6 (11.5-15.5) % Plt Count 184 (150-450) k/uL MPV 8.8 Neutrophils % 59 % Lymphocytes % 28 % Monocytes % 7 % Eosinophils % 3 % Basophils % 1 % Neutrophils # 3.4 (1.3-7.7) k/uL Lymphocytes # 1.6 (1.0-4.8) k/uL Monocytes # 0.4 (0-1.0) k/uL Eosinophils # 0.2 (0-0.7) k/uL Basophils # 0.1 (0-0.2) k/uL PT 10.4 (9.0-12.0) sec INR 1.0 (<1.2) APTT 21.6 L (22.0-30.0) sec Sodium 134 L (137-145) mmol/L Potassium 3.0 L (3.5-5.1) mmol/L Chloride 100 (98-107) mmol/L Carbon Dioxide 30 (22-30) mmol/L Anion Gap 4 mmol/L BUN 59 H (7-17) mg/dL Creatinine 3.64 H (0.52-1.04) mg/dL Est GFR (CKD-EPI)AfAm 13 (>60 ml/min/1.73 sqM) Est GFR (CKD-EPI)NonAf 11 (>60 ml/min/1.73 sqM) Glucose 87 (74-99) mg/dL Calcium 7.7 L (8.4-10.2) mg/dL Magnesium 1.9 (1.6-2.3) mg/dL Total Bilirubin 0.3 (0.2-1.3) mg/dL AST 36 (14-36) U/L ALT 25 (4-34) U/L Alkaline Phosphatase 70 (38-126) U/L Troponin I (0.000-0.034) ng/mL Total Protein 4.3 L (6.3-8.2) g/dL Albumin 2.1 L (3.5-5.0) g/dL 11/16/20 Range/Units 08:38 WBC (3.8-10.6) k/uL RBC (3.80-5.40) m/uL Hgb (11.4-16.0) gm/dL Hct (34.0-46.0) % MCV (80.0-100.0) fL MCH (25.0-35.0) pg MCHC (31.0-37.0) g/dL RDW (11.5-15.5) % Plt Count (150-450) k/uL MPV Neutrophils % % Lymphocytes % % Monocytes % % Eosinophils % % Basophils % % Neutrophils # (1.3-7.7) k/uL Lymphocytes # (1.0-4.8) k/uL Monocytes # (0-1.0) k/uL Eosinophils # (0-0.7) k/uL Basophils # (0-0.2) k/uL PT (9.0-12.0) sec INR (<1.2) APTT (22.0-30.0) sec Sodium (137-145) mmol/L Potassium (3.5-5.1) mmol/L Chloride (98-107) mmol/L Carbon Dioxide (22-30) mmol/L Anion Gap mmol/L BUN (7-17) mg/dL Creatinine (0.52-1.04) mg/dL Est GFR (CKD-EPI)AfAm (>60 ml/min/1.73 sqM) Est GFR (CKD-EPI)NonAf (>60 ml/min/1.73 sqM) Glucose (74-99) mg/dL Calcium (8.4-10.2) mg/dL Magnesium (1.6-2.3) mg/dL Total Bilirubin (0.2-1.3) mg/dL AST (14-36) U/L ALT (4-34) U/L Alkaline Phosphatase (38-126) U/L Troponin I 0.097 H* (0.000-0.034) ng/mL Total Protein (6.3-8.2) g/dL Albumin (3.5-5.0) g/dL Disposition Clinical Impression: Renal insufficiency, Amyloidosis, Syncope, Elevated troponin Disposition: ADMITTED IP TO THIS [facility] Condition: Stable Is patient prescribed a controlled substance at d/c from ED?: No Referrals: Que Pablo MD [Primary Care Provider] - 1-2 days Decision to Admit Reason: Admit from EC Decision Date: 11/16/20 Decision Time: 10:21
[2020-11-16 08:46] LABS: Basophils # (A) 0.1 k/uL (0-0.2); Basophils % (A) 1 %; Eosinophils # (A) 0.2 k/uL (0-0.7); Eosinophils % (A) 3 %; HCT 29.3 % (34.0-46.0); HGB 10.3 gm/dL (11.4-16.0); Lymphocytes # (A) 1.6 k/uL (1.0-4.8); Lymphocytes % (A) 28 %; MCHC 35.1 g/dL (31.0-37.0); Mean Platelet Volume 8.8; Monocytes # (A) 0.4 k/uL (0-1.0); Monocytes % (A) 7 %; Neutrophils # (A) 3.4 k/uL (1.3-7.7); Neutrophils % (A) 59 %; Platelet Count 184 k/uL (150-450); RBC 3.11 m/uL (3.80-5.40); RDW 14.6 % (11.5-15.5); WBC 5.8 k/uL (3.8-10.6)
[2020-11-16] MEDS ORDERED: MIDODRINE 5 MG TAB PO STA (08:46)
[2020-11-16 09:02] LABS: Albumin 2.1 g/dL (3.5-5.0); Calcium 7.7 mg/dL (8.4-10.2); Magnesium 1.9 mg/dL (1.6-2.3); Total Bilirubin 0.3 mg/dL (0.2-1.3); Total Protein 4.3 g/dL (6.3-8.2)
[2020-11-16 09:03] LABS: Prothrombin Time 10.4 sec (9.0-12.0)
--- NOTE | 2020-11-16 09:08 | XR ---
EXAMINATION TYPE: XR chest 2V DATE OF EXAM: 11/16/2020 COMPARISON: 11/03/2020 TECHNIQUE: PA and lateral views submitted. HISTORY: Syncope FINDINGS: The lungs are clear and there is no pneumothorax, pleural effusion, or focal pneumonia. Hyperinflat ion. Atherosclerotic change aorta. Heart size normal with no overt failure. Arthropathy of the should ers with diffuse osteopenia. Degenerative changes of the spine. IMPRESSION: 1. No acute process. COPD.
[2020-11-16 09:12] LABS: Partial Thromboplastin Time 21.6 sec (22.0-30.0)
[2020-11-16] MEDS ORDERED: NALOXONE 0.4 MG/ML 1 ML VIAL IV PRN (10:17)
[2020-11-16] MEDS: SODIUM CHLORIDE 0.9% 1,000 ML IV SCH (10:58)
[2020-11-16] MEDS: POTASSIUM CHLORIDE 10 MEQ in WATER FOR INJECTION 1 100ML.BAG IVPB SCH ×4 (10:58→17:41)
[2020-11-16 11:01] LABS: Amorphous Sediment,Urine Rare /hpf; Appearance,Urine Cloudy (Clear); Bacteria,Urine Many /hpf; Bilirubin,Urine Negative (Negative); Blood,Urine Small (Negative); Color,Urine Light Yellow; Glucose,Urine (UA) Negative (Negative); Ketones,Urine Negative (Negative); Leukocyte Esterase,Urine Trace (Negative); Mucus,Urine Rare /hpf; Nitrite,Urine Negative (Negative); PH, Urine 6.5 (5.0-8.0); Protein,Urine 3+ (Negative); RBC,Urine 4 /hpf (0-5); Specific Gravity,Urine 1.008 (1.001-1.035); Urobilinogen,Urine <2.0 mg/dL (<2.0); WBC,Urine 8 /hpf (0-5)
[2020-11-16] MEDS ORDERED: traZODone HCL 50 MG TAB PO PRN (23:09)
[2020-11-17] MEDS: SODIUM CHLORIDE 0.9% 1,000 ML IV SCH ×2 (00:48→20:41)
[2020-11-17 07:58] LABS: Basophils % (A) 1 %; Eosinophils # (A) 0.2 k/uL (0-0.7); Eosinophils % (A) 3 %; HCT 28.3 % (34.0-46.0); HGB 9.8 gm/dL (11.4-16.0); Lymphocytes # (A) 1.7 k/uL (1.0-4.8); Lymphocytes % (A) 29 %; MCH 33.1 pg (25.0-35.0); MCHC 34.5 g/dL (31.0-37.0); MCV 95.9 fL (80.0-100.0); Mean Platelet Volume 8.9; Monocytes # (A) 0.5 k/uL (0-1.0); Monocytes % (A) 8 %; Neutrophils # (A) 3.2 k/uL (1.3-7.7); Neutrophils % (A) 57 %; Platelet Count 184 k/uL (150-450); RBC 2.95 m/uL (3.80-5.40); RDW 14.7 % (11.5-15.5); WBC 5.7 k/uL (3.8-10.6)
[2020-11-17 08:20] LABS: Albumin 1.9 g/dL (3.5-5.0); Calcium 7.8 mg/dL (8.4-10.2); Total Bilirubin 0.3 mg/dL (0.2-1.3)
[2020-11-17 08:21] LABS: Potassium 3.6 mmol/L (3.5-5.1)
[2020-11-17] MEDS ORDERED: ARTIFICIAL TEARS-HYPROMELLOSE DROPS 15 ML BTL BOTH EYES PRN (09:49)
[2020-11-17] MEDS: MIDODRINE 5 MG TAB PO SCH ×2 (12:20→17:20)
[2020-11-17] MEDS ORDERED: MIDODRINE 5 MG TAB PO SCH (12:30)
--- NOTE | 2020-11-17 13:25 | CONS ---
CONSULTATION REASON FOR CONSULT: Chronic kidney disease. HISTORY OF PRESENT ILLNESS: The patient is a 80-year-old female with history of chronic kidney disease secondary to biopsy-proven amyloidosis in 2017 with trial of therapy at that time which was discontinued eventually secondary to significant side effects from chemotherapy. The patient's renal function has progressed with serum creatinine now staying mostly about 3 mg/dL. She has underlying severe orthostatic hypotension and was readmitted this time with history of fall. Her blood pressure was low with 77 systolic earlier this morning as well. The patient was on Lasix at home. She denied any nausea, although she admitted to an episode of diarrhea with large amount of fluid loss. She denied chest pains. No fever or chills. No abdominal pain. PAST MEDICAL HISTORY: Asthma, hyperlipidemia, osteoarthritis, rheumatoid arthritis, history of breast cancer, orthostatic hypotension, amyloidosis, CKD. PAST SURGICAL HISTORY: , left breast lumpectomy, retinal surgery, left ankle surgery, bilateral knee arthroplasty, cataract surgery, knee arthroscopy. SOCIAL HISTORY: Negative for smoking, drug abuse or alcohol abuse. MEDICATIONS: Medications prior to admission included vitamin D2, Lipitor, Pepcid, fludrocortisone, sodium, Pataday for eyes. ALLERGIES: ALLERGIES ARE MULTIPLE. PLEASE SEE CHART. REVIEW OF SYSTEMS: As per HPI. Other systems negative. EXAMINATION: Comfortable, awake, not in any acute distress. Blood pressure this morning dropped from 146/77, sitting to 77/45, standing. Heart rate 83 per minute. She is afebrile. Examination of the heart S1, S2. Examination of the lungs, bilateral breath sounds are heard. Abdomen is soft, nontender. Examination of lower extremities shows no evidence of edema. INSURANCE RISK MANAGER exam grossly intact. LAB: Show sodium 133, potassium 3.6, BUN 55, creatinine 3.5, hemoglobin 9.8 g/dL. ASSESSMENT: 1. Acute kidney injury, prerenal, currently maintained on IV fluids. 2. Severe orthostatic hypotension most likely associated with underlying amyloidosis. The patient had not taken her midodrine. We will resume her midodrine and resume her Florinef as well. Continue with support stockings. 3. Hypokalemia, status post replacement. 4. Chronic kidney disease, stage 4. Baseline creatinine around 3 secondary to biopsy- proven amyloidosis 2017 status post initial therapy which was then discontinued secondary to severe neuropathy. The patient is follows with hematology out of town. PLAN: Continue with midodrine. Resume Florinef. Hold Lasix. Continue with IV fluids for now. Repeat labs in a.m. MMALEXAL / IJN: [id number] /
--- NOTE | 2020-11-17 17:01 | P.CRDCN ---
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 She follows in the office with Dr Cee. We have been asked to see in consultation for syncope. Over the previous couple of months she has had frequent episodes of syncope at home. She was recently admitted approximately a week and a half ago for similar episodes of syncope and had workup with EKG showing trifascicular block however no significant bradyarrhythmias noted. There was consideration of pacemaker however majority of her symptoms appear related to when she is standing and therefore patient underwent tilt table testing which showed traumatic drop in blood pressure down to the 40s with patient losing consciousness. Therefore patient was recommended for compression stockings, high salt diet, staying hydrated. Patient had episode 2 days ago where she had been getting up to go the bathroom as she was having some diarrhea. She got up somewhat fast and then began to feel lightheaded and lost consciousness. She therefore called EMS and presented to emergency department. She has still been feeling somewhat dizzy at times. She has been receiving IV fluids. Patient has had intermittent episodes of hypertension with blood pressures up to the 190s over 100s however she has been intolerant of much blood pressure medications as this drops or pressure to much. Blood pressures currently have been well controlled. [facility]up in the [facility] showed Hemoglobin 10.3, white blood cell count 5.8, platelets 184, sodium 134, potassium 3.0, creatinine 3.6, troponin 0.09, 0.08, 0.08. EKG showed sinus rhythm, first-degree AV block, left anterior fascicular block and right bundle branch block, nonspecific ST, T-wave abnormalities. Patient states she did not get much sleep yesterday and had a another near syncopal episode this morning while walking to bathroom where she had to be held by the nursing staff. She is undergoing social workup in terms of being placed in extended stay facility or somewhere where she can be monitored closely. REVIEW OF SYSTEMS At the time of my exam: CONSTITUTIONAL: Denies fever or chills. CARDIOVASCULAR: Denies chest pain, shortness of breath, orthopnea, PND or palpitations. RESPIRATORY: Denies cough. GASTROINTESTINAL: Denies abdominal pain, diarrhea, constipation, nausea or vomiting. MUSCULOSKELETAL: Denies myalgias. NEUROLOGIC: Denies numbness, tingling or weakness. ENDOCRINE: Denies fatigue, weight change, polydipsia or polyurina. GENITOURINARY: Denies burning, hematuria or urgency with micturation. HEMATOLOGIC: Denies history of anemia or bleeding. PHYSICAL EXAMINATION Vital signs reviewed. CONSTITUTIONAL: No apparent distress. HEENT: Head is normocephalic. Pupils are equal, round. Sclerae anicteric. Mucous membranes of the mouth are moist. No JVD. No carotid bruit. CHEST EXAMINATION: Lungs are clear to auscultation. No chest wall tenderness is noted on palpation or with deep breathing. HEART EXAMINATION: Regular rate and rhythm. S1, S2 heard. No murmurs, gallops or rub. ABDOMEN: Soft, nontender. Positive bowel sounds. EXTREMITIES: 2+ peripheral pulses, no lower extremity edema and no calf tenderness. NEUROLOGIC EXAMINATION: Patient is awake, alert and oriented x3. ASSESSMENT Trifascicular block Syncope, recurrent Orthostatic hypotension Possibly left basal ganglia remote infarct Chronic kidney disease secondary to amyloidosis Hyponatremia Dyslipidemia History of breast cancer status post lumpectomy PLAN Agree with increasing Midrin and monitor response. Continue with IV hydration, avoid dehydration such as with her diarrhea. Discussed going from lying position to standing position very slowly. Continue with compression stockings and discussed above the knee compression stockings. Patient may also benefit from an abdominal binder. Avoid any preload or afterload reducing agents. Continue Florinef. High salt intake. May consider further workup of cardiac amyloidosis as there is no some treatment for this however majority of symptoms related to her autonomic dysautonomia. Continue to monitor HR's however triascicular block does not appear to be causing her lightheadedness. Past Medical History Past Medical History: Asthma, Cancer, Hyperlipidemia, Osteoarthritis (OA), Rheumatoid Arthritis (RA), Syncope Additional Past Medical History / Comment(s): 2016 L breast cancer with lumpectomy, 2016 amloidosis with chemotherapy and numbness/tingling bilateral hands/feet from chemo, bilateral leg weakness especially R leg, havfever, sinus problems, generalized arthritis, RA also affects eyes soft tissue, migraines, hypothyroid, May 20- pt wearing holer monitor History of Any Multi-Drug Resistant Organisms: None Reported Past Surgical History: Breast Surgery, Section, Joint Replacement, Orthopedic Surgery, Tonsillectomy Additional Past Surgical History / Comment(s): Bilateral breast biopsies, L breast lumpectomy, bone marrow aspiration, renal biopsy, multiple D&Cs, R eye r etinal surgery, bilateral cataract removals, bilateral blepharoplasties, colonoscopy, L ankle ORIF, L knee arthroscopy, bilateral total knee arthroplasties. Past Anesthesia/Blood Transfusion Reactions: Motion Sickness Additional Past Anesthesia/Blood Transfusion Reaction / Comment(s): motion sickness as child Past Psychological History: Anxiety, Depression Additional Psychological History / Comment(s): Pt resides in a condo. She orders meals thru [employer]. She does not drive, a neighbor takes her places. Smoking Status: Never smoker Past Alcohol Use History: None Reported Past Drug Use History: None Reported - Past Family History Mother Family Medical History: Cancer Additional Family Medical History / Comment(s): Mother had breast cancer. Father Family Medical History: Coronary Artery Disease (CAD) Medications and Allergies Home Medications Medication Instructions Recorded Confirmed Type Ergocalciferol [Vitamin D2 50,000 unit PO Q14D 05/15/17 11/17/20 History (DRISDOL)] Atorvastatin [Lipitor] 40 mg PO HS 11/03/20 11/17/20 History Famotidine [Pepcid] 20 mg PO HS 11/03/20 11/17/20 History Fludrocortisone Acetate 0.1 mg PO Q48H 11/03/20 11/17/20 History Olopatadine HCl [Pataday] 1 drop BOTH EYES DAILY 11/03/20 11/17/20 History Dorzolamide 2% [Trusopt 2%] 1 drop RIGHT EYE BID 11/04/20 11/17/20 History Midodrine [ProAmatine] 10 mg PO AC-TID #30 tab 11/08/20 11/17/20 Rx Acetaminophen Tab [Tylenol Tab] 500 mg PO Q6H PRN 11/17/20 11/17/20 History Albuterol Inhaler [Ventolin Hfa 2 puff INHALATION RT-QID PRN 11/17/20 11/17/20 History Inhaler] Calcium Carbonate [Calcium] 600 mg PO DAILY 11/17/20 11/17/20 History Magnesium Chloride W/Calcium 2 tab PO DAILY 11/17/20 11/17/20 History Metoprolol Succinate (ER) [Toprol 50 mg PO BID 11/17/20 11/17/20 History Xl] Multivitamins, Thera [Multivitamin 1 tab PO DAILY 11/17/20 11/17/20 History (formulary)] Propylene Glycol/Peg 400 [Systane 1 drop BOTH EYES QID PRN 11/17/20 11/17/20 History Ultra 0.4-0.3% Eye Drp] guaiFENesin SYRUP 100MG/5ML 200 - 400 mg PO Q4H PRN 11/17/20 11/17/20 History [Robitussin] Allergies Allergy/AdvReac Type Severity Reaction Status Date / Time adhesive tape Allergy PEELS OFF Verified 11/16/20 10:59 SKIN aspirin Allergy Unknown Verified 11/16/20 10:59 bacitracin Allergy Rash/Hives Verified 11/16/20 10:59 ciprofloxacin [From Cipro] Allergy Unknown Verified 11/16/20 10:59 Sulfa (Sulfonamide Allergy Unknown Verified 11/16/20 10:59 Antibiotics) zinc oxide Allergy Rash/Hives Verified 11/16/20 10:59 codeine AdvReac Hallucinati Verified 11/16/20 10:59 ons NSAIDS (Non-Steroidal AdvReac CAUSED Verified 11/16/20 10:59 Anti-Inflamma BLEEDING ULCER prednisone AdvReac "I WAS Verified 11/16/20 10:59 GOING A MILE A MINUTE" Physical Exam Vitals: Vital Signs Temp Pulse Pulse Pulse Resp BP BP 11/17/20 14:00 101 H 11/17/20 12:00 101 H 16 11/17/20 08:00 83 77 16 77/45 11/17/20 03:59 98 F 87 18 107/61 11/17/20 01:10 107 H 83 102 H 16 11/16/20 23:12 102 H 16 11/16/20 20:00 97.6 F 107 H 16 129/78 BP Pulse Ox 11/17/20 14:00 11/17/20 12:00 132/75 11/17/20 08:00 146/77 11/17/20 03:59 98 11/17/20 01:10 11/16/20 23:12 111/62 99 11/16/20 20:00 98 Intake and Output 11/17/20 11/17/20 11/17/20 06:59 14:59 22:59 Intake Total 100 Output Total 300 Balance -300 100 Intake: Oral 100 Output: Urine 300 Other: Voiding Method Toilet Toilet # Voids 1 1 Weight 51.5 kg Results 11/17/20 06:31 11/17/20 06:31 Cardiac Enzymes 11/17/20 Range/Units 06:31 AST 34 (14-36) U/L CBC 11/17/20 Range/Units 06:31 WBC 5.7 (3.8-10.6) k/uL RBC 2.95 L (3.80-5.40) m/uL Hgb 9.8 L (11.4-16.0) gm/dL Hct 28.3 L (34.0-46.0) % Plt Count 184 (150-450) k/uL Comprehensive Metabolic Panel 11/17/20 Range/Units 06:31 Sodium 133 L (137-145) mmol/L Potassium 3.6 (3.5-5.1) mmol/L Chloride 101 (98-107) mmol/L Carbon Dioxide 29 (22-30) mmol/L BUN 55 H (7-17) mg/dL Creatinine 3.52 H (0.52-1.04) mg/dL Glucose 85 (74-99) mg/dL Calcium 7.8 L (8.4-10.2) mg/dL AST 34 (14-36) U/L ALT 22 (4-34) U/L Alkaline Phosphatase 61 (38-126) U/L Total Protein 4.0 L (6.3-8.2) g/dL Albumin 1.9 L (3.5-5.0) g/dL Current Medications Generic Name Dose Route Start Last Admin Trade Name Freq PRN Reason Stop Dose Admin Acetaminophen 650 mg 11/16/20 10:17 Acetaminophen Tab 325 Mg Tab PO Q6HR PRN Mild Pain or Fever > 100.5 Artificial Tears 1 drops 11/17/20 09:49 Artificial Tears-Hypromellose Drops 15 Ml Btl BOTH EYES HS PRN DRY EYES Dorzolamide HCl 1 drops 11/17/20 21:00 Dorzolamide Hcl 2% Drops 10 Ml Btl RIGHT EYE BID [facility] Famotidine 20 mg 11/17/20 21:00 Famotidine 20 Mg Tab PO HS [facility] Fludrocortisone Acetate 0.1 mg 11/17/20 21:00 Fludrocortisone 0.1 Mg Tab PO BID [facility] Sodium Chloride 1,000 mls @ 75 mls/hr 11/16/20 10:00 11/17/20 00:48 Saline 0.9% IV Not Given .[id number] [facility] Ketotifen Fumarate 1 drops 11/18/20 09:00 Ketotifen 0.025% Ophth Drops 5 Ml Btl BOTH EYES BID [facility] Levothyroxine Sodium 25 mcg 11/18/20 06:30 Levothyroxine 25 Mcg Tab PO DAILY@0630 [facility] Midodrine 10 mg 11/17/20 12:30 11/17/20 12:20 Midodrine 5 Mg Tab PO 10 mg AC-TID [facility]LIN Administration Naloxone HCl 0.2 mg 11/16/20 10:17 Naloxone 0.4 Mg/Ml 1 Ml Vial IV Q2M PRN Opioid Reversal Trazodone HCl 50 mg 11/16/20 23:09 11/17/20 03:26 Trazodone Hcl 50 Mg Tab PO 50 mg HS PRN Administration Insomnia Intake and Output 11/17/20 11/17/20 11/17/20 06:59 14:59 22:59 Intake Total 100 Output Total 300 Balance -300 100 Intake: Oral 100 Output: Urine 300 Other: Voiding Method Toilet Toilet # Voids 1 1 Weight 51.5 kg 11/17/20 06:31 11/17/20 06:31
[2020-11-17] MEDS: DORZOLAMIDE HCL 2% DROPS 10 ML BTL RIGHT EYE SCH (20:42)
[2020-11-17] MEDS: FAMOTIDINE 20 MG TAB PO SCH ×2 (20:42→20:43)
[2020-11-17] MEDS: FLUDROCORTISONE 0.1 MG TAB PO SCH (20:43)
[2020-11-17] MEDS: ACETAMINOPHEN TAB 325 MG TAB PO PRN (20:44)
[2020-11-18] MEDS: SODIUM CHLORIDE 0.9% 1,000 ML IV SCH ×2 (06:42→20:50)
[2020-11-18] MEDS: MIDODRINE 5 MG TAB PO SCH ×3 (06:43→18:13)
[2020-11-18] MEDS: LEVOTHYROXINE 25 MCG TAB PO SCH (06:43)
[2020-11-18] MEDS: KETOTIFEN 0.025% OPHTH DROPS 5 ML BTL BOTH EYES SCH ×2 (08:36→20:50)
[2020-11-18] MEDS: DORZOLAMIDE HCL 2% DROPS 10 ML BTL RIGHT EYE SCH ×2 (08:45→20:50)
[2020-11-18] MEDS: FLUDROCORTISONE 0.1 MG TAB PO SCH ×2 (08:45→20:49)
--- NOTE | 2020-11-18 11:40 | PN ---
PROGRESS NOTE Patient is seen for followup for chronic kidney disease. She was admitted with history of fall and has severe orthostatic hypotension. The patient has underlying amyloidosis, which is most likely contributing to this autonomic neuropathy. She has been mostly in bed. This morning her IV is leaking and patient is upset about wet sheets. PHYSICAL EXAMINATION: On examination today, blood pressure was 161/91 lying, standing is 91/56, heart rate 85 per minute. She is afebrile. EXAMINATION OF THE HEART: S1, S2. EXAMINATION OF THE LUNGS: Bilateral breath sounds are heard. Abdomen is soft, nontender. Examination of lower extremities shows no evidence of edema. MILK BOTTLER exam grossly intact. LABS: Labs show from 09/17/2020, sodium 133, potassium 3.6, BUN 55, creatinine 3.5. ASSESSMENT: 1. Chronic kidney disease secondary to biopsy-proven amyloidosis in 2017 status post treatment with dexamethasone and bortezomib for amyloidosis, which was held secondary to severe neuropathy. The patient's renal function has slowly progressed with creatinine now at baseline of about 3.1-3.5 mg/dL. She will be seeing her primary dinkey mechanic as outpatient. However, she has been in the hospital mostly for severe orthostatic hypotension. Patient is maintained on Florinef as well as midodrine and support stockings were added as well. 2. Orthostatic hypotension secondary to autonomic neuropathy, most likely secondary to amyloidosis. 3. Hypothyroidism. PLAN: Continue with IV fluids. Continue with Florinef and midodrine. We can increase the dose of midodrine if the patient is not able to function secondary to persistent postural hypotension. MMODL / IJN: [id number] /
[2020-11-18] MEDS ORDERED: METOPROLOL TARTRATE 5 MG/5 ML VIAL IVP ONE (13:00)
--- NOTE | 2020-11-18 14:17 | P.PN ---
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 She follows in the office with Dr Cee. We have been asked to see in consultation for syncope. Over the previous couple of months she has had frequent episodes of syncope at home. She was recently admitted approximately a week and a half ago for similar episodes of syncope and had workup with EKG showing trifascicular block however no significant bradyarrhythmias noted. There was consideration of pacemaker however majority of her symptoms appear related to when she is standing and therefore patient underwent tilt table testing which showed traumatic drop in blood pressure down to the 40s with patient losing consciousness. Therefore patient was recommended for compression stockings, high salt diet, staying hydrated. Patient had episode 2 days ago where she had been getting up to go the bathroom as she was having some diarrhea. She got up somewhat fast and then began to feel lightheaded and lost consciousness. She therefore called EMS and presented to emergency department. She has still been feeling somewhat dizzy at times. She has been receiving IV fluids. Patient has had intermittent episodes of hypertension with blood pressures up to the 190s over 100s however she has been intolerant of much blood pressure medications as this drops or pressure to much. Blood pressures currently have been well controlled. Workup in the emergency department showed Hemoglobin 10.3, white blood cell count 5.8, platelets 184, sodium 134, potassium 3.0, creatinine 3.6, troponin 0.09, 0.08, 0.08. EKG showed sinus rhythm, first-degree AV block, left anterior fascicular block and right bundle branch block, nonspecific ST, T-wave abnormalities. 11/18/2020 Patient seen and examined sitting up in bed in no acute distress.v blood pressure supine is 114/73 and sitting is 123/76. She continues to be symptomatic with position changes. Heart rate elevated 125-130, appears regular on the monitor. GENERAL: Well-appearing, well-nourished and in no acute distress. NECK: Supple without JVD or thyromegaly. LUNGS: Breath sounds clear to auscultation bilaterally. Respiration equal and unlabored. No wheezes, rales or rhonchi. HEART: Regular rate and rhythm without murmurs, rubs or gallops. S1 and S2 heard. EXTREMITIES: Normal range of motion, no edema. No clubbing or cyanosis. Peripheral pulses intact. ASSESSMENT Orthostatic hypotension, symptomatic Syncope Trifascicular block Chronic kidney disease secondary to amyloidosis Dyslipidemia Hypokalemia, resolved Troponin leak secondary to chronic kidney disease PLAN Give lopressor 5 mg IV now and obtain EKG. Continue IV fluids, midodrine and florinef. Apply YOSI hose bilaterally. Ongoing blood pressure monitoring. Nurse Practitioner note has been reviewed, I agree with a documented findings and plan of care. Patient was seen and examined. Objective - Vital Signs Vital signs: Vital Signs Temp 97.7 F 11/18/20 12:05 Pulse 125 H 11/18/20 13:37 Resp 16 11/18/20 12:05 BP 123/76 11/18/20 13:37 Pulse Ox 99 11/18/20 12:05 Intake & Output 11/17/20 11/18/20 11/18/20 18:59 06:59 18:59 Intake Total 218 720 Balance 218 720 Weight 53 kg Intake: Oral 218 720 Other: Voiding Method Toilet Bedside Commode # Voids 3 1 1 # Bowel Movements 0 - Labs CBC & Chem 7: 11/17/20 06:31 11/17/20 06:31
--- NOTE | 2020-11-18 19:43 | PN ---
PROGRESS NOTE DATE OF SERVICE: 11/18/2020 CHIEF COMPLAINT: Syncope with chronic renal failure and amyloidosis. HISTORY OF PRESENT ILLNESS: This lady is doing fairly well. She is not complaining of any significant shortness of breath. However, her prognosis is poor based on her extremely poor and deteriorating renal function as well as her cardiomyopathy. She is in atrial fibrillation. Blood pressure is excellent. She has not had any syncope when she has been up and about so far. She was placed on a beta radha, which I would be concerned about, considering her trifascicular block and history of syncope. PHYSICAL EXAMINATION: Chest is quite clear. Cardiac exam is unremarkable except for atrial fibrillation and an S4. The abdomen is soft and nontender. She appears to be clinically ill. IMPRESSION: 1. Syncope. 2. Stage IV chronic kidney disease. 3. Amyloidosis. 4. Amyloid heart. PLAN: Progress activity and work toward a discharge plan. It is not clear that she will be able to live alone much longer. MMODL / IJN: [id number] /
--- NOTE | 2020-11-18 19:49 | HP ---
HISTORY AND PHYSICAL DATE OF SERVICE: 11/16/2020 CHIEF COMPLAINT: Syncope. HISTORY OF PRESENT ILLNESS: This is another admission for this 80-year-old white female who is deteriorating with chronic renal failure. She was at home and became lightheaded once again. She continues to have difficulty with orthostasis. She has been on midodrine and fludrocortisone and continues to have difficulty. Part of the problem is that her blood pressure elevates and she then is given an antihypertensive and she bottoms out. The other difficulty is that likely due to her amyloid heart, she can not respond to orthostasis. This could also be linked to autonomic insufficiency. Her kidney function is rapidly deteriorating and she is at stage IV. REVIEW OF SYSTEMS: Otherwise unremarkable. She denies any chest pain, injuries, neurologic problems, etc. Past medical history, family history, and personal and social histories are all otherwise unremarkable and unchanged from her recent admitting and discharge summaries. PHYSICAL EXAMINATION: Blood pressure is 101/50 with a pulse of 83 and irregularly irregular. Respirations are 30. In general she appeared to be pale and chronically ill. She is losing weight. Head, ears, eyes, nose, mouth and throat are normal. Chest demonstrates scattered rales. Cardiac exam demonstrates what sounds like atrial fibrillation with an S4. The abdomen is soft and nontender and extremities are normal. IMPRESSION: 1. Syncope. 2. Chronic renal failure. 3. Congestive heart failure. 4. Amyloidosis. PLAN: 1. Continue to adjust and change her medications. 2. Work on a discharge plan. She lives alone. MMODL / IJN: [id number] /
--- NOTE | 2020-11-18 20:04 | PN ---
PROGRESS NOTE DATE OF SERVICE: 11/17/2020 CHIEF COMPLAINT: Syncope, renal failure and heart failure. HISTORY OF PRESENT ILLNESS: This lady is doing fairly well. She is comfortable. Blood pressures are quite stable at this time. She is being seen by Nephrology. PHYSICAL EXAMINATION: She remains pale and chronically ill in appearance. Chest demonstrates scattered rales. The cardiac exam finds her to be in atrial fibrillation with an S4. Her abdomen is soft and there are no masses. Extremities are normal. IMPRESSION: 1. Syncope. 2. Amyloidosis. 3. Amyloid heart. 4. Congestive heart failure. 5. Chronic renal failure. PLAN: Continue with IV fluids and monitoring of her vital signs while she is further evaluated by Nephrology. MMODL / IJN: [id number] /
[2020-11-19] MEDS: LEVOTHYROXINE 25 MCG TAB PO SCH (06:54)
[2020-11-19] MEDS: MIDODRINE 5 MG TAB PO SCH ×3 (06:54→17:45)
[2020-11-19] MEDS: SODIUM CHLORIDE 0.9% 1,000 ML IV SCH ×2 (06:55→10:33)
[2020-11-19] MEDS: KETOTIFEN 0.025% OPHTH DROPS 5 ML BTL BOTH EYES SCH ×2 (08:02→20:34)
[2020-11-19] MEDS: FLUDROCORTISONE 0.1 MG TAB PO SCH ×2 (08:03→20:34)
[2020-11-19] MEDS: DORZOLAMIDE HCL 2% DROPS 10 ML BTL RIGHT EYE SCH ×2 (08:09→20:34)
--- NOTE | 2020-11-19 11:53 | P.PN ---
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 She follows in the office with Dr Cee. We have been asked to see in consultation for syncope. Over the previous couple of months she has had frequent episodes of syncope at home. She was recently admitted approximately a week and a half ago for similar episodes of syncope and had workup with EKG showing trifascicular block however no significant bradyarrhythmias noted. There was consideration of pacemaker however majority of her symptoms appear related to when she is standing and therefore patient underwent tilt table testing which showed traumatic drop in blood pressure down to the 40s with patient losing consciousness. Therefore patient was recommended for compression stockings, high salt diet, staying hydrated. Patient had episode 2 days ago where she had been getting up to go the bathroom as she was having some diarrhea. She got up somewhat fast and then began to feel lightheaded and lost consciousness. She therefore called EMS and presented to emergency department. She has still been feeling somewhat dizzy at times. She has been receiving IV fluids. Patient has had intermittent episodes of hypertension with blood pressures up to the 190s over 100s however she has been intolerant of much blood pressure medications as this drops or pressure to much. Blood pressures currently have been well controlled. Workup in the emergency department showed Hemoglobin 10.3, white blood cell count 5.8, platelets 184, sodium 134, potassium 3.0, creatinine 3.6, troponin 0.09, 0.08, 0.08. EKG showed sinus rhythm, first-degree AV block, left anterior fascicular block and right bundle branch block, nonspecific ST, T-wave abnormalities. 11/19/2020 Pt is seen and examined sitting up in bed in no acute distress. She continues to feel light headed with position changes. Blood pressure at rest 132/89 supine, sitting 99/64 and standing 65/36. Heart rate 88. Sinus rhythm on the monitor. Maintained on midodrine and florineff. GENERAL: Well-appearing, well-nourished and in no acute distress. NECK: Supple without JVD or thyromegaly. LUNGS: Breath sounds clear to auscultation bilaterally. Respiration equal and unlabored. No wheezes, rales or rhonchi. HEART: Regular rate and rhythm without murmurs, rubs or gallops. S1 and S2 heard. EXTREMITIES: Normal range of motion, no edema. No clubbing or cyanosis. Peripheral pulses intact. ASSESSMENT Orthostatic hypotension, symptomatic Syncope Trifascicular block Chronic kidney disease secondary to amyloidosis Dyslipidemia Hypokalemia, resolved Troponin leak secondary to chronic kidney disease PLAN Continue IV fluids, midodrine and florinef. Apply YOSI hose bilaterally. Ongoing blood pressure monitoring. Advise to sit at the edge of the bed for a few minutes before standing. Increase PO salt intake. Difficult to manage this disease process. Nurse Practitioner note has been reviewed, I agree with a documented findings and plan of care. Patient was seen and examined. Objective - Vital Signs Vital signs: Vital Signs Temp 98.1 F 11/19/20 07:47 Pulse 88 11/19/20 07:47 Resp 18 11/19/20 07:47 BP 132/89 11/19/20 07:47 Pulse Ox 95 11/19/20 07:47 Intake & Output 11/18/20 11/19/20 11/19/20 18:59 06:59 18:59 Intake Total 1440 240 Output Total 300 Balance 1440 -60 Weight 49.5 kg Intake: Oral 1440 240 Output: Urine 300 Other: Voiding Method Bedside Commode # Voids 1 1 - Labs CBC & Chem 7: 11/17/20 06:31 11/17/20 06:31
[2020-11-19 12:30] LABS: Calcium 8.1 mg/dL (8.4-10.2); Potassium 3.4 mmol/L (3.5-5.1)
--- NOTE | 2020-11-19 12:41 | PN ---
PROGRESS NOTE Patient is seen for followup for chronic kidney disease. Patient's renal function had improved slightly since admission. We have not repeated labs last couple of days. She remains quite orthostatic, although slightly better today. Blood pressure this morning 132/89. However, on standing, it was down to 65/36. The patient did sit for a prolonged period of time yesterday and felt okay. She is maintained on midodrine, fludrocortisone, and currently getting IV fluids as well. PHYSICAL EXAMINATION: On examination today, patient appears euvolemic. No evidence of edema noted bilateral lower extremities. TRACK LABORER exam is grossly intact. Blood pressure was 132/89 supine and sitting was 99/64, standing 65/36. ASSESSMENT: 1. 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 2. Severe orthostatic hypotension related to autonomic dysfunction associated with amyloidosis, most likely. 3. Chronic kidney disease mineral bone disorder. 4. Hypothyroidism. PLAN: Continue with midodrine can increase to 4 times a day to enable patient to be more functional. Continue with fludrocortisone as well. Check labs today. MMODL / IJN: [id number] /
--- NOTE | 2020-11-19 16:28 | PN ---
PROGRESS NOTE CHIEF COMPLAINT: Syncope with chronic renal failure and congestive heart failure. HISTORY OF PRESENT ILLNESS: This lady is doing a little bit better. She feels slightly stronger than she did yesterday. She states she got a good night's sleep. We are working on a discharge plan for her, in that she will not likely be able to go home by herself. PHYSICAL EXAMINATION: Hydration and color are have improved slightly. Chest is quite clear. Cardiac exam is unremarkable. The abdomen is soft. Extremities are normal. IMPRESSION: 1. Syncope. 2. Amyloid kidney. 3. Amyloidosis. 4. Chronic renal failure. 5. Congestive heart failure. PLAN: Progress activity and continue to work toward a discharge plan. She is willing to go for rehab. MMODL / IJN: [id number] /
[2020-11-19] MEDS: FAMOTIDINE 20 MG TAB PO SCH (20:34)
[2020-11-20] MEDS: MIDODRINE 5 MG TAB PO SCH ×3 (06:21→17:16)
[2020-11-20] MEDS: LEVOTHYROXINE 25 MCG TAB PO SCH (06:21)
[2020-11-20] MEDS: FLUDROCORTISONE 0.1 MG TAB PO SCH ×2 (08:26→20:53)
[2020-11-20] MEDS: DORZOLAMIDE HCL 2% DROPS 10 ML BTL RIGHT EYE SCH ×2 (08:26→20:54)
[2020-11-20] MEDS: KETOTIFEN 0.025% OPHTH DROPS 5 ML BTL BOTH EYES SCH ×2 (08:26→20:54)
[2020-11-20] MEDS: SODIUM CHLORIDE 0.9% 1,000 ML IV SCH ×2 (08:29→22:35)
[2020-11-20] MEDS ORDERED: POTASSIUM CHLORIDE ER 20 MEQ TAB.ER PO STA (10:55)
--- NOTE | 2020-11-20 11:25 | P.PN ---
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 She follows in the office with Dr Cee. We have been asked to see in consultation for syncope. Over the previous couple of months she has had frequent episodes of syncope at home. She was recently admitted approximately a week and a half ago for similar episodes of syncope and had workup with EKG showing trifascicular block however no significant bradyarrhythmias noted. There was consideration of pacemaker however majority of her symptoms appear related to when she is standing and therefore patient underwent tilt table testing which showed traumatic drop in blood pressure down to the 40s with patient losing consciousness. Therefore patient was recommended for compression stockings, high salt diet, staying hydrated. Patient had episode 2 days ago where she had been getting up to go the bathroom as she was having some diarrhea. She got up somewhat fast and then began to feel lightheaded and lost consciousness. She therefore called EMS and presented to emergency department. She has still been feeling somewhat dizzy at times. She has been receiving IV fluids. Patient has had intermittent episodes of hypertension with blood pressures up to the 190s over 100s however she has been intolerant of much blood pressure medications as this drops or pressure to much. Blood pressures currently have been well controlled. Workup in the emergency department showed Hemoglobin 10.3, white blood cell count 5.8, platelets 184, sodium 134, potassium 3.0, creatinine 3.6, troponin 0.09, 0.08, 0.08. EKG showed sinus rhythm, first-degree AV block, left anterior fascicular block and right bundle branch block, nonspecific ST, T-wave abnormalities. 11/20/2020 Pt seen and evaluated sitting up in bed in no acute distress. Blood pressures are improving. She has ongoing orthostatic changes however blood pressure remains above 100 systolic. Florinef was increased yesterday. She has some concern regarding going to possible rehab. GENERAL: Well-appearing, well-nourished and in no acute distress. NECK: Supple without JVD or thyromegaly. LUNGS: Breath sounds clear to auscultation bilaterally. Respiration equal and unlabored. No wheezes, rales or rhonchi. HEART: Regular rate and rhythm without murmurs, rubs or gallops. S1 and S2 heard. EXTREMITIES: Normal range of motion, no edema. No clubbing or cyanosis. Peripheral pulses intact. 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 No further recommendations. Follow up with her primary manager internet upon discharge. Nurse Practitioner note has been reviewed, I agree with a documented findings and plan of care. Patient was seen and examined. Objective - Vital Signs Vital signs: Vital Signs Temp 97.6 F 11/20/20 11:12 Pulse 75 11/20/20 11:12 Resp 16 11/20/20 11:12 BP 174/102 11/20/20 11:12 Pulse Ox 98 11/20/20 11:12 Intake & Output 11/19/20 11/20/20 11/20/20 18:59 06:59 18:59 Intake Total 490 375 200 Output Total 700 500 Balance -210 -125 200 Weight 50.8 kg Intake: Intake, IV Titration 375 Amount Sodium Chloride 0.9% 1, 375 000 ml @ 75 mls/hr IV . [id number] [facility] Rx#:[id number] Oral 490 200 Output: Urine 700 500 Other: Voiding Method Bedside Commode Bedside Commode - Labs CBC & Chem 7: 11/17/20 06:31 11/19/20 11:54 Labs: Abnormal Lab Results - Last 24 Hours (Table) 11/19/20 Range/Units 11:54 Sodium 133 L (137-145) mmol/L Potassium 3.4 L (3.5-5.1) mmol/L BUN 48 H (7-17) mg/dL Creatinine 3.15 H (0.52-1.04) mg/dL Calcium 8.1 L (8.4-10.2) mg/dL
--- NOTE | 2020-11-20 11:40 | PN ---
PROGRESS NOTE Patient is seen for followup for chronic kidney disease. Her renal function is improved with creatinine down to 3.1 yesterday. Patient is maintained on IV fluids. She continues to have orthostatic hypotension, although this is slightly improved now. PHYSICAL EXAMINATION: On examination today, blood pressure 144/76 supine. It did go down to 100/58 standing and has not been as low as 60 like it was previously. Overall, patient states she is feeling slightly better today. On examination, heart sounds are heard and lung sounds are heard bilaterally. Abdomen is soft, nontender. Examination of lower extremities shows no edema. THIRD GRADE TEACHER exam grossly intact. LABS: Labs show sodium 133, potassium 3.4, BUN 48, creatinine 3.1. ASSESSMENT: 1. Acute kidney injury prerenal associated with hypotension and some degree of hypovolemia, currently improved. 2. 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 No plans for renal replacement therapy down the road. 3. Severe orthostatic hypotension most likely related to underlying autonomic dysfunction associated with amyloidosis. 4. Hypokalemia. We will replace. PLAN: Replace potassium. Continue with Florinef, midodrine, and IV fluids for now. Monitor labs periodically. MMODL / IJN: [id number] /
--- NOTE | 2020-11-20 19:03 | PN ---
PROGRESS NOTE DATE OF SERVICE: 11/20/2020 CHIEF COMPLAINT: Syncope, chronic renal failure, stage IV, and congestive heart failure. HISTORY OF PRESENT ILLNESS: This lady is doing reasonably well. Her blood pressure is fluctuating at times. There is concern about treating this, in that she is continuing to have problems with orthostasis, and then her blood pressure will return to normal. We are working on a discharge plan. PHYSICAL EXAMINATION: Chest is clear. Cardiac exam is normal. The abdomen is soft, nontender. IMPRESSION: 1. Orthostatic hypotension with syncope. 2. Amyloidosis. 3. 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 4. Chronic renal failure secondary to amyloid. 5. Depression. PLAN: Progress activity as much as possible and work on discharge plan. It is not clear if she will be going to a rehab facility or home. MMODL / IJN: [id number] /
[2020-11-20] MEDS: FAMOTIDINE 20 MG TAB PO SCH (20:53)
[2020-11-21] MEDS: MIDODRINE 5 MG TAB PO SCH ×3 (06:48→18:06)
[2020-11-21] MEDS: LEVOTHYROXINE 25 MCG TAB PO SCH (06:48)
[2020-11-21] MEDS: DORZOLAMIDE HCL 2% DROPS 10 ML BTL RIGHT EYE SCH ×2 (09:26→20:13)
[2020-11-21] MEDS: KETOTIFEN 0.025% OPHTH DROPS 5 ML BTL BOTH EYES SCH ×2 (09:26→20:13)
[2020-11-21] MEDS: FLUDROCORTISONE 0.1 MG TAB PO SCH ×2 (09:28→20:13)
[2020-11-21] MEDS ORDERED: ACETAMINOPHEN TAB 500 MG TAB PO PRN (10:26)
[2020-11-21] MEDS: SODIUM CHLORIDE 0.9% 1,000 ML IV SCH ×2 (13:19→23:32)
[2020-11-21] MEDS: FAMOTIDINE 20 MG TAB PO SCH (20:13)
--- NOTE | 2020-11-21 21:49 | PN ---
PROGRESS NOTE DATE OF SERVICE: 11/21/2020 CHIEF COMPLAINT: Hypotension, amyloidosis. HISTORY OF PRESENT ILLNESS: This lady is doing well. Her blood pressure is still fluctuating. She feels fairly well. We are now working on discharge plan. Family is not able to provide her with 24- hour care at home and will have to look into rehab facilities. Other than that, she is doing well. She has no complaints. PHYSICAL EXAMINATION: Her color and hydration are better. Her chest is clear. Cardiac exam is normal. Abdomen is soft, nontender. IMPRESSION: 1. Orthostatic hypotension. 2. Chronic renal failure. 3. Congestive heart failure. 4. Amyloidosis. PLAN: [facility] placement for rehab. MMODL / IJN: [id number] /
[2020-11-21 22:52] VITALS: TEMP 97.9
[2020-11-22] MEDS: LEVOTHYROXINE 25 MCG TAB PO SCH (06:12)
[2020-11-22] MEDS: MIDODRINE 5 MG TAB PO SCH ×3 (06:12→16:43)
[2020-11-22] MEDS: FLUDROCORTISONE 0.1 MG TAB PO SCH (07:54)
[2020-11-22] MEDS: DORZOLAMIDE HCL 2% DROPS 10 ML BTL RIGHT EYE SCH (07:56)
[2020-11-22] MEDS: KETOTIFEN 0.025% OPHTH DROPS 5 ML BTL BOTH EYES SCH (07:56)
[2020-11-22 10:44] VITALS: BMI 22.8
[2020-11-22] MEDS: ACETAMINOPHEN TAB 325 MG TAB PO PRN (11:01)
--- NOTE | 2020-11-22 12:00 | DS ---
DISCHARGE SUMMARY CHIEF COMPLAINT: General debility and failure to thrive. HISTORY OF PRESENT ILLNESS AND PHYSICAL EXAM: Details of this lady's history and physical can be found in the initial workup. COURSE IN THE HOSPITAL: After admission, she was placed on bedrest and seen in consultation by Neurology, Cardiology and Nephrology. It was determined that she had orthostatic episodes probably all related to her amyloidosis. Her kidney function continued to deteriorate due to amyloid kidney. She was taken off antihypertensives and blood pressure fluctuated somewhat, but generally returned to normal. She was able to get up and about, but she remains very weak and it was not felt that she could return home. Arrangements were made for [facility] to go to [facility] and she will be transferred there on the . FINAL DIAGNOSES: 1. Syncopal episode. 2. Chronic renal failure stage 4. 3. Amyloidosis. 4. Amyloid kidney. 5. Congestive heart failure secondary to amyloid. 6. Depression. 7. General debility and weakness. OPERATIONS: None. CONSULTATIONS: Physical Therapy, Neurology, Cardiology, Nephrology. She is improved. MMODL / IJN: [id number] /
[2020-11-22] MEDS: SODIUM CHLORIDE 0.9% 1,000 ML IV SCH (15:55)
[2020-11-22 17:17] VITALS: BP 165/86; PULSE 110; RESP 17
--- NOTE | 2020-11-22 19:03 | PN ---
PROGRESS NOTE The patient is seen for followup for chronic kidney disease. She was admitted stage IV secondary to biopsy-proven amyloidosis in 2017. The patient was not completely treated and treatment was discontinued secondary to severe neuropathy. Her renal function has been stable since then and there are no plans to pursue further treatment for the underlying amyloidosis and patient has decided not to proceed with renal replacement therapy as well. Her baseline creatinine has been around 3 mg/dL, most recently. Previously it was at about 1.9-2 mg/dL. On this admission, patient was admitted with severe orthostatic hypotension and falls most likely secondary to amyloidosis. Serum creatinine has improved from 3.6 on initial admission to 3.1 now. The patient is currently maintained on IV fluids, fludrocortisone and midodrine and has had some improvement in her blood pressures. She is at least able to sit for some time in a bedside chair. PHYSICAL EXAMINATION: On examination today, blood pressure 142/85, heart rate 108 per minute. She is afebrile. Examination of the heart S1, S2. Examination of the lungs, bilateral breath sounds are heard. Abdomen is soft, nontender. Examination of lower extremities shows no evidence of edema. HEAT AND FROST INSULATOR exam grossly intact. LAB: Show sodium of 133, potassium 3.4, chloride 106, CO2 is 22, BUN 48, creatinine 3.15. ASSESSMENT: 1. Acute kidney injury, prerenal currently improved with IV hydration. 2. Chronic kidney disease NKF stage IV secondary to amyloidosis, status post treatment with dexamethasone and initially for amyloidosis, but discontinued secondary to severe neuropathy. At this time, there are no plans for renal replacement therapy. 3. Severe orthostatic hypotension associated with autonomic neuropathy, most likely related to amyloidosis, currently asymptomatically improved. 4. Hypothyroidism. PLAN: Agree with physical therapy and possible discharge to rehab. MMODL / IJN: [id number] /
== END 2020-11-22 20:05 | DRG 546 ==
LOC: EC 08:27 → 3SCARD 10:17
PROVIDERS: ADMIT Family Medicine; ATTEND Family Medicine
DX: E85.9 Amyloidosis, unspecified (principal); E87.1 Hypo-osmolality and hyponatremia; I13.0 Hypertensive heart and chronic kidney disease with heart failure and stage 1 through stage 4 chronic kidney disease, or unspecified chronic kidney disease; I42.9 Cardiomyopathy, unspecified; I45.3 Trifascicular block; N17.9 Acute kidney failure, unspecified; N18.4 Chronic kidney disease, stage 4 (severe); D64.9 Anemia, unspecified; I95.1 Orthostatic hypotension; E03.9 Hypothyroidism, unspecified; E78.5 Hyperlipidemia, unspecified; E86.1 Hypovolemia; E87.6 Hypokalemia; F32.9 Major depressive disorder, single episode, unspecified; G62.9 Polyneuropathy, unspecified; G90.9 Disorder of the autonomic nervous system, unspecified; I44.0 Atrioventricular block, first degree; I48.91 Unspecified atrial fibrillation; I50.9 Heart failure, unspecified; J45.909 Unspecified asthma, uncomplicated; M06.9 Rheumatoid arthritis, unspecified; E83.9 Disorder of mineral metabolism, unspecified; R62.7 Adult failure to thrive; Z20.822 Contact with and (suspected) exposure to COVID-19; Z79.890 Hormone replacement therapy; Z79.899 Other long term (current) drug therapy; Z80.3 Family history of malignant neoplasm of breast; Z82.49 Family history of ischemic heart disease and other diseases of the circulatory system; Z85.3 Personal history of malignant neoplasm of breast; Z96.653 Presence of artificial knee joint, bilateral; Z98.42 Cataract extraction status, left eye; Z98.41 Cataract extraction status, right eye; Z92.21 Personal history of antineoplastic chemotherapy
CPT/HCPCS: 36415; 71046; 80048; 80053; 81001; 83735; 84484; 85025; 85610; 85730; 87635; 93005; 99285

== ENCOUNTER 2020-11-22 21:37 | Emergency (ER) | payer MEDICARE ==
[2020-11-22 21:42] VITALS: RESP 18; TEMP 98.7
[2020-11-22] MEDS ORDERED: DIPH,PERTUS(ACELL)TETVAC-LF 0.5 ML VIAL IM ONE (22:07)
--- NOTE | 2020-11-22 22:13 | ED ---
General Adult HPI - General Chief complaint: Fall Stated complaint: Fall Time Seen by Provider: 11/22/20 21:51 Source: patient, EMS, RN notes reviewed, old records reviewed Mode of arrival: EMS Limitations: physical limitation - History of Present Illness Initial comments: 80-year-old female presents status post fall with occipital head trauma, hematoma and bleeding. [facility] today after a hospital admission for recurrent syncope and fainting spells. She is currently on MidODRINE. She denies anticoagulation. Denies any other injury. Denies neck pain. She had been placed in a c-collar by EMS prior to arrival. - Related Data Home Medications Medication Instructions Recorded Confirmed Ergocalciferol [Vitamin D2 50,000 unit PO Q14D 05/15/17 11/22/20 (DRISDOL)] Atorvastatin [Lipitor] 40 mg PO HS 11/03/20 11/22/20 Famotidine [Pepcid] 20 mg PO HS 11/03/20 11/22/20 Fludrocortisone Acetate 0.1 mg PO Q48H 11/03/20 11/22/20 Olopatadine HCl [Pataday] 1 drop BOTH EYES DAILY 11/03/20 11/22/20 Dorzolamide 2% [Trusopt 2%] 1 drop RIGHT EYE BID 11/04/20 11/22/20 Acetaminophen Tab [Tylenol] 500 mg PO Q6H PRN 11/17/20 11/22/20 Albuterol Inhaler [Ventolin Hfa 2 puff INHALATION RT-QID PRN 11/17/20 11/22/20 Inhaler] Magnesium Chloride W/Calcium 2 tab PO DAILY 11/17/20 11/22/20 Multivitamins, Thera [Multivitamin 1 tab PO DAILY 11/17/20 11/22/20 (formulary)] Propylene Glycol/Peg 400 [Systane 1 drop BOTH EYES QID PRN 11/17/20 11/22/20 Ultra 0.4-0.3% Eye Drp] Previous Rx's Medication Instructions Recorded Midodrine [ProAmatine] 10 mg PO AC-TID #30 tab 11/08/20 Levothyroxine Sodium [Synthroid] 25 mcg PO DAILY@0630 tab 11/22/20 Allergies Allergy/AdvReac Type Severity Reaction Status Date / Time adhesive tape Allergy PEELS OFF Verified 11/22/20 21:42 SKIN aspirin Allergy Unknown Verified 11/22/20 21:42 bacitracin Allergy Rash/Hives Verified 11/22/20 21:42 ciprofloxacin [From Cipro] Allergy Unknown Verified 11/22/20 21:42 Sulfa (Sulfonamide Allergy Unknown Verified 11/22/20 21:42 Antibiotics) zinc oxide Allergy Rash/Hives Verified 11/22/20 21:42 codeine AdvReac Hallucinati Verified 11/22/20 21:42 ons NSAIDS (Non-Steroidal AdvReac CAUSED Verified 11/22/20 21:42 Anti-Inflamma BLEEDING ULCER prednisone AdvReac "I WAS Verified 11/22/20 21:42 GOING A MILE A MINUTE" Review of Systems ROS Statement: Those systems with pertinent positive or pertinent negative responses have been documented in the HPI. ROS Other: All systems not noted in ROS Statement are negative. Past Medical History Past Medical History: Asthma, Cancer, Hyperlipidemia, Osteoarthritis (OA), Rheumatoid Arthritis (RA), Syncope Additional Past Medical History / Comment(s): 2015 L breast cancer with lumpectomy, 2015 amloidosis with chemotherapy and numbness/tingling bilateral hands/feet from chemo, bilateral leg weakness especially R leg, havfever, sinus problems, generalized arthritis, RA also affects eyes soft tissue, migraines, hypothyroid, May 20- pt wearing holer monitor History of Any Multi-Drug Resistant Organisms: None Reported Past Surgical History: Breast Surgery, Section, Joint Replacement, Orthopedic Surgery, Tonsillectomy Additional Past Surgical History / Comment(s): Bilateral breast biopsies, L breast lumpectomy, bone marrow aspiration, renal biopsy, multiple D&Cs, R eye retinal surgery, bilateral cataract removals, bilateral blepharoplasties, colonoscopy, L ankle ORIF, L knee arthroscopy, bilateral total knee arthroplasties. Past Anesthesia/Blood Transfusion Reactions: Motion Sickness Additional Past Anesthesia/Blood Transfusion Reaction / Comment(s): motion sickness as child Past Psychological History: Anxiety, Depression Smoking Status: Never smoker Past Alcohol Use History: None Reported Past Drug Use History: None Reported - Past Family History Mother Family Medical History: Cancer Additional Family Medical History / Comment(s): Mother had breast cancer. Father Family Medical History: Coronary Artery Disease (CAD) General Exam Limitations: physical limitation General appearance: alert, in no apparent distress Head exam: Present: other (Occipital hematoma and no active bleeding, no repairable laceration.) Eye exam: Present: normal appearance, PERRL ENT exam: Present: normal exam Neck exam: Present: normal inspection. Absent: tenderness, meningismus Respiratory exam: Present: normal lung sounds bilaterally. Absent: respiratory distress, wheezes Cardiovascular Exam: Present: regular rate, normal rhythm GI/Abdominal exam: Present: soft. Absent: distended, tenderness, guarding Extremities exam: Present: normal inspection, normal capillary refill. Absent: pedal edema Neurological exam: Present: alert, oriented X3, CN II-XII intact. Absent: motor sensory deficit Psychiatric exam: Present: normal affect, normal mood Skin exam: Present: warm, dry Course Vital Signs 11/22/20 21:38 Temperature 98.7 F Pulse Rate 89 Respiratory 18 Rate Blood Pressure 132/96 O2 Sat by Pulse 100 Oximetry Medical Decision Making - Medical Decision Making 80-year-old female status post fall, occipital hematoma no laceration, bleeding controlled. Head CT negative for intracranial hemorrhage or mass effect. Cervical spine negative for fracture subluxation. Patient has had comprehensive workup. [facility]. Disposition Clinical Impression: Fall, Concussion, Hematoma Disposition: HOME SELF-CARE Condition: Good Instructions (If sedation given, give patient instructions): Fall Prevention for Older Adults (ED), Hematoma (ED), Contusion in Adults (ED) Is patient prescribed a controlled substance at d/c from ED?: No Referrals: Que Pablo MD [Primary Care Provider] - 1-2 days Time of Disposition: 23:15
--- NOTE | 2020-11-22 23:03 | CT ---
EXAMINATION TYPE: CT brain cspine wo con DATE OF EXAM: 11/22/2020 COMPARISON: CT brain November 03, 2020 HISTORY: fall Headache. Neck pain CT DLP: 1256.7 mGycm Automated exposure control for dose reduction was used. Exam performed without contrast. There is 1.5 x 2 cm area of fluid density in the insula left temporal lobe consistent with an old inf arct. There is no mass effect nor midline shift. There is no evidence of intracranial hemorrhage. The calvarium is intact. The skull base is intact. There is no evidence of cerebral edema. Cervical vertebra have normal alignment. Posterior elements are intact. There is degenerative spurrin g in the mid and lower cervical spine. There is hypertrophic mild multilevel facet arthropathy. There is no compression fracture. IMPRESSION: Multilevel spondylotic changes in the cervical spine. No fracture. 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 Mild cerebral atrophy. No change compared to ol d exam. No acute intracranial abnormality.
[2020-11-22 23:40] VITALS: BP 162/98; PULSE 98
== END 2020-11-23 00:46 | disposition home or self-care (01) ==
LOC: EC 21:37
DX: S06.0X9A Concussion with loss of consciousness of unspecified duration, initial encounter (principal); S00.03XA Contusion of scalp, initial encounter; E03.9 Hypothyroidism, unspecified; E78.5 Hyperlipidemia, unspecified; J45.909 Unspecified asthma, uncomplicated; M19.90 Unspecified osteoarthritis, unspecified site; M06.9 Rheumatoid arthritis, unspecified; Z23 Encounter for immunization; Z96.653 Presence of artificial knee joint, bilateral; Z86.73 Personal history of transient ischemic attack (TIA), and cerebral infarction without residual deficits; Z85.3 Personal history of malignant neoplasm of breast; Z80.3 Family history of malignant neoplasm of breast; Z82.49 Family history of ischemic heart disease and other diseases of the circulatory system; Z88.1 Allergy status to other antibiotic agents; Z88.2 Allergy status to sulfonamides; Z88.5 Allergy status to narcotic agent; Z88.6 Allergy status to analgesic agent; Z88.8 Allergy status to other drugs, medicaments and biological substances; W19.XXXA Unspecified fall, initial encounter
CPT/HCPCS: 70450; 72125; 90471; 90715; 99284

== ENCOUNTER 2020-12-16 00:48 | Inpatient (IN) | payer MEDICARE ==
--- NOTE | 2020-12-16 01:15 | ED ---
General Adult HPI - General Chief complaint: Syncope Stated complaint: Syncope Time Seen by Provider: 12/16/20 00:54 Source: patient, EMS Mode of arrival: EMS Limitations: no limitations - History of Present Illness Initial comments: This patient is a 80-year-old woman who presents by ambulance from an [facility] home to be evaluated for dizziness and suspect syncopal episode. Patient's symptoms all started tonight. When I go into the patient, she is denying pain, dyspnea, and other symptoms but states she is just not feeling right. She did have one episode of vomiting but states she is not having abdominal pain nor did she have any change in bowel movements tonight. Onset/Timin -: hour(s) Severity scale (1-10): 0 Associated Symptoms: nausea/vomiting, syncope Treatments Prior to Arrival: none - Related Data Home Medications Medication Instructions Recorded Confirmed Ergocalciferol [Vitamin D2 50,000 unit PO Q14D 05/15/17 11/22/20 (DRISDOL)] Atorvastatin [Lipitor] 40 mg PO HS 11/03/20 11/22/20 Famotidine [Pepcid] 20 mg PO HS 11/03/20 11/22/20 Fludrocortisone Acetate 0.1 mg PO Q48H 11/03/20 11/22/20 Olopatadine HCl [Pataday] 1 drop BOTH EYES DAILY 11/03/20 11/22/20 Dorzolamide 2% [Trusopt 2%] 1 drop RIGHT EYE BID 11/04/20 11/22/20 Acetaminophen Tab [Tylenol] 500 mg PO Q6H PRN 11/17/20 11/22/20 Albuterol Inhaler [Ventolin Hfa 2 puff INHALATION RT-QID PRN 11/17/20 11/22/20 Inhaler] Magnesium Chloride W/Calcium 2 tab PO DAILY 11/17/20 11/22/20 Multivitamins, Thera [Multivitamin 1 tab PO DAILY 11/17/20 11/22/20 (formulary)] Propylene Glycol/Peg 400 [Systane 1 drop BOTH EYES QID PRN 11/17/20 11/22/20 Ultra 0.4-0.3% Eye Drp] Previous Rx's Medication Instructions Recorded Midodrine [ProAmatine] 10 mg PO AC-TID #30 tab 11/08/20 Levothyroxine Sodium [Synthroid] 25 mcg PO DAILY@0630 tab 11/22/20 Allergies Allergy/AdvReac Type Severity Reaction Status Date / Time adhesive tape Allergy PEELS OFF Verified 11/22/20 21:42 SKIN aspirin Allergy Unknown Verified 11/22/20 21:42 bacitracin Allergy Rash/Hives Verified 11/22/20 21:42 ciprofloxacin [From Cipro] Allergy Unknown Verified 11/22/20 21:42 Sulfa (Sulfonamide Allergy Unknown Verified 11/22/20 21:42 Antibiotics) zinc oxide Allergy Rash/Hives Verified 11/22/20 21:42 codeine AdvReac Hallucinati Verified 11/22/20 21:42 ons NSAIDS (Non-Steroidal AdvReac CAUSED Verified 11/22/20 21:42 Anti-Inflamma BLEEDING ULCER prednisone AdvReac "I WAS Verified 11/22/20 21:42 GOING A MILE A MINUTE" Review of Systems ROS Statement: Those systems with pertinent positive or pertinent negative responses have been documented in the HPI. ROS Other: All systems not noted in ROS Statement are negative. Constitutional: Reports: weakness. Denies: fever Eyes: Denies: vision change Respiratory: Denies: cough, dyspnea Cardiovascular: Reports: syncope. Denies: chest pain, palpitations, orthopnea Gastrointestinal: Reports: vomiting. Denies: abdominal pain, nausea, diarrhea, hematemesis, melena, hematochezia Genitourinary: Denies: dysuria Musculoskeletal: Denies: back pain Skin: Denies: rash Neurological: Denies: headache Past Medical History Past Medical History: Asthma, Cancer, Hyperlipidemia, Osteoarthritis (OA), R heumatoid Arthritis (RA), Syncope Additional Past Medical History / Comment(s): 2016 L breast cancer with lumpectomy, 2016 amloidosis with chemotherapy and numbness/tingling bilateral hands/feet from chemo, bilateral leg weakness especially R leg, havfever, sinus problems, generalized arthritis, RA also affects eyes soft tissue, migraines, hypothyroid, May 20- pt wearing holer monitor History of Any Multi-Drug Resistant Organisms: None Reported Past Surgical History: Breast Surgery, Section, Joint Replacement, Orthopedic Surgery, Tonsillectomy Additional Past Surgical History / Comment(s): Bilateral breast biopsies, L breast lumpectomy, bone marrow aspiration, renal biopsy, multiple D&Cs, R eye retinal surgery, bilateral cataract removals, bilateral blepharoplasties, colonoscopy, L ankle ORIF, L knee arthroscopy, bilateral total knee arthroplasties. Past Anesthesia/Blood Transfusion Reactions: Motion Sickness Additional Past Anesthesia/Blood Transfusion Reaction / Comment(s): motion sickness as child Past Psychological History: Anxiety, Depression Smoking Status: Never smoker Past Alcohol Use History: Occasional Past Drug Use History: None Reported - Past Family History Mother Family Medical History: Cancer Additional Family Medical History / Comment(s): Mother had breast cancer. Father Family Medical History: Coronary Artery Disease (CAD) General Exam Limitations: no limitations General appearance: alert, in no apparent distress Head exam: Present: atraumatic, normocephalic Eye exam: Present: normal appearance. Absent: scleral icterus, conjunctival injection ENT exam: Present: normal oropharynx Respiratory exam: Present: normal lung sounds bilaterally. Absent: respiratory distress, wheezes, rales, rhonchi, stridor Cardiovascular Exam: Present: regular rate, normal rhythm, normal heart sounds. Absent: systolic murmur, diastolic murmur, rubs, gallop GI/Abdominal exam: Present: soft. Absent: distended, tenderness, guarding, rebound, rigid, mass Extremities exam: Present: normal inspection, normal capillary refill. Absent: pedal edema, calf tenderness Back exam: Present: normal inspection. Absent: CVA tenderness (R), CVA te nderness (L) Neurological exam: Present: alert, CN II-XII intact. Absent: motor sensory deficit Skin exam: Present: warm, dry, intact, normal color. Absent: rash Course Vital Signs 12/16/20 12/16/20 00:51 02:00 Temperature 98 F Pulse Rate 80 108 H Respiratory 16 16 Rate Blood Pressure 111/98 124/87 O2 Sat by Pulse 98 98 Oximetry EKG Findings - EKG Results: EKG: interpreted by BETHANY Medical Decision Making - Lab Data Result diagrams: 12/16/20 01:14 12/16/20 01:14 Lab Results 12/16/20 12/16/20 12/16/20 Range/Units 01:14 01:14 01:14 WBC 8.4 (3.8-10.6) k/uL RBC 3.53 L (3.80-5.40) m/uL Hgb 11.8 (11.4-16.0) gm/dL Hct 34.8 (34.0-46.0) % MCV 98.5 (80.0-100.0) fL MCH 33.4 (25.0-35.0) pg MCHC 33.9 (31.0-37.0) g/dL RDW 15.0 (11.5-15.5) % Plt Count 224 (150-450) k/uL MPV 9.0 Neutrophils % 78 % Lymphocytes % 14 % Monocytes % 5 % Eosinophils % 1 % Basophils % 1 % Neutrophils # 6.6 (1.3-7.7) k/uL Lymphocytes # 1.2 (1.0-4.8) k/uL Monocytes # 0.4 (0-1.0) k/uL Eosinophils # 0.1 (0-0.7) k/uL Basophils # 0.1 (0-0.2) k/uL PT 11.2 (9.0-12.0) sec INR 1.1 (<1.2) APTT 20.1 L (22.0-30.0) sec Sodium 135 L (137-145) mmol/L Potassium 6.2 H* (3.5-5.1) mmol/L Chloride 107 (98-107) mmol/L Carbon Dioxide 20 L (22-30) mmol/L Anion Gap 8 mmol/L BUN 50 H (7-17) mg/dL Creatinine 4.85 H (0.52-1.04) mg/dL Est GFR (CKD-EPI)AfAm 9 (>60 ml/min/1.73 sqM) Est GFR (CKD-EPI)NonAf 8 (>60 ml/min/1.73 sqM) Glucose 88 (74-99) mg/dL POC Glucose (mg/dL) (75-99) mg/dL POC Glu Marketing Production Coordinator ID Plasma Lactic Acid Vasiliy (0.7-2.0) mmol/L Calcium 9.3 (8.4-10.2) mg/dL Total Bilirubin 0.4 (0.2-1.3) mg/dL AST 50 H (14-36) U/L ALT 40 H (4-34) U/L Alkaline Phosphatase 92 (38-126) U/L Troponin I (0.000-0.034) ng/mL Total Protein 5.1 L (6.3-8.2) g/dL Albumin 2.6 L (3.5-5.0) g/dL Amylase 93 (30-110) U/L Lipase 150 (23-300) U/L 12/16/20 12/16/20 12/16/20 Range/Units 01:14 01:14 01:47 WBC (3.8-10.6) k/uL RBC (3.80-5.40) m/uL Hgb (11.4-16.0) gm/dL Hct (34.0-46.0) % MCV (80.0-100.0) fL MCH (25.0-35.0) pg MCHC (31.0-37.0) g/dL RDW (11.5-15.5) % Plt Count (150-450) k/uL MPV Neutrophils % % Lymphocytes % % Monocytes % % Eosinophils % % Basophils % % Neutrophils # (1.3-7.7) k/uL Lymphocytes # (1.0-4.8) k/uL Monocytes # (0-1.0) k/uL Eosinophils # (0-0.7) k/uL Basophils # (0-0.2) k/uL PT (9.0-12.0) sec INR (<1.2) APTT (22.0-30.0) sec Sodium (137-145) mmol/L Potassium (3.5-5.1) mmol/L Chloride (98-107) mmol/L Carbon Dioxide (22-30) mmol/L Anion Gap mmol/L BUN (7-17) mg/dL Creatinine (0.52-1.04) mg/dL Est GFR (CKD-EPI)AfAm (>60 ml/min/1.73 sqM) Est GFR (CKD-EPI)NonAf (>60 ml/min/1.73 sqM) Glucose (74-99) mg/dL POC Glucose (mg/dL) 94 (75-99) mg/dL POC Glu Marketing Production Coordinator ID Zac Kacey Plasma Lactic Acid Vasiliy 1.7 (0.7-2.0) mmol/L Calcium (8.4-10.2) mg/dL Total Bilirubin (0.2-1.3) mg/dL AST (14-36) U/L ALT (4-34) U/L Alkaline Phosphatase (38-126) U/L Troponin I 0.092 H* (0.000-0.034) ng/mL Total Protein (6.3-8.2) g/dL Albumin (3.5-5.0) g/dL Amylase (30-110) U/L Lipase (23-300) U/L Disposition Clinical Impression: Syncope, Elevated troponin, Hyperkalemia, Acute on chronic kidney failure Disposition: ADMITTED IP TO THIS HOSP Condition: Poor Referrals: Que Pablo MD [Primary Care Provider] - 1-2 days
--- NOTE | 2020-12-16 01:36 | XR ---
EXAM: XR Chest, 2 Views CLINICAL HISTORY: altered mental status TECHNIQUE: Frontal and lateral views of the chest. COMPARISON: 11/16/2020 FINDINGS: Lungs: Unremarkable. No consolidation. Pleural space: Unremarkable. No pneumothorax. Mediastinum: Unremarkable. Bones/joints: No acute findings IMPRESSION: No acute findings or change
[2020-12-16 01:49] LABS: Glucose,Whole Blood 94 mg/dL (75-99)
[2020-12-16 01:54] LABS: Basophils # (A) 0.1 k/uL (0-0.2); Basophils % (A) 1 %; Eosinophils # (A) 0.1 k/uL (0-0.7); Eosinophils % (A) 1 %; HCT 34.8 % (34.0-46.0); HGB 11.8 gm/dL (11.4-16.0); Lymphocytes # (A) 1.2 k/uL (1.0-4.8); Lymphocytes % (A) 14 %; MCH 33.4 pg (25.0-35.0); MCHC 33.9 g/dL (31.0-37.0); MCV 98.5 fL (80.0-100.0); Monocytes # (A) 0.4 k/uL (0-1.0); Monocytes % (A) 5 %; Neutrophils # (A) 6.6 k/uL (1.3-7.7); Neutrophils % (A) 78 %; Platelet Count 224 k/uL (150-450); RBC 3.53 m/uL (3.80-5.40); WBC 8.4 k/uL (3.8-10.6)
[2020-12-16 02:16] LABS: INR 1.1 (<1.2); Prothrombin Time 11.2 sec (9.0-12.0)
[2020-12-16 02:18] LABS: Albumin 2.6 g/dL (3.5-5.0); Calcium 9.3 mg/dL (8.4-10.2); Total Bilirubin 0.4 mg/dL (0.2-1.3); Total Protein 5.1 g/dL (6.3-8.2)
--- NOTE | 2020-12-16 02:20 | CT ---
EXAM: CT Head Without Intravenous Contrast CLINICAL HISTORY: Altered mental status TECHNIQUE: Axial computed tomography images of the head/brain without intravenous contrast. CTDI is 49.17 mGy and DLP is 1064.4 mGy-cm. This CT exam was performed using one or more of the following dose reduction techniques: automated exposure control, adjustment of the mA and/or kV according to patient size, and/or use of iterative reconstruction technique. Coronal and sagittal reformatted images were created and reviewed. COMPARISON: 11/22/20 FINDINGS: Brain: Encephalomalacia versus neuroglial cyst in left basal ganglia/insular region, unchanged. No hemorrhage. No significant white matter disease. Ventricles: Unremarkable. No ventriculomegaly. Bones/joints: Unremarkable. No acute fracture. Soft tissues: Unremarkable. Sinuses: Unremarkable as visualized. No acute sinusitis. Mastoid air cells: Unremarkable as visualized. No mastoid effusion. Orbits: Bilateral cataract surgeries. IMPRESSION: No acute findings or substantial change
[2020-12-16 02:27] LABS: Partial Thromboplastin Time 20.1 sec (22.0-30.0)
[2020-12-16 02:31] LABS: Potassium 6.2 mmol/L (3.5-5.1)
[2020-12-16] MEDS ORDERED: SODIUM BICARB 8.4% 50 ML SYR (1 MEQ/ML) IV STA (02:36)
[2020-12-16] MEDS ORDERED: DEXTROSE 50% SYRINGE 50 ML IVP STA ×2 (02:36→08:53)
[2020-12-16] MEDS ORDERED: INSULIN REGULAR 100 UNIT/ML VIAL (IV) IV STA (02:36)
[2020-12-16] MEDS ORDERED: CALCIUM GLUCONATE 1 GM in SODIUM CHLORIDE 0.9% 100 ML IVPB ONE (02:45)
[2020-12-16] MEDS ORDERED: NITROGLYCERIN SL TABS 0.4 MG TAB SUBLINGUAL PRN (02:57)
[2020-12-16] MEDS ORDERED: SODIUM CHLORIDE 0.9% 1,000 ML IV SCH (03:00)
[2020-12-16] MEDS ORDERED: LORazepam 2 MG/ML INJ IM STA (03:51)
[2020-12-16 08:24] LABS: Potassium 6.1 mmol/L (3.5-5.1)
[2020-12-16] MEDS ORDERED: INSULIN REGULAR 100 UNIT/ML VIAL (IV) IV ONE (08:53)
[2020-12-16] MEDS: SODIUM CHLORIDE 0.9% 1,000 ML IV SCH ×2 (10:04→23:52)
[2020-12-16] MEDS ORDERED: ACETAMINOPHEN TAB 500 MG TAB PO PRN (11:05)
[2020-12-16] MEDS: CALCIUM PO SCH (11:13)
[2020-12-16] MEDS: MAGNESIUM CHLORIDE PO SCH (11:13)
[2020-12-16] MEDS: MIDODRINE 5 MG TAB PO SCH ×2 (11:53→17:32)
--- NOTE | 2020-12-16 15:24 | CONS ---
CONSULTATION REASON FOR CONSULT: Renal failure. 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 During her last admission to the hospital last month patient had stated that she did not want any renal replacement therapy down the road. She has had repeated admissions for episodes of syncope due to severe orthostatic hypotension. This admission, patient was admitted with mental status changes and another episode of syncope at the [facility] home. There is no history of diarrhea. She did have an episode of vomiting. No significant abdominal pain, fever or chills. The patient has been confused. She is currently in soft restraints. 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 PAST SURGICAL HISTORY: , breast biopsies, left breast lumpectomy, kidney biopsy, cataract surgeries, colonoscopies, left knee arthroscopy, bilateral total knee arthroplasties, history of anxiety, depression. SOCIAL HISTORY: Negative for smoking, drug abuse or alcohol abuse. MEDICATIONS: Medications prior to admission included vitamin D, Lipitor, Pepcid, Florinef, inhalers, midodrine, Synthroid. ALLERGIES: INCLUDE ADHESIVE TAPE, ASPIRIN, BACITRACIN, CIPRO, SULFA, ZINC, NSAIDS, PREDNISONE, which was mostly an adverse effect with jitteriness. PHYSICAL EXAMINATION: Patient is confused, awake. She is comfortable, not in any acute distress. Blood pressure 144/92. Heart rate 124 per minute. She is afebrile,. Examination of the heart S1, S2. Examination of the lungs, bilateral breath sounds are heard. Decreased breath sounds at bases. Abdomen is soft, nontender. Examination of lower extremities shows no evidence of edema. RUBBER COMPOUNDER FORMULATOR exam shows patient is confused. She is moving all 4 extremities, currently in soft restraints. LAB: Show sodium 137, potassium 6.1, chloride 109, CO2 is 23, BUN 52, creatinine 4.72. Hemoglobin was 11.8 yesterday. ASSESSMENT: 1. Acute kidney injury, most likely related to volume depletion. The patient also has severe orthostatic hypotension. At this admission, her blood pressure has been above 100 mmHg. This is laying down. I will resume IV fluids for now. Check bladder scan. Rule out urine retention. 2. Chronic kidney disease stage 5 with baseline creatinine of about 3 to 3.5 mg/dL now secondary to amyloidosis biopsy-proven status post treatment initially which was then held secondary to neuropathy. The patient has stated that she did not want any kind of renal replacement therapy on her last admission last month. 3. Mental status changes, possibly related to underlying uremia. 4. Hyperkalemia associated with acute kidney injury. Rule out urine retention. No active GI bleed noted. 5. Borderline elevated troponins. 6. Chronic kidney disease mineral bone disorder. PLAN: Add IV fluids. Check bladder scan. We will try to contact other family members regarding patient's decision regarding renal replacement therapy. She had clearly stated on her last admission that she did not want any kind of dialysis if her renal function got worse. Thank you for this consultation. We will continue to follow. SABRINA / PRAVIN: [id number] /
[2020-12-16 16:25] LABS: Appearance,Urine Clear (Clear); Color,Urine Light Yellow; PH, Urine 6.5 (5.0-8.0)
[2020-12-16 16:26] LABS: Bilirubin,Urine Negative (Negative); Blood,Urine Small (Negative); Glucose,Urine (UA) Trace (Negative); Ketones,Urine Negative (Negative); Leukocyte Esterase,Urine Negative (Negative); Nitrite,Urine Negative (Negative); Protein,Urine 3+ (Negative); RBC,Urine <1 /hpf (0-5); Urobilinogen,Urine <0.2 mg/dL (<2.0); WBC,Urine 1 /hpf (0-5)
--- NOTE | 2020-12-16 20:02 | HP ---
HISTORY AND PHYSICAL HISTORY OF PRESENT ILLNESS: This lady is rapidly deteriorating. She has been in the hospital recently for congestive heart failure and progressive renal failure. This is stage IV. She was discharged to the halfway [facility] on the [place] and then was discharged to [facility]. She apparently no sooner got there then her blood pressure started to drop once again and she started to fall. She was transferred to the emergency room where she was confused and her potassium was over 6. REVIEW OF SYSTEMS: Review of systems cannot be obtained. She is confused. Past medical history, family history, personal and social histories reveal that her biggest problem is amyloidosis. She has had carcinoma of the left breast in the past without recurrence. The remainder of her history is unremarkable. She is ALLERGIC TO NUMEROUS PRODUCTS INCLUDING XANAX, BACITRACIN, NSAIDS, SULFA, CODEINE, ASPIRIN, AND CIPRO. She does not smoke or drink. PHYSICAL EXAMINATION: Blood pressure is 99/62 with a pulse of 65, respirations of 20 and she is afebrile. In GENERAL she appeared to be chronically ill. She was pale. HEENT: Head, ears, eyes, nose, mouth and throat were normal. NECK veins not distended. Carotids normal. CHEST is clear. CARDIAC exam demonstrated sinus rhythm and no murmurs or extra sounds. ABDOMEN is soft, nontender. EXTREMITIES are normal. She had a bruise on the right wrist. NEUROLOGICALLY at time of exam, she was confused, but had no new lateralizing neurologic deficits. IMPRESSION: She is admitted to the hospital with diagnoses: 1. Mental status changes. 2. Frequent falling. 3. Hypotension. 4. 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 5. Amyloidosis. 6. Congestive heart failure. PLAN: 1. Bedrest. 2. IV fluids. 3. Frequent monitoring of her neurologic exam and vital signs. 4. Neurology consult. 5. Nephrology consult. 6. Discharge planning. MMODL / IJN: [id number] /
[2020-12-16] MEDS: FAMOTIDINE 20 MG TAB PO SCH (20:14)
[2020-12-16] MEDS: DORZOLAMIDE HCL 2% DROPS 10 ML BTL RIGHT EYE SCH (20:14)
[2020-12-17] MEDS: LEVOTHYROXINE 25 MCG TAB PO SCH (05:59)
[2020-12-17] MEDS: MIDODRINE 5 MG TAB PO SCH ×3 (06:29→16:41)
[2020-12-17] MEDS: MAGNESIUM CHLORIDE PO SCH (08:01)
[2020-12-17] MEDS: CALCIUM PO SCH (08:01)
[2020-12-17] MEDS: DORZOLAMIDE HCL 2% DROPS 10 ML BTL RIGHT EYE SCH ×2 (08:02→20:41)
[2020-12-17] MEDS: FLUDROCORTISONE 0.1 MG TAB PO SCH (08:02)
[2020-12-17] MEDS ORDERED: ASPIRIN 325 MG TAB PO SCH (09:00)
[2020-12-17] MEDS ORDERED: DILTIAZEM DRIP BOLUS FROM BAG 1 MG SOLN IV ONE (09:26)
[2020-12-17 09:35] LABS: Calcium 8.5 mg/dL (8.4-10.2)
[2020-12-17] MEDS: DILTIAZEM 125 MG in SODIUM CHLORIDE 0.9% 100 ML IV SCH ×2 (10:21→20:41)
--- NOTE | 2020-12-17 11:16 | P.CRDCN ---
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 She follows in the office with Dr Petersen in [place]. We have been asked to see in consultation for syncope and elevated troponin. Wednesday she did a lot of walking with her son doing errands. On Saturday 12/16, she stood up and had episode of dizziness and lightheadedness. She believes she got up too fast. Apparently she lost consciousness. She states there is now way to notify staff when she falls. At the the facility shes at the they found her on the ground. Unknown down time. EMS was called and patient was put emergency department. EKG appears to be 2:1 atrial tachycardia, with right bundle branch block, HR 125, Repeat EKG this morning also appears to be atrial tachycardia, right bundle branch block, heart rate 115. nonspecific ST, T-wave abnormalities. Prior EKG in 11/16/20- EKG showed sinus rhythm, first-degree AV block, left anterior fascicular block and right bundle branch block, nonspecific ST, T-wave abnormalities. Laboratory data reviewed sodium 137, potassium 6.1, BUN 52, serum creatinine 4.7, troponin 0.09, 0.09, 0.08. Patient was started on IV fluids. Telemetry reviewed, she continues to be tachycardic HR 110-120. Patient is alert and oriented x 3. She states she is feeling better. Blood pressure 135/85, afebrile, maintaining oxygen saturations 98% on room air. She denies chest pain, shortness of breath, palpitations, nausea, vomiting, orthopnea or PND, abdominal pain. She is a non- diabetic. Most recent echocardiogram 11/06/2020- EF 55-60%, increased LV thickness that may be consistent with cardiac amyloidosis, RV is mildly enlarged, LA is mildly di lated, trace to mild mitral regurgitation, mild tricuspid regurgitation Orthostatics Lying 144/92 heart rate 106, blood pressure Sitting is 126/88, heart rate 124, no standing Blood pressure/HR Over the previous couple of months she has had frequent episodes of syncope at home. She was recently admitted approximately 3 times November 2020 for similar episodes of syncope and had workup with EKG showing trifascicular block however no significant bradyarrhythmias noted. There was consideration of pacemaker however majority of her symptoms appear related to when she is standing and therefore patient underwent tilt table testing which showed traumatic drop in blood pressure down to the 40s with patient losing consciousness. Therefore patient was recommended for compression stockings, high salt diet, staying hydrated. REVIEW OF SYSTEMS At the time of my exam: CONSTITUTIONAL: Denies fever or chills. CARDIOVASCULAR: Denies chest pain, shortness of breath, orthopnea, PND or palpitations. RESPIRATORY: Denies cough. GASTROINTESTINAL: Denies abdominal pain, diarrhea, constipation, nausea or v omiting. MUSCULOSKELETAL: Denies myalgias. NEUROLOGIC: +lightheadedness, dizziness, syncope, pre-syncope Denies numbness, tingling or weakness. ENDOCRINE: Denies fatigue, weight change, polydipsia or polyurina. GENITOURINARY: Denies burning, hematuria or urgency with micturation. HEMATOLOGIC: Denies history of anemia or bleeding. PHYSICAL EXAMINATION Vital signs reviewed. CONSTITUTIONAL: No apparent distress. HEENT: Head is normocephalic. Pupils are equal, round. Sclerae anicteric. Mucous membranes of the mouth are moist. No JVD. No carotid bruit. CHEST EXAMINATION: Lungs are clear to auscultation. No chest wall tenderness is noted on palpation or with deep breathing. HEART EXAMINATION: Regular Tachycardic rate and rhythm. S1, S2 heard. No murmurs, gallops or rub. ABDOMEN: Soft, nontender. Positive bowel sounds. EXTREMITIES: 2+ peripheral pulses, no lower extremity edema and no calf tenderness. NEUROLOGIC EXAMINATION: Patient is awake, alert and oriented x3. ASSESSMENT Atrial tachycardia Syncope, recurrent Orthostatic hypotension Chronic kidney disease secondary to amyloidosis Hyponatremia Dyslipidemia History of breast cancer status post lumpectomy PLAN -Start 10mg Cardizem bolus and IV drip -Nephrolology is following, Patient currently does not want hemodialysis -Continue midodrine -Continue with IV hydration -Continue cardiac telemetry -Discussed going from lying position to standing position very slowly. Continue with compression stockings and discussed above the knee compression stockings. Patient may also benefit from an abdominal binder. -We will obtain records from patient's cardiology Dr. Petersen -Further recommendations based on clinical course Past Medical History Past Medical History: Asthma, Cancer, Hyperlipidemia, Osteoarthritis (OA), Rheumatoid Arthritis (RA), Syncope Additional Past Medical History / Comment(s): 2015 L breast cancer with lumpectomy, 2016 amloidosis with chemotherapy and numbness/tingling bilateral hands/feet from chemo, bilateral leg weakness especially R leg, havfever, sinus problems, generalized arthritis, RA also affects eyes soft tissue, migraines, hypothyroid, May 20- pt wearing holer monitor History of Any Multi-Drug Resistant Organisms: None Reported Past Surgical History: Breast Surgery, Section, Joint Replacement, Orthopedic Surgery, Tonsillectomy Additional Past Surgical History / Comment(s): Bilateral breast biopsies, L breast lumpectomy, bone marrow aspiration, renal biopsy, multiple D&Cs, R eye retinal surgery, bilateral cataract removals, bilateral blepharoplasties, colonoscopy, L ankle ORIF, L knee arthroscopy, bilateral total knee arthro plasties. Past Anesthesia/Blood Transfusion Reactions: Motion Sickness Additional Past Anesthesia/Blood Transfusion Reaction / Comment(s): motion sick ness as child Smoking Status: Never smoker - Past Family History Mother Family Medical History: Cancer Additional Family Medical History / Comment(s): Mother had breast cancer. Father Family Medical History: Coronary Artery Disease (CAD) Medications and Allergies Home Medications Medication Instructions Recorded Confirmed Type Ergocalciferol [Vitamin D2 50,000 unit PO Q14D 05/15/17 12/16/20 History (DRISDOL)] Famotidine [Pepcid] 20 mg PO HS 11/03/20 12/16/20 History Fludrocortisone Acetate 0.1 mg PO Q48H 11/03/20 12/16/20 History Olopatadine HCl [Pataday] 1 drop BOTH EYES DAILY 11/03/20 12/16/20 History Dorzolamide 2% [Trusopt 2%] 1 drop RIGHT EYE BID 11/04/20 12/16/20 History Midodrine [ProAmatine] 10 mg PO AC-TID #30 tab 11/08/20 12/16/20 Rx Acetaminophen Tab [Tylenol] 500 mg PO Q6H PRN 11/17/20 12/16/20 History Albuterol Inhaler [Ventolin Hfa 2 puff INHALATION RT-QID PRN 11/17/20 12/16/20 History Inhaler] Magnesium Chloride W/Calcium 2 tab PO DAILY 11/17/20 12/16/20 History Multivitamins, Thera [Multivitamin 1 tab PO DAILY 11/17/20 12/16/20 History (formulary)] Propylene Glycol/Peg 400 [Systane 1 drop BOTH EYES QID PRN 11/17/20 12/16/20 History Ultra 0.4-0.3% Eye Drp] Levothyroxine Sodium [Synthroid] 25 mcg PO DAILY@0630 tab 11/22/20 12/16/20 Rx Atorvastatin Calcium [Lipitor] 40 mg PO DAILY 12/16/20 12/16/20 History Allergies Allergy/AdvReac Type Severity Reaction Status Date / Time adhesive tape Allergy PEELS OFF Verified 12/16/20 08:04 SKIN aspirin Allergy Unknown Verified 12/16/20 08:04 bacitracin Allergy Rash/Hives Verified 12/16/20 08:04 ciprofloxacin [From Cipro] Allergy Unknown Verified 12/16/20 08:04 Sulfa (Sulfonamide Allergy Unknown Verified 12/16/20 08:04 Antibiotics) zinc oxide Allergy Rash/Hives Verified 12/16/20 08:04 codeine AdvReac Hallucinati Verified 12/16/20 08:04 ons NSAIDS (Non-Steroidal AdvReac CAUSED Verified 12/16/20 08:04 Anti-Inflamma BLEEDING ULCER prednisone AdvReac "I WAS Verified 12/16/20 08:04 GOING A MILE A MINUTE" Physical Exam Vitals: Vital Signs Temp Pulse Pulse Pulse Resp BP BP 12/17/20 07:58 97.5 F L 111 H 18 135/85 12/17/20 04:00 113 H 18 132/86 12/17/20 00:00 114 H 18 133/79 12/16/20 20:00 97.9 F 110 H 18 142/84 12/16/20 18:21 12/16/20 16:50 97.6 F 113 H 16 153/106 12/16/20 14:40 18 12/16/20 11:49 111 H 18 12/16/20 09:38 97.7 F 124 H 106 H 18 126/88 12/16/20 09:35 18 BP Pulse Ox 12/17/20 07:58 98 12/17/20 04:00 97 12/17/20 00:00 97 12/16/20 20:00 98 12/16/20 18:21 132/89 12/16/20 16:50 97 12/16/20 14:40 12/16/20 11:49 132/98 99 12/16/20 09:38 144/92 97 12/16/20 09:35 Intake and Output 12/16/20 12/17/20 12/17/20 22:59 06:59 14:59 Intake Total 720 1480 Output Total 800 150 Balance -80 1330 Intake: Intake, IV Titration 1000 Amount Sodium Chloride 0.9% 1, 1000 000 ml @ 70 mls/hr IV . [id number] [facility] Rx#:[id number] Oral 720 480 Output: Urine 800 Straight 800 Post Void Residual 150 Other: Voiding Method Toilet Toilet # Voids 1 # Bowel Movements 1 Weight 58.967 kg 70.5 kg Results 12/16/20 01:14 12/17/20 08:55 Comprehensive Metabolic Panel 12/16/20 Range/Units 17:56 Potassium 5.6 H (3.5-5.1) mmol/L Current Medications Generic Name Dose Route Start Last Admin Trade Name Freq PRN Reason Stop Dose Admin Acetaminophen 500 mg 12/16/20 11:05 Acetaminophen Tab 500 Mg Tab PO Q6H PRN Pain Dorzolamide HCl 1 drops 12/16/20 21:00 12/17/20 08:02 Dorzolamide Hcl 2% Drops 10 Ml Btl RIGHT EYE 1 drops BID [facility] Administration Famotidine 20 mg 12/16/20 21:00 12/16/20 20:14 Famotidine 20 Mg Tab PO 20 mg HS [facility] Administration Fludrocortisone Acetate 0.1 mg 12/17/20 09:00 12/17/20 08:02 Fludrocortisone 0.1 Mg Tab PO 0.1 mg Q48H [facility] Administration Sodium Chloride 1,000 mls @ 70 mls/hr 12/16/20 09:00 12/16/20 23:52 Saline 0.9% IV 70 mls/hr .[id number] [facility] Administration Levothyroxine Sodium 25 mcg 12/17/20 06:30 12/17/20 05:59 Levothyroxine 25 Mcg Tab PO 25 mcg DAILY@0630 [facility] Administration Midodrine 10 mg 12/16/20 12:30 12/17/20 06:29 Midodrine 5 Mg Tab PO Not Given AC-TID [facility] Nitroglycerin 0.4 mg 12/16/20 02:57 Nitroglycerin Sl Tabs 0.4 Mg Tab SUBLINGUAL Q5M PRN Chest Pain Non-Formulary Medication 2 tab 12/16/20 11:15 12/17/20 08:01 Magnesium Chloride W/Calcium PO Not Given DAILY [facility] Intake and Output 12/16/20 12/17/20 12/17/20 22:59 06:59 14:59 Intake Total 720 1480 Output Total 800 150 Balance -80 1330 Intake: Intake, IV Titration 1000 Amount Sodium Chloride 0.9% 1, 1000 000 ml @ 70 mls/hr IV . [id number] [facility] Rx#:[id number] Oral 720 480 Output: Urine 800 Straight 800 Post Void Residual 150 Other: Voiding Method Toilet Toilet # Voids 1 # Bowel Movements 1 Weight 58.967 kg 70.5 kg 12/16/20 01:14 12/16/20 17:56
[2020-12-17 12:46] LABS: Chol/HDL Ratio 3.09; LDL Cholesterol,Calculated 96.6 mg/dL (0.0-131.0); VLDL Calculation 24.4 mg/dL (5.00-40.00)
--- NOTE | 2020-12-17 13:39 | PN ---
PROGRESS NOTE Patient is seen for followup for acute kidney injury on top of chronic kidney disease. The patient was admitted to the hospital with syncope, mental status changes. She has had some worsening of her renal function. The patient has underlying CKD stage 5 with previous creatinine around 3-3.5 mg/dL. She has mention previously that she did not want any kind of renal replacement therapy in case her renal function deteriorated further. Patient has also had urine retention for which she has had a straight catheterizations of about 800 mL at one time. It seems that she is currently voiding better and post- void residual is down to 150 mL. The patient is currently maintained on IV fluids. This morning her mentation is improved. PHYSICAL EXAMINATION: Blood pressure 135/85, heart rate 111 per minute. She is afebrile. Examination of the heart S1, S2. Examination of the lungs, bilateral breath sounds are heard. Abdomen is soft, nontender. Examination of lower extremities shows no significant edema. TOOL DISTRIBUTOR exam shows mentation improved. Patient is moving all 4 extremities. Some tremors are noted. LAB: Show sodium 135, potassium 5.0, chloride 111, CO2 is 21, BUN 48, creatinine 4.29. ASSESSMENT: 1. Chronic kidney disease with progressive renal failure with possible element of acute kidney injury. Currently maintained on IV fluids. Serum creatinine is about the same as yesterday. Patient is maintained on fluids and midodrine. 2. Atrial fibrillation with rapid ventricular response, currently on Cardizem drip. 3. History of severe orthostatic hypotension. 4. Hyperkalemia associated with acute kidney injury on top of chronic kidney disease as well as urine retention, improved post straight catheterization. 5. Hypothyroidism. PLAN: Continue with the midodrine and Florinef. Continue IV fluids and continue to monitor postvoid residual. Again no plans for renal replacement therapy as patient had declined renal replacement therapy previously. MMODL / IJN: [id number] /
--- NOTE | 2020-12-17 16:00 | P.CNNES ---
History of Present Illness Consult date: 12/17/20 Requesting physician: Que Pablo Reason for Consult: Altered mental status History of Present Illness: Patient is a 80-year-old female came to the hospital yesterday drafting technician at 12:48 AM by ambulance for evaluation of dizziness and suspect syncopal episode. Patient has history of recurrent syncopal spells in the past. Patient has history of amyloidosis, severe autonomic neuropathy. Patient states that she stood up, getting ready to go to the bathroom, got dizzy, lost consciousness and fell. She did not make it to the bathroom. Patient states that she laid there for some time before somebody saw her and EMS was called. Patient states that these dizzy spells, and syncopal spells are getting more frequent. It can happen 5 times a week she would pass out. Per EMS flow sheet, when they arrived, patient was sitting on the bathroom chair. Patient was alert but confused, which is baseline per staff. Patient had possible syncopal episode and dizziness. Her 12-lead EKG was unremarkable. Her blood glucose at the scene was 1 25 mg/dL. Her blood pressure was 161/89, pulse rate 56, respiration 18 and saturation 98%. Vital signs on arrival blood pressure 111/98, pulse rate 80, temperature 98.0. Patient had orthostatics checked in which her supine blood pressure was 144/92 with pulse of 106. On sitting up, blood pressure dropped to 126/88 and pulse went up to 124. CT head showed no acute findings or substantial change. Paranasal sinuses are clear. EKG shows undetermined rhythm. Right bundle branch block. Left anterior fascicular block. Chest x-ray showed no acute findings or change. Blood test shows normal CBC, normal PT/PTT, sodium was 135 potassium 6.2, BUN 50, creatinine 4.85. AST 50, ALT 40. Troponins minimally elevated. UA negative. Licona virus PCR negative. Patient denies any history of CVA. Review of Systems Patient has neuropathy in the feet. Patient has recurrent syncopal spells, dizziness. Denies loss of vision, double vision. No hoarseness, sore throat, dysphagia. Denies any chest pain, shortness of breath. Denies any wheezing or cough. No abdominal pain. No fever or chills. No rash. No dysuria, hematuria. Past Medical History Past Medical History: Asthma, Cancer, Hyperlipidemia, Osteoarthritis (OA), Rheumatoid Arthritis (RA), Syncope Additional Past Medical History / Comment(s): 2015 L breast cancer with lumpectomy, 2015 amloidosis with chemotherapy and numbness/tingling bilateral hands/feet from chemo, bilateral leg weakness especially R leg, havfever, sinus problems, generalized arthritis, RA also affects eyes soft tissue, migraines, hypothyroid, November 20- pt wearing holer monitor History of Any Multi-Drug Resistant Organisms: None Reported Past Surgical History: Breast Surgery, Section, Joint Replacement, Orthopedic Surgery, Tonsillectomy Additional Past Surgical History / Comment(s): Bilateral breast biopsies, L breast lumpectomy, bone marrow aspiration, renal biopsy, multiple D&Cs, R eye retinal surgery, bilateral cataract removals, bilateral blepharoplasties, colonoscopy, L ankle ORIF, L knee arthroscopy, bilateral total knee arthropla sties. Past Anesthesia/Blood Transfusion Reactions: Motion Sickness Additional Past Anesthesia/Blood Transfusion Reaction / Comment(s): motion sickness as child Smoking Status: Never smoker - Past Family History Mother Family Medical History: Cancer Additional Family Medical History / Comment(s): Mother had breast cancer. Father Family Medical History: Coronary Artery Disease (CAD) Medications and Allergies Home Medications Medication Instructions Recorded Confirmed Type Ergocalciferol [Vitamin D2 50,000 unit PO Q14D 05/15/17 12/16/20 History (DRISDOL)] Famotidine [Pepcid] 20 mg PO HS 11/03/20 12/16/20 History Fludrocortisone Acetate 0.1 mg PO Q48H 11/03/20 12/16/20 History Olopatadine HCl [Pataday] 1 drop BOTH EYES DAILY 11/03/20 12/16/20 History Dorzolamide 2% [Trusopt 2%] 1 drop RIGHT EYE BID 11/04/20 12/16/20 History Midodrine [ProAmatine] 10 mg PO AC-TID #30 tab 11/08/20 12/16/20 Rx Acetaminophen Tab [Tylenol] 500 mg PO Q6H PRN 11/17/20 12/16/20 History Albuterol Inhaler [Ventolin Hfa 2 puff INHALATION RT-QID PRN 11/17/20 12/16/20 History Inhaler] Magnesium Chloride W/Calcium 2 tab PO DAILY 11/17/20 12/16/20 History Multivitamins, Thera [Multivitamin 1 tab PO DAILY 11/17/20 12/16/20 History (formulary)] Propylene Glycol/Peg 400 [Systane 1 drop BOTH EYES QID PRN 11/17/20 12/16/20 History Ultra 0.4-0.3% Eye Drp] Levothyroxine Sodium [Synthroid] 25 mcg PO DAILY@0630 tab 11/22/20 12/16/20 Rx Atorvastatin Calcium [Lipitor] 40 mg PO DAILY 12/16/20 12/16/20 History Allergies Allergy/AdvReac Type Severity Reaction Status Date / Time adhesive tape Allergy PEELS OFF Verified 12/16/20 08:04 SKIN aspirin Allergy Unknown Verified 12/16/20 08:04 bacitracin Allergy Rash/Hives Verified 12/16/20 08:04 ciprofloxacin [From Cipro] Allergy Unknown Verified 12/16/20 08:04 Sulfa (Sulfonamide Allergy Unknown Verified 12/16/20 08:04 Antibiotics) zinc oxide Allergy Rash/Hives Verified 12/16/20 08:04 codeine AdvReac Hallucinati Verified 12/16/20 08:04 ons NSAIDS (Non-Steroidal AdvReac CAUSED Verified 12/16/20 08:04 Anti-Inflamma BLEEDING ULCER prednisone AdvReac "I WAS Verified 12/16/20 08:04 GOING A MILE A MINUTE" Physical Examination - Vital Signs Vital Signs: Vital Signs Temp Pulse Pulse Pulse Resp BP BP 12/17/20 07:58 97.5 F L 111 H 18 135/85 12/17/20 04:00 113 H 18 132/86 12/17/20 00:00 114 H 18 133/79 12/16/20 20:00 97.9 F 110 H 18 142/84 12/16/20 18:21 12/16/20 16:50 97.6 F 113 H 16 153/106 12/16/20 14:40 18 12/16/20 11:49 111 H 18 12/16/20 09:38 97.7 F 124 H 106 H 18 126/88 12/16/20 09:35 18 BP Pulse Ox 12/17/20 07:58 98 12/17/20 04:00 97 12/17/20 00:00 97 12/16/20 20:00 98 12/16/20 18:21 132/89 12/16/20 16:50 97 12/16/20 14:40 12/16/20 11:49 132/98 99 12/16/20 09:38 144/92 97 12/16/20 09:35 Intake and Output 12/16/20 12/17/20 12/17/20 22:59 06:59 14:59 Intake Total 720 1480 Output Total 800 150 Balance -80 1330 Intake: Intake, IV Titration 1000 Amount Sodium Chloride 0.9% 1, 1000 000 ml @ 70 mls/hr IV . [id number] [facility] Rx#:[id number] Oral 720 480 Output: Urine 800 Straight 800 Post Void Residual 150 Other: Voiding Method Toilet Toilet # Voids 1 # Bowel Movements 1 Weight 58.967 kg 70.5 kg Patient is an elderly female, in no acute distress. Patient has a slight flat affect. Patient states it is January 2021, but when I asked again, she states is December. She knows that she is in [facility] in [place] and name of the current president. Patient is alert awake oriented to time place and person. Speech and language functions are normal. Attention, concentration and fund of knowledge is adequate. Detail cognitive function testing deferred. On cranial examination, pupils are round and reacting to light, visual lockwood are full on confrontation, extraocular muscles are intact with no nystagmus. Face is symmetric, tongue protrudes to the midline. Palatal elevation and sensation normal, hearing and shoulder shrug normal, facial sensation normal. Shoulder shrug normal. On muscle strength testing, there is no pronator drift. Her strength is about 5-4+ in bilateral deltoid, in the digital media planner. Biceps and triceps are both 5. Hip flexion is 4+/5. Ankle dorsiflexion 3-4 bilaterally. Deep tendon reflexes are trace at the biceps, absent elsewhere. Plantars are flat. Sensory to touch is equal with no neglect. Cerebellar function showed no ataxia for [id number] testing. No dysdiadochokinesia. Tone and bulk of muscles normal. Gait not checked. On general examination, there is no carotid bruit or murmur, S1-S2 audible. Abdomen is soft nontender. Chest is clear. Peripheral pulses are present. No edema. Results - Laboratory Findings CBC and BMP: 12/16/20 01:14 12/17/20 08:55 Abnormal Lab Findings: Abnormal Labs 12/16/20 12/16/20 12/16/20 01:05 01:14 01:14 RBC 3.53 L APTT 20.1 L Sodium Potassium Chloride Carbon Dioxide BUN Creatinine Glucose AST ALT Troponin I Total Protein Albumin Urine Protein 3+ H 12/16/20 12/16/20 12/16/20 01:14 01:14 04:15 RBC APTT Sodium 135 L Potassium 6.2 H* Chloride Carbon Dioxide 20 L BUN 50 H Creatinine 4.85 H Glucose AST 50 H ALT 40 H Troponin I 0.092 H* 0.096 H* Total Protein 5.1 L Albumin 2.6 L Urine Protein 12/16/20 12/16/20 12/16/20 06:59 06:59 17:56 RBC APTT Sodium Potassium 6.1 H* 5.6 H Chloride 109 H Carbon Dioxide BUN 52 H Creatinine 4.72 H Glucose 120 H AST ALT Troponin I 0.087 H* Total Protein Albumin Urine Protein Assessment and Plan Assessment: * Recurrent syncopal spells, likely orthostatic. Patient has positive orthostatics. Patient has history of amyloidosis, which can produce autonomic dysfunction with orthostatic hypotension as well. * Rheumatoid arthritis * History of amyloidosis, with history of chemotherapy with subsequent development of peripheral neuropathy. * History of bilateral total knee arthroplasty. Plan: * Patient's symptoms are most likely due to orthostasis from autonomic neuropathy. Patient is already on Florinef 0.1 mg every 48 hours, and m idodrine 10 mg 4 times a day. I would suggest trying Northera, which can be initiated as an outpatient by cardiology or neurology (not hospital formulary). * Patient had a carotid Doppler on 11/05/2020, which revealed mild sclerotic changes bilaterally, no hemodynamic significant stenosis in either ICA. * 2-D echo from 11/06/2020 shows resting tachycardia, left ventricular size is normal. Moderate concentric LVH. EF is between 55-60%. Increased left ventricular thickness with mild speckled appearance. May be consistent with cardiac amyloidosis. Left atrium is mildly dilated. Mild aortic valve sclerosis. * CT head from 12/16/2020 normal. * We will check EEG to complete the neurological workup. * Telemetry monitoring showing sinus rhythm.
[2020-12-17] MEDS: SODIUM CHLORIDE 0.9% 1,000 ML IV SCH (17:08)
--- NOTE | 2020-12-17 20:11 | PN ---
PROGRESS NOTE CHIEF COMPLAINT: Delirium, renal failure. HISTORY OF PRESENT ILLNESS: This lady is better. She is still a little bit confused. Potassium has been corrected. Troponins were elevated and this is likely due to her renal failure. PHYSICAL EXAMINATION: She remains chronically ill in appearance and pale. She is much more oriented than yesterday. Chest is clear. The cardiac exam is normal. Abdomen is soft, nontender. IMPRESSION: 1. Delirium. 2. Frequent falling. 3. Stage IV chronic renal failure. 4. Amyloidosis. 5. Congestive heart failure. PLAN: Continue with IV fluids and continue to work on a plan with Nephrology as to how to manage her end-stage renal disease with regard to the possibility of dialysis. MMODL / IJN: [id number] /
[2020-12-17] MEDS: FAMOTIDINE 20 MG TAB PO SCH (20:41)
[2020-12-18] MEDS: SODIUM CHLORIDE 0.9% 1,000 ML IV SCH ×2 (03:26→21:14)
[2020-12-18] MEDS: LEVOTHYROXINE 25 MCG TAB PO SCH ×2 (06:32→08:54)
[2020-12-18] MEDS: MIDODRINE 5 MG TAB PO SCH ×4 (06:32→16:29)
[2020-12-18] MEDS: DORZOLAMIDE HCL 2% DROPS 10 ML BTL RIGHT EYE SCH ×2 (08:54→21:14)
[2020-12-18] MEDS: CALCIUM PO SCH (08:54)
[2020-12-18] MEDS: MAGNESIUM CHLORIDE PO SCH (08:54)
--- NOTE | 2020-12-18 11:14 | CDI ---
Documentation Clarification Form Date: 12/18/2020 10:53:50 AM From: Zoya Chin CCS, CCDS Admit Date: 12/16/2020 02:57:00 AM Patient Name: Sara Bingham Visit Number: [id number] Discharge Date: ATTENTION: The Clinical Documentation Specialists (CDI) and [facility] Coding Staff appreciate your assistance in clarifying documentation. Please respond to the clarification below the line at the bottom and electronically sign. The CDI & [facility] Coding staff will review the response and follow-up if needed. Please note: Queries are made part of the Legal Health Record. If you have any questions, please contact the author of this message via ITS. Dr. Sirena Blankenship: Atrial Fibrillation is documented in the 12/17 Nephrology Progress Note: Atrial Fibrillation with RVR, currently on Cardizem drip. Atrial Tachycardia is documented in the 12/17 Cardiology Consult. Additional clarification regarding the type of atrial fibrillation is requested. History/Risk Factors per the 12/16 ED Note: Asthma, Left Breast Cancer status post chemotherapy, Hyperlipidemia, Osteoarthritis, Rheumatoid Arthritis, Bilateral Leg Weakness, Hypothyroid. Clinical Indicators: Presented to the ED on 12/16 after a syncopal episode at home, episode of vomiting, dizziness, nausea. ED Clinical Impression: Syncope, Elevated Troponin, Hyperkalemia, Acute on Chronic Kidney Failure 12/16 VS: T 98, P 80 - 108^, R 16 - 18, BP 111/98 - 165/95, PO 98 RA, BMI: 29.3 12/16 LAB: APTT 20.1 EKG 12/16: R 125, Undetermined rhythm, RBBB, Left anterior fascicular block. Treatment 12/16: Telemetry, Orthostatic Blood Pressures, IV Insulin, IV NaBicarb, IV Calcium Gluconate, I fl Na Cl 1,000 mls @ 20 mls/hr q24H, IM Ativan, IV Dextrose 12/17 IV Cardizem Drip Bolus, IV Cardizem 125 mls @ 5 mls/hr q24H Please clarify the type of atrial fibrillation, if known: [ ] Chronic [ ] Permanent [ ] Paroxysmal [ ] Persistent [ ] Other, please specify [ ] Unable to determine (Template Last Revised: November 2020) 12/19: Query response documented in 12/[address] Krzysztof CORTEZ: No Atrial Fibrillation. CDI: SUMAYA JASON
--- NOTE | 2020-12-18 12:53 | P.PN ---
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 She follows in the office with Dr Petersen in [place]. We have been asked to see in consultation for syncope and elevated troponin. Wednesday she did a lot of walking with her son doing errands. On Saturday 12/16, she stood up and had episode of dizziness and lightheadedness. She believes she got up too fast. Apparently she lost consciousness. She states there is now way to notify staff when she falls. At the the facility shes at the they found her on the ground. Unknown down time. EMS was called and patient was put emergency department. EKG appears to be 2:1 atrial tachycardia, with right bundle branch block, HR 125, Repeat EKG this morning also appears to be atrial tachycardia, right bundle branch block, heart rate 115. nonspecific ST, T-wave abnormalities. Prior EKG in 11/16/20- EKG showed sinus rhythm, first-degree AV block, left anterior fascicular block and right bundle branch block, nonspecific ST, T-wave abnormalities. Laboratory data reviewed sodium 137, potassium 6.1, BUN 52, serum creatinine 4.7, troponin 0.09, 0.09, 0.08. Patient was started on IV fluids. Telemetry reviewed, she continues to be tachycardic HR 110-120. Most recent echocardiogram 11/06/2020- EF 55-60%, increased LV thickness that may be consistent with cardiac amyloidosis, RV is mildly enlarged, LA is mildly dilated, trace to mild mitral regurgitation, mild tricuspid regurgitation Over the previous couple of months she has had frequent episodes of syncope at home. She was recently admitted approximately 3 times November 2020 for similar episodes of syncope and had workup with EKG showing trifascicular block however no significant bradyarrhythmias noted. There was consideration of pacemaker however majority of her symptoms appear related to when she is standing and therefore patient underwent tilt table testing which showed traumatic drop in b lood pressure down to the 40s with patient losing consciousness. Therefore patient was recommended for compression stockings, high salt diet, staying hydrated. 12/17: Patient received IV Cardizem 10 mg bolus, started on a Cardizem drip at 10 mg/hr and weaned to 5mg/hr 12/18/2020: Overnight patient with increased confusion, she did not know she was in the hospital, did not know the year, thought it was [place] time. This morning, patient is pleasant, alert and oriented x 3 on exam. Her heart rate has improved. On telemetry, appears to be in atrial flutter vs sinus rhythm with PACs. EKG obtained this AM and shows sinus rhythm with sinus rhythm with first degree AV block with PACs. No atrial fibrillation/flutter noted. Patient is alert and oriented x 3. She states she is feeling better, does have occasional dizziness when standing. Blood pressure 97/57, heart rate 97, afebrile, main [facility] oxygen saturation is 97% on room air. Currently being maintained on Cardizem 5 mg, IV fluids 70ml/hr midodrine 10 mg 3 times a day. Labs, sodium 135, potassium 5.0, BUN 48, serum creatinine 4.29, triglycerides 122, cholesterol 179, LDL 96, HDL 58 PHYSICAL EXAMINATION Vital signs reviewed. CONSTITUTIONAL: No apparent distress. HEENT: Head is normocephalic. Pupils are equal, round. Sclerae anicteric. Mucous membranes of the mouth are moist. No JVD. No carotid bruit. CHEST EXAMINATION: Lungs are clear to auscultation. No chest wall tenderness is noted on palpation or with deep breathing. HEART EXAMINATION: Regular Tachycardic rate and rhythm. S1, S2 heard. No murmurs, gallops or rub. ABDOMEN: Soft, nontender. Positive bowel sounds. EXTREMITIES: 2+ peripheral pulses, no lower extremity edema and no calf tenderness. NEUROLOGIC EXAMINATION: Patient is awake, alert and oriented x3. ASSESSMENT Atrial tachycardia, however, repeat EKG at slower rate this morning, patient appears to be in sinus rhythm with first degree AV block with PACs. No atrial fibrillation noted. Orthostatic hypotension Chronic kidney disease secondary to amyloidosis Hyponatremia Dyslipidemia History of breast cancer status post lumpectomy PLAN -Will stop Cardizem -Nephrolology is following, Patient currently still does not want hemodialysis -Continue midodrine -Continue with IV hydration -Continue cardiac telemetry -Discussed going from lying position to standing position very slowly. Continue with compression stockings and discussed above the knee compression stockings. Patient may also benefit from an abdominal binder. -We will obtain records from patient's cardiology Dr. Petersen -Further recommendations based on clinical course Objective - Vital Signs Vital signs: Vital Signs Temp 98.4 F 12/18/20 03:57 Pulse 104 H 12/18/20 11:55 Resp 18 12/18/20 11:55 BP 108/60 12/18/20 11:55 Pulse Ox 97 12/18/20 11:55 Intake & Output 12/17/20 12/18/20 12/18/20 18:59 06:59 18:59 Intake Total 292.333 265.5 200 Output Total 2290 1125 Balance -1997.667 -859.5 200 Weight 68 kg Intake: Intake, IV Titration 52.333 25.5 Amount Diltiazem 125 mg In 52.333 25.5 Sodium Chloride 0.9% 100 ml @ 5 MG/HR 5 mls/hr IV .Q24H [facility] Rx#:[id number] Oral 240 240 200 Output: Urine 1200 1125 Straight 450 Uretheral (Bansal) 250 Post Void Residual 1090 Other: Voiding Method Toilet Indwelling Catheter Indwelling Catheter # Voids 1 # Bowel Movements 1 - Labs CBC & Chem 7: 12/16/20 01:14 12/17/20 08:55
--- NOTE | 2020-12-18 13:12 | PN ---
PROGRESS NOTE Patient is seen for followup for chronic kidney disease an element of acute kidney injury. She is currently maintained on IV fluids. The patient has a Bansal catheter for urine retention. Renal function slightly improved although still remains quite impaired. Creatinine down to 4.29 from 4.85 on initial admission. Mentation seems to have improved, although at times, patient does appear to be confused. This morning, patient asked me to close the door and she asked me to call her grandson who actually turned out to be her son and I updated her son regarding her condition and the fact that patient does not want any renal replacement therapy. PHYSICAL EXAMINATION: On examination today, blood pressure was 97/56, heart rate 97 per minute. She is afebrile. Examination of the heart S1, S2. Examination of the lungs, bilateral breath sounds are heard. Decreased breath sounds at bases. Abdomen is soft, nontender. Examination of lower extremities shows no significant edema. [employer] exam shows patient is moving all 4 extremities. Mentation is somewhat improved. LAB: Show sodium 135, potassium 5.0, creatinine 4.29 yesterday. ASSESSMENT: 1. Acute kidney injury, prerenal, somewhat improved. 2. Chronic kidney disease stage 5 with no plans for renal replacement therapy. 3. Hyperkalemia associated with acute kidney injury and urine retention currently status post Bansal catheter placement with improvement in potassium. 4. Severe orthostatic hypotension. 5. Atrial tachycardia being followed by Cardiology, was maintained on Cardizem drip which is now discontinued. 6. Severe orthostatic hypotension maintained on midodrine and Florinef. PLAN: Encourage increased oral intake. Decrease IV fluids if the patient is eating better. Check labs in a.m. MMODL / IJN: [id number] /
--- NOTE | 2020-12-18 13:28 | P.PN ---
Subjective Progress Note Date: 12/18/20 Patient was seen for a follow-up. Patient offers no new complaints. Patient appears somewhat delirious, shaky, inattentive, mildly paranoid. No further syncopal spells reported. Objective - Vital Signs Vital signs: Vital Signs Temp 98.4 F 12/18/20 03:57 Pulse 104 H 12/18/20 11:55 Resp 18 12/18/20 11:55 BP 108/60 12/18/20 11:55 Pulse Ox 97 12/18/20 11:55 Intake & Output 12/17/20 12/18/20 12/18/20 18:59 06:59 18:59 Intake Total 292.333 265.5 200 Output Total 2290 1125 Balance -1997.667 -859.5 200 Weight 68 kg Intake: Intake, IV Titration 52.333 25.5 Amount Diltiazem 125 mg In 52.333 25.5 Sodium Chloride 0.9% 100 ml @ 5 MG/HR 5 mls/hr IV .Q24H [facility] Rx#:[id number] Oral 240 240 200 Output: Urine 1200 1125 Straight 450 Uretheral (Bansal) 250 Post Void Residual 1090 Other: Voiding Method Toilet Indwelling Catheter Indwelling Catheter # Voids 1 # Bowel Movements 1 - Exam Patient is alert and awake. Slightly delirious. Denies any focal numbness. Detailed examination deferred. - Labs CBC & Chem 7: 12/16/20 01:14 12/17/20 08:55 Assessment and Plan Assessment: * Recurrent syncopal spells, likely orthostatic. Patient has positive orthostatics. Patient has history of amyloidosis, which can produce autonomic dysfunction with orthostatic hypotension as well. * Rheumatoid arthritis * History of amyloidosis, with history of chemotherapy with subsequent development of peripheral neuropathy. * History of bilateral total knee arthroplasty. Plan: * Patient's symptoms are most likely due to orthostasis from autonomic neuropathy. Patient is already on Florinef 0.1 mg every 48 hours, and midodrine 10 mg 4 times a day. I would suggest trying Northera, which can be initiated as an outpatient by cardiology or neurology (not hospital formulary) . * Patient had a carotid Doppler on 11/05/2020, which revealed mild sclerotic changes bilaterally, no hemodynamic significant stenosis in either ICA. * 2-D echo from 11/06/2020 shows resting tachycardia, left ventricular size is normal. Moderate concentric LVH. EF is between 55-60%. Increased left ventricular thickness with mild speckled appearance. May be consistent with cardiac amyloidosis. Left atrium is mildly dilated. Mild aortic valve sclerosis. * CT head from 12/16/2020 normal. * Await EEG to complete the neurological workup. * Telemetry monitoring showing sinus rhythm. * Neurologically no other workup indicated.
--- NOTE | 2020-12-18 19:00 | PN ---
PROGRESS NOTE DATE OF SERVICE: 12/18/2020 CHIEF COMPLAINT: Delirium and end-stage renal disease. HISTORY OF PRESENT ILLNESS: This is a lady sitting up in a chair and seems alert, but she is confused. She can remember the year and the month and her name and with difficulty, remembered what hospital she was in. She was otherwise confused. She was asked about end of life issues and that we do not have an advance directive for her in the office. She has always refused to answer it or fill it out. She states that she does not want dialysis or kidney transplant and she, "just wants to go home." She does realize that she is unable to survive living alone. She does not want to be resuscitated. I had a lengthy discussion with her [id number] later in the day, who indicates that when she was compos mentis, she was insistent on not being resuscitated in the event of cardiac and she did not want dialysis or kidney transplant. She was agreeable to hospice. PHYSICAL EXAMINATION: She remains pale, chronically ill. She is slightly agitated, but less so than the last few days. Chest is clear. Cardiac exam is normal. Abdomen is soft. IMPRESSION: 1. Stage IV chronic kidney disease. 2. Congestive heart failure. 3. Amyloidosis. 4. Delirium. 5. Dehydration. PLAN: Discussed the case further with the family who at this time, is requesting hospice referral. This will be explained to the patient tomorrow and a consult will be placed. She will likely go back to [facility]. SABRINA / PRAVIN: [id number] /
[2020-12-18] MEDS: FAMOTIDINE 20 MG TAB PO SCH (21:14)
[2020-12-19] MEDS: MIDODRINE 5 MG TAB PO SCH ×3 (06:54→17:01)
[2020-12-19] MEDS: LEVOTHYROXINE 25 MCG TAB PO SCH (07:02)
[2020-12-19 08:17] LABS: Calcium 8.1 mg/dL (8.4-10.2); Potassium 3.9 mmol/L (3.5-5.1)
[2020-12-19] MEDS: ATORVASTATIN 40 MG TAB PO SCH (08:21)
[2020-12-19] MEDS: DORZOLAMIDE HCL 2% DROPS 10 ML BTL RIGHT EYE SCH ×2 (08:22→20:45)
[2020-12-19] MEDS: CALCIUM PO SCH (08:22)
[2020-12-19] MEDS: MAGNESIUM CHLORIDE PO SCH (08:22)
--- NOTE | 2020-12-19 08:26 | EEG ---
ELECTROENCEPHALOGRAM REPORT DATE OF SERVICE: 12/18/2020 PREAMBLE: This is a 80-year-old female with recurrent syncopal spells. This study is performed to evaluate for any epileptiform activity. EEG FINDINGS: This is a 21 channel routine EEG recording in a patient utilizing 10/20 international system with referential and bipolar montages. Background consists of well-developed, moderately well regulated, mixed frequencies of 6-7 hertz theta, intermixed with some alpha activity. Background does not seem to be reactive to eye opening or closing. Photic driving response was not seen. Different stages of sleep were not seen. Some left temporal sharp looking waves were seen, but appeared very artifactual in nature. No focal or generalized epileptiform activity was seen. IMPRESSION: This is an abnormal EEG due to background slowing of mild degree. This is suggestive of generalized cerebral dysfunction, nonspecific etiology, may be related to encephalopathy of metabolic, vascular or degenerative cause. No epileptiform activity was seen. MMODL / IJN: [id number] /
[2020-12-19] MEDS ORDERED: DILTIAZEM DRIP BOLUS FROM BAG 1 MG SOLN IV ONE (08:52)
[2020-12-19] MEDS ORDERED: DILTIAZEM 125 MG in SODIUM CHLORIDE 0.9% 100 ML IV SCH (09:00)
--- NOTE | 2020-12-19 09:05 | CDI ---
Documentation Clarification Form Date: 12/19/2020 08:32:28 AM From: Zoya Chin CCS, CCDS Admit Date: 12/16/2020 02:57:00 AM Patient Name: Sara Bingham Visit Number: [id number] Discharge Date: ATTENTION: The Clinical Documentation Specialists (CDI) and [facility] Coding Staff appreciate your assistance in clarifying documentation. Please respond to the clarification below the line at the bottom and electronically sign. The CDI & [facility] Coding staff will review the response and follow-up if needed. Please note: Queries are made part of the Legal Health Record. If you have any questions, please contact the author of this message via ITS. Dr. Que Pablo: Confusion is documented in the 12/16 Nephrology Consult, the 12/16 H/P, the 12/17 Neurology Consult and subsequent Progress Notes. Per the nursing notes on 12/18, patient is very confused this morning, refusing medications, became angry over need to restart IV. Additional clarification regarding the patient's confusion is requested. History/Risk Factors per the 12/16 H/P & the 12/16 ED Note: End Stage Renal Failure, CKD mineral bone disorder, Carcinoma of the Left Breast status post Lumpectomy, Amyloidosis status post Chemotherapy, Numbness & tingling to bilateral hands & feet from Chemo, bilateral Leg Weakness > Rt Leg, Hypothyroid, Frequent falls, Asthma, Hyperlipidemia, Osteoarthritis, Rheumatoid Arthritis. Clinical Indicators: Presented to the ED on 12/16 via EMS with Syncope & Dizziness, episode of vomiting. ED Clinical Impression: Syncope, Elevated Troponin, Hyperkalemia, Acute on Chronic Kidney Failure 12/16 ED: T 98, P 80 - 108, R 16, BP 111/98, PO 98 RA, BMI: 22.2 12/16 LAB: APTT 20.1, Na 135, K 6.2, CO2 20, BUN 50, Cr 4.85, AST 50, ALT 40, Troponin 0.092, 0.087; Total protein 5.1, Albumin 2.6 12/16 UA: 3+ Protein 12/16: COVID negative 12/16 CXR: No acute findings or change, CT Brain: No acute findings. Treatment: IV Insulin, IV NaBicarb, IV Calcium Gluconate/NaCl, IV Na Cl 1,000 mls @ 20 mls/hr q24H, IM Ativan 2mg x1 Home meds: Lipitor, INH Ventolin, Proamatine, mag Cl w/Calcium, Synthroid, Fludrocortisone Acetate, Pepcid, Vit D2. Please clarify if any of the following is present: [ ] Metabolic Encephalopathy [ ] Toxic Encephalopathy [ ] Other cause of confusion, please specify: [ ] Unable to determine (Template Last Revised: September 2020) MTDD
[2020-12-19] MEDS: FLUDROCORTISONE 0.1 MG TAB PO SCH ×2 (10:57→11:04)
[2020-12-19] MEDS: DILTIAZEM ORAL 60 MG TAB PO SCH ×2 (10:57→11:04)
[2020-12-19] MEDS ORDERED: SODIUM CHLORIDE 0.9% 1,000 ML IV SCH (11:02)
--- NOTE | 2020-12-19 11:35 | PN ---
PROGRESS NOTE DATE OF SERVICE: 12/19/2020 CHIEF COMPLAINT: Chronic renal failure and amyloidosis with delirium. HISTORY OF PRESENT ILLNESS: This lady seems to be a little bit more clear mentally each day. After discussing this case with her [id number], the patient was once again asked about end-of-life matters. She is refusing to be resuscitated, go on dialysis, etc. and she is agreeable to hospice. PHYSICAL EXAMINATION: She remains chronically ill in appearance. Chest is clear. Cardiac exam is normal. The abdomen is soft, nontender. Extremities are normal. IMPRESSION: 1. End-stage renal disease. 2. Amyloidosis. 3. Congestive heart failure. 4. Delirium. 5. Encephalopathy. PLAN: Hospice referral. MMODL / CLIFFORDN: [id number] /
--- NOTE | 2020-12-19 13:33 | PN ---
PROGRESS NOTE Patient is seen for followup for chronic kidney disease and acute kidney injury, prerenal and secondary to hypotension. There was also an element of urine retention. Renal function is slowly improved. The patient, however, has developed edema upper extremities. She is not eating much. I will discontinue the IV fluids and she is encouraged to increase her oral intake. There are no plans for renal replacement therapy. PHYSICAL EXAMINATION: On examination today, blood pressure was 130/83, heart rate 106 per minute. Patient is afebrile. Examination of the heart S1, S2. Examination of the lungs, bilateral breath sounds are heard. Decreased breath sounds at bases. Abdomen is soft, nontender. Examination lower extremities shows 1+ edema noted bilaterally upper extremities. KNIFER UP exam shows patient is moving all 4 extremities. She has been confused on and off. Currently appears to be fairly appropriate. LAB: Show sodium 134, potassium 3.9, chloride 109, CO2 is 22, BUN 39, serum creatinine 3.9 mg/dL. ASSESSMENT: 1. Acute kidney injury, prerenal, currently slightly improved. 2. Hyperkalemia associated with acute kidney injury and urine retention status post Bansal catheter placement and improvement in renal function. 3. Mental status changes, possibly related to underlying uremia which seems to have improved with improvement in renal function. 4. Chronic kidney disease stage 5 secondary to amyloidosis nephrosclerosis. No plans for renal replacement therapy. 5. Severe orthostatic hypotension maintained on midodrine and Florinef. 6. Atrial tachycardia being followed by Cardiology. Currently off of Cardizem drip and maintained on oral Cardizem. PLAN: Discontinue IV fluids. Encourage increased oral intake. Consider physical therapy. MMODL / IJN: [id number] /
--- NOTE | 2020-12-19 14:07 | P.PN ---
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 She follows in the office with Dr Petersen in [place]. We have been asked to see in consultation for syncope and elevated troponin. Wednesday she did a lot of walking with her son doing errands. On Saturday 12/16, she stood up and had episode of dizziness and lightheadedness. She believes she got up too fast. Apparently she lost consciousness. She states there is now way to notify staff when she falls. At the the facility shes at the they found her on the ground. Unknown down time. EMS was called and patient was put emergency department. EKG appears to be 2:1 atrial tachycardia, with right bundle branch block, HR 125, Repeat EKG this morning also appears to be atrial tachycardia, right bundle branch block, heart rate 115. nonspecific ST, T-wave abnormalities. Prior EKG in 11/16/20- EKG showed sinus rhythm, first-degree AV block, left anterior fascicular block and right bundle branch block, nonspecific ST, T-wave abnormalities. Laboratory data reviewed sodium 137, potassium 6.1, BUN 52, serum creatinine 4.7, troponin 0.09, 0.09, 0.08. Patient was started on IV fluids. Telemetry reviewed, she continues to be tachycardic HR 110-120. Most recent echocardiogram 11/06/2020- EF 55-60%, increased LV thickness that may be consistent with cardiac amyloidosis, RV is mildly enlarged, LA is mildly dilated, trace to mild mitral regurgitation, mild tricuspid regurgitation Over the previous couple of months she has had frequent episodes of syncope at home. She was recently admitted approximately 3 times November 2020 for similar episodes of syncope and had workup with EKG showing trifascicular block however no significant bradyarrhythmias noted. There was consideration of pacemaker however majority of her symptoms appear related to when she is standing and therefore patient underwent tilt table testing which showed traumatic drop in blood pressure down to the 40s with patient losing consciousness. Therefore patient was recommended for compression stockings, high salt diet, staying hydrated. 12/17: Patient received IV Cardizem 10 mg bolus, started on a Cardizem drip at 10 mg/hr and weaned to 5mg/hr 12/18/2020: Overnight patient with increased confusion, she did not know she was in the hospital, did not know the year, thought it was [place] time. This morning, patient is pleasant, alert and oriented x 3 on exam. Her heart rate has improved. On telemetry, appears to be in atrial flutter vs sinus rhythm with PACs. EKG obtained this AM and shows sinus rhythm with sinus rhythm with first degree AV block with PACs. No atrial fibrillation/flutter noted. 12/19/2020: Patient examined at bedside, resting comfortably in bed. Patient is alert and oriented x 3. She has no complaints. She is refusing PO medications, stating "I just want to , its my time". On Telemetry, patient tachycardic HR 120-130s, EKG obtained patient in SVT, with PVC and converted back to sinus rhythm. No atrial fibrillation noted. Patient given 5mg IV cardizem, started on drip. She is currently in sinus mechanism HR low 100s. Cardizem drip discontinued. She was no hypertensive, Blood pressure 154/92 heart rate 106, afebrile, maintaining oxygen saturation is 97% on room air. Currently being maintained on Cardizem 60mg TID, IV fluids 20ml/hr midodrine 10 mg 3 times a day. Her serum creatinine is improving,. Labs, sodium 134, potassium 3.9, BUN 39, serum creatinine 3.91. PHYSICAL EXAMINATION Vital signs reviewed. CONSTITUTIONAL: No apparent distress. HEENT: Head is normocephalic. Pupils are equal, round. Sclerae anicteric. Mucous membranes of the mouth are moist. No JVD. No carotid bruit. CHEST EXAMINATION: Lungs are clear to auscultation. No chest wall tenderness is noted on palpation or with deep breathing. HEART EXAMINATION: Regular Tachycardic rate and rhythm. S1, S2 heard. No murmurs, gallops or rub. ABDOMEN: Soft, nontender. Positive bowel sounds. EXTREMITIES: 2+ peripheral pulses, no lower extremity edema and no calf tenderness. NEUROLOGIC EXAMINATION: Patient is awake, alert and oriented x3. ASSESSMENT Atrial tachycardia, however, repeat EKG at slower rate this morning, patient appears to be in sinus rhythm with first degree AV block with PACs. No atrial fibrillation noted. Orthostatic hypotension Chronic kidney disease secondary to amyloidosis Hyponatremia Dyslipidemia History of breast cancer status post lumpectomy History of paroxysmal atrial fibrillation- declined anticoagulation PLAN -Further review of patient's outpatient records recent office visit with Dr. Petersen on November 14, 2020, states that patient's history includes SVT and was started on metoprolol succinate 25mg daily and was controlled on this medication. History of paroxysmal atrial fibrillation, apparently had a few strips faxed that showed SVT/Afib and no pauses, this has been newly diagnosed, Dr. Petersen discussed NOAC and Risk of stroke and bleeding with patient. Patient continued to decline anticoagulation. We will continue to address this with the patient. -Will stop Cardizem, restart patient's home metoprolol succinate 25mg daily. -Nephrolology is following- discontinue IV fluids -Per primary hospice referral has been placed -Continue cardiac telemetry -Further recommendations based on clinical course -On discharge, recommend patient follow up with her primary civil design specialist Dr. Petersen Objective - Vital Signs Vital signs: Vital Signs Temp 98.6 F 12/19/20 11:07 Pulse 106 H 12/19/20 11:07 Resp 16 12/19/20 11:07 BP 130/83 12/19/20 11:07 Pulse Ox 97 12/19/20 11:07 Intake & Output 12/18/20 12/19/20 12/19/20 18:59 06:59 18:59 Intake Total 200 0 Output Total 325 500 200 Balance -125 -500 -200 Weight 51.5 kg Intake: Oral 200 0 Output: Urine 325 500 200 Other: Voiding Method Indwelling Catheter Indwelling Catheter Indwelling Catheter - Labs CBC & Chem 7: 12/16/20 01:14 12/19/20 07:37 Labs: Abnormal Lab Results - Last 24 Hours (Table) 12/19/20 Range/Units 07:37 Sodium 134 L (137-145) mmol/L Chloride 109 H (98-107) mmol/L BUN 39 H (7-17) mg/dL Creatinine 3.91 H (0.52-1.04) mg/dL Glucose 104 H (74-99) mg/dL Calcium 8.1 L (8.4-10.2) mg/dL
--- NOTE | 2020-12-19 14:47 | P.PN ---
Subjective Progress Note Date: 12/19/20 Patient was seen for a follow-up. Patient offers no new complaints. Patient is much more calm today. No further syncopal or fainting spells. Patient tells me that all of her syncopal or near syncopal spells have occurred while she was standing up on her feet. Never occur sitting or laying. Patient denies headache. Telemetry monitoring showing atrial fibrillation, PVCs. Objective - Vital Signs Vital signs: Vital Signs Temp 98.6 F 12/19/20 11:07 Pulse 106 H 12/19/20 11:07 Resp 16 12/19/20 11:07 BP 130/83 12/19/20 11:07 Pulse Ox 97 12/19/20 11:07 Intake & Output 12/18/20 12/19/20 12/19/20 18:59 06:59 18:59 Intake Total 200 0 Output Total 325 500 200 Balance -125 -500 -200 Weight 51.5 kg Intake: Oral 200 0 Output: Urine 325 500 200 Other: Voiding Method Indwelling Catheter Indwelling Catheter Indwelling Catheter - Exam Patient is alert and awake. Patient knows it is [facility]. She states it is the month of November and the year is . Speech is clear. Denies any focal numbness. Detailed examination deferred. - Labs CBC & Chem 7: 12/16/20 01:14 12/19/20 07:37 Labs: Abnormal Lab Results - Last 24 Hours (Table) 12/19/20 Range/Units 07:37 Sodium 134 L (137-145) mmol/L Chloride 109 H (98-107) mmol/L BUN 39 H (7-17) mg/dL Creatinine 3.91 H (0.52-1.04) mg/dL Glucose 104 H (74-99) mg/dL Calcium 8.1 L (8.4-10.2) mg/dL Assessment and Plan Assessment: * Recurrent syncopal spells, likely orthostatic. Patient has positive orthostatics. Patient has history of amyloidosis, which can produce autonomic dysfunction with orthostatic hypotension as well. * Acute on chronic renal insufficiency, improving. * Rheumatoid arthritis * History of amyloidosis, with history of chemotherapy with subsequent development of peripheral neuropathy. * History of bilateral total knee arthroplasty. * History of paroxysmal atrial fibrillation, declined anticoagulation, per cardiology report. Plan: * Patient's symptoms are most likely due to orthostasis from autonomic neuropathy. Patient is already on Florinef 0.1 mg every 48 hours, and mido drine 10 mg 4 times a day. I would suggest trying Northera, which can be initiated as an outpatient by cardiology or neurology (not hospital formulary). * Patient had a carotid Doppler on 11/05/2020, which revealed mild sclerotic changes bilaterally, no hemodynamic significant stenosis in either ICA. * 2-D echo from 11/06/2020 shows resting tachycardia, left ventricular size is normal. Moderate concentric LVH. EF is between 55-60%. Increased left ventricular thickness with mild speckled appearance. May be consistent with cardiac amyloidosis. Left atrium is mildly dilated. Mild aortic valve sclerosis. * CT head from 12/16/2020 normal. * EEG was mildly abnormal due to background slowing. This is suggestive of generalized cerebral dysfunction, nonspecific etiology, may be related to ence phalopathy of metabolic, vascular or degenerative causes. No epileptiform activity was seen. * Patient has history of atrial fibrillation in the past. Patient has continued to decline anticoagulation. Suggest aspirin 81 mg if no contraindications. Will defer to IM/cardiology. Patient apparently ALLERGIC to aspirin. * Telemetry monitoring showing sinus rhythm. * Neurologically no other workup indicated. Neurology will sign off.
[2020-12-19] MEDS: METOPROLOL SUCCINATE (ER) 25 MG TAB.ER.24H PO SCH (16:44)
[2020-12-19] MEDS: SODIUM CHLORIDE 0.9% 1,000 ML IV SCH (19:44)
[2020-12-19] MEDS: FAMOTIDINE 20 MG TAB PO SCH (20:45)
--- NOTE | 2020-12-19 23:10 | MISC ---
MISCELLANOUS REPORT Other causes: Confusion and encephalopathy secondary to amyloidosis. MMODL / IJN: [id number] /
[2020-12-20] MEDS: LEVOTHYROXINE 25 MCG TAB PO SCH (06:50)
[2020-12-20] MEDS: MIDODRINE 5 MG TAB PO SCH ×2 (06:50→12:30)
[2020-12-20 08:32] VITALS: BP 155/100; PULSE 132; RESP 18; TEMP 98.3
[2020-12-20] MEDS: ATORVASTATIN 40 MG TAB PO SCH (10:02)
[2020-12-20] MEDS: DORZOLAMIDE HCL 2% DROPS 10 ML BTL RIGHT EYE SCH (10:03)
[2020-12-20] MEDS: MAGNESIUM CHLORIDE PO SCH (10:03)
[2020-12-20] MEDS: CALCIUM PO SCH (10:03)
[2020-12-20] MEDS: METOPROLOL SUCCINATE (ER) 25 MG TAB.ER.24H PO SCH (10:03)
--- NOTE | 2020-12-20 10:35 | MISC ---
MISCELLANOUS REPORT Metabolic encephalopathy and amyloidosis. MMODL / IJN: [id number] /
--- NOTE | 2020-12-20 11:56 | P.PN ---
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 She follows in the office with Dr Petersen in [place]. We have been asked to see in consultation for syncope and elevated troponin. Wednesday she did a lot of walking with her son doing errands. On Saturday 12/16, she stood up and had episode of dizziness and lightheadedness. She believes she got up too fast. Apparently she lost consciousness. She states there is now way to notify staff when she falls. At the the facility shes at the they found her on the ground. Unknown down time. EMS was called and patient was put emergency department. EKG appears to be 2:1 atrial tachycardia, with right bundle branch block, HR 125, Repeat EKG this morning also appears to be atrial tachycardia, right bundle branch block, heart rate 115. nonspecific ST, T-wave abnormalities. Prior EKG in 11/16/20- EKG showed sinus rhythm, first-degree AV block, left anterior fascicular block and right bundle branch block, nonspecific ST, T-wave abnormalities. Laboratory data reviewed sodium 137, potassium 6.1, BUN 52, serum creatinine 4.7, troponin 0.09, 0.09, 0.08. Patient was started on IV fluids. Telemetry reviewed, she continues to be tachycardic HR 110-120. Most recent echocardiogram 11/06/2020- EF 55-60%, increased LV thickness that may be consistent with cardiac amyloidosis, RV is mildly enlarged, LA is mildly dilated, trace to mild mitral regurgitation, mild tricuspid regurgitation Over the previous couple of months she has had frequent episodes of syncope at home. She was recently admitted approximately 3 times November 2020 for similar episodes of syncope and had workup with EKG showing trifascicular block however no significant bradyarrhythmias noted. There was consideration of pacemaker however majority of her symptoms appear related to when she is standing and therefore patient underwent tilt table testing which showed traumatic drop in blood pressure down to the 40s with patient losing consciousness. Therefore patient was recommended for compression stockings, high salt diet, staying hydrated. 12/17: Patient received IV Cardizem 10 mg bolus, started on a Cardizem drip at 10 mg/hr and weaned to 5mg/hr 12/18/2020: Overnight patient with increased confusion, she did not know she was in the hospital, did not know the year, thought it was [place] time. This morning, patient is pleasant, alert and oriented x 3 on exam. Her heart rate has improved. On telemetry, appears to be in atrial flutter vs sinus rhythm with PACs. EKG obtained this AM and shows sinus rhythm with sinus rhythm with first degree AV block with PACs. No atrial fibrillation/flutter noted. \ Outside records obtained: Recent office visit with Dr. Petersen on November 14, 2020, states that patient's history includes SVT and was started on metoprolol succi joshua 25mg daily and was controlled on this medication. History of paroxysmal atrial fibrillation, apparently had a few strips faxed that showed SVT/Afib and no pauses, this has been newly diagnosed, Dr. Petersen discussed NOAC and Risk of stroke and bleeding with patient. Patient continued to decline anticoagulation. 12/20/2020: Patient examined at bedside, resting comfortably in bed. On Telemetry, patient tachycardic HR 120-130s, She is refusing PO medications, she wants to go to hospice at this time EKG obtained yesterday patient in SVT, with PVC and converted back to sinus rhythm. No atrial fibrillation noted. Blood pressure 155/100 heart rate 132, afebrile, maintaining oxygen saturation is 96% on room air. PHYSICAL EXAMINATION Vital signs reviewed. CONSTITUTIONAL: No apparent distress. HEENT: Neck supple. CHEST EXAMINATION: Lungs are clear to auscultation. HEART EXAMINATION: Regular Tachycardic rate and rhythm. S1, S2 heard. No murmurs, gallops or rub. ABDOMEN: Soft, nontender. Positive bowel sounds. EXTREMITIES: 2+ peripheral pulses, no lower extremity edema and no calf tender ness. NEUROLOGIC EXAMINATION: Patient is awake, alert and oriented x3. ASSESSMENT Atrial tachycardia, however, repeat EKG at slower rate this morning, patient appears to be in sinus rhythm with first degree AV block with PACs. No atrial fibrillation noted. Orthostatic hypotension Chronic kidney disease secondary to amyloidosis Hyponatremia Dyslipidemia History of breast cancer status post lumpectomy History of paroxysmal atrial fibrillation- declined anticoagulation PLAN -Plan for patient to be discharged with hospice care -We will continue patient's home cardiac medications as ordered -No further recommendations from cardiology perspective, we will sign off at this time Objective - Vital Signs Vital signs: Vital Signs Temp 98.3 F 12/20/20 08:25 Pulse 132 H 12/20/20 08:25 Resp 18 12/20/20 08:25 BP 155/100 12/20/20 08:25 Pulse Ox 96 12/20/20 08:25 Intake & Output 12/19/20 12/20/20 12/20/20 18:59 06:59 18:59 Intake Total 0 120 Output Total 200 650 Balance -200 -650 120 Weight 73 kg Intake: Oral 0 120 Output: Urine 200 650 Other: Voiding Method Indwelling Catheter Indwelling Catheter Indwelling Catheter - Labs CBC & Chem 7: 12/16/20 01:14 12/19/20 07:37
--- NOTE | 2020-12-20 12:23 | DS ---
DISCHARGE SUMMARY CHIEF COMPLAINT: Frequent falling and confusion. HISTORY OF PRESENT ILLNESS AND PHYSICAL EXAMINATION: Details of this lady's history and physical can be found in the initial workup. LABORATORY STUDIES: While she has hospital, she had laboratory studies, details of which can be found in the laboratory section of her chart. COURSE IN THE HOSPITAL: After admission, she was placed on bedrest and started on intravenous fluids. She became quite delirious. She remained confused during hospitalization, which seemed to slowly improve. It was determined that she likely had a metabolic encephalopathy secondary to her end-stage renal disease, which was, in turn, due to amyloidosis. This could also have been affecting her SENIOR PRIVATE CLIENT ADVISOR directly. It was determined that she was not able to go back to [facility] and would require long-term care for the balance of her life. She did not have an advance directive in our office, although she had been encouraged on numerous occasions to sign one in the past. The [id number] has been involved in helping her with decisions and indicated that the patient did not want to be resuscitated, to be on dialysis, or in any other way be treated for end of life and that would request hospice. The patient became less confused and confirmed this herself. She was referred to hospice. Arrangements were made for her to go to [facility] with hospice care. FINAL DIAGNOSES: 1. End-stage renal disease. 2. Amyloidosis. 3. Metabolic encephalopathy. 4. Frequent falling. 5. Orthostatic hypotension. 6. Delirium. OPERATIONS: None. CONSULTATIONS: Nephrology. She is not improved. MMALEXAL / CLIFFORDN: [id number] /
--- NOTE | 2020-12-20 12:32 | PN ---
PROGRESS NOTE Chronic kidney disease and acute kidney injury. She was admitted to the hospital with mental status changes, volume depletion. She had urine retention for which she currently has a Bansal catheter. There are no plans of starting renal replacement therapy as patient has refused dialysis previously. PHYSICAL EXAMINATION: On examination today, she is comfortable. Blood pressure 155/100, heart rate 130 per minute. She is afebrile. Examination of the heart S1, S2. Examination of the lungs, bilateral breath sounds are heard. Abdomen is soft, nontender. Examination of lower extremities shows no significant edema. ENTRY LEVEL ASSISTANT MANAGER exam shows patient is moving all 4 extremities. She has been confused at times. LABS: No labs available from today. On 12/19/2020, creatinine down to 3.9 from 4.8 on initial admission. Potassium 3.9, sodium 134. ASSESSMENT: 1. Acute kidney injury prerenal currently improved. 2. Chronic kidney disease secondary to amyloidosis, stage 5 with no plans for renal replacement therapy. 3. Mental status changes, possibly related to underlying dementia, currently improved. 4. Orthostatic hypotension. Maintained on midodrine and Florinef. 5. Hyperkalemia associated with acute kidney injury and urine retention. Currently improved. 6. Atrial tachycardia. Being followed by Cardiology. Currently off Cardizem drip. However, her heart rate was noted to be elevated again. PLAN: Encourage increased oral intake. Continue off IV fluids. MMODL / IJN: [id number] /
== END 2020-12-20 14:18 | disposition hospice, inpatient (51) | DRG 683 ==
LOC: EC 00:48 → 3SCARD 02:57
PROVIDERS: ADMIT Family Medicine; ATTEND Family Medicine
DX: N17.9 Acute kidney failure, unspecified (principal); I13.2 Hypertensive heart and chronic kidney disease with heart failure and with stage 5 chronic kidney disease, or end stage renal disease; E85.9 Amyloidosis, unspecified; E87.1 Hypo-osmolality and hyponatremia; G93.49 Other encephalopathy; N18.6 End stage renal disease; E78.5 Hyperlipidemia, unspecified; E03.9 Hypothyroidism, unspecified; Z20.822 Contact with and (suspected) exposure to COVID-19; Z78.1 Physical restraint status; Z79.890 Hormone replacement therapy; Z79.899 Other long term (current) drug therapy; Z80.3 Family history of malignant neoplasm of breast; Z82.49 Family history of ischemic heart disease and other diseases of the circulatory system; Z85.3 Personal history of malignant neoplasm of breast; Z92.21 Personal history of antineoplastic chemotherapy; Z96.653 Presence of artificial knee joint, bilateral; Z99.2 Dependence on renal dialysis; F32.9 Major depressive disorder, single episode, unspecified; F41.9 Anxiety disorder, unspecified; E86.0 Dehydration; E87.5 Hyperkalemia; I50.9 Heart failure, unspecified; I95.1 Orthostatic hypotension; J45.909 Unspecified asthma, uncomplicated; M06.9 Rheumatoid arthritis, unspecified; M89.9 Disorder of bone, unspecified; Z51.5 Encounter for palliative care; Z66 Do not resuscitate; I44.0 Atrioventricular block, first degree; G62.0 Drug-induced polyneuropathy; H26.9 Unspecified cataract; M19.90 Unspecified osteoarthritis, unspecified site
CPT/HCPCS: 36415; 70450; 71046; 80048; 80053; 80061; 81001; 82150; 83605; 83690; 84132; 84484; 85025; 85610; 85730; 87635; 93005; 94760; 95816; 96374; 96375; 99285